=== PATIENT | female | born 1970 | race Caucasian/White ===

== ENCOUNTER 2019-09-11 12:03 | Emergency (ER) | payer MEDICARE, MEDICAID, SELFPAY ==
--- NOTE | ~2019-09-11 | CT_ITS ---
EXAMINATION: CT abdomen pelvis w con DATE: 09/11/2019 12:52 INDICATION: Abdominal pain. Nausea and vomiting. TECHNIQUE: Computed tomography (CT) of the abdomen and pelvis was performed with 100 mL Omnipaque 350 intravenous contrast. Automated exposure control and iterative reconstruction technique were employe d. The dose-length product was 387.19 mGy-cm. COMPARISON: CT abdomen and pelvis 12/28/2018, 10/03/2013 FINDINGS: The visualized portions of the lung bases demonstrate mild atelectasis. No pleural effusion . The heart size is normal. No pericardial effusion. Again seen is a chronic 15 mm mass in right hepa tic lobe, likely benign. There are changes of cholecystectomy. The spleen, pancreas, adrenal glands, and kidneys are normal. There are no dilated loops of bowel. The appendix is not visualized. There is a right inguinal hernia containing fat. There are no pathologically enlarged lymph nodes. There is n o free intraperitoneal fluid. There is mild thoracolumbar spondylosis. IMPRESSION: 1. Right inguinal hernia containing fat. Reviewed, dictated and finalized at location A.
[2019-09-11 12:02] VITALS: BP 146/105; PULSE 77; RESP 20; TEMP 37.7; O2SAT 100
[2019-09-11] MEDS: LACTATED RINGERS 1,000 ML 999 ML IV CONT (12:16)
[2019-09-11] MEDS: ONDANSETRON INJ 4 MG/2 ML VIAL IV PUSH (12:18)
[2019-09-11] MEDS: FAMOTIDINE 20 MG/2 ML VIAL IV PUSH (12:18)
--- NOTE | 2019-09-11 12:21 | ED.ABDPAIN ---
HPI - Abdominal Pain General Chief Complaint: Abdominal Pain <Raghu Esquivel PA-C - Last Filed: 09/11/19 13:40> Stated Complaint: ABD PAIN, N/V/D <Raghu Esquivel PA-C - Last Filed: 09/11/19 13:40> Source: patient and EMS <KATE Betancur Last Filed: 09/11/19 13:40> Mode of arrival: ambulatory <Raghu Esquivel PA-C - Last Filed: 09/11/19 13:40> Limitations: no limitations <Raghu Esquivel PA-C - Last Filed: 09/11/19 13:40> History of Present Illness HPI narrative: Patient is a 49-year-old female who presents to emergency department per EMS for evaluation of abdominal pain for the last 3 days noting sharp stabbing pain throughout the abdomen with associated emesis that occurred today patient not take anything for her symptoms patient notes irritable bowel disease. Patient notes having had colonoscopy in December. Patient is followed by Dr. Ayala. <Raghu Esquivel PA-C - Last Filed: 09/11/19 13:40> Related Data Allergies/Adverse Reactions: Allergies Allergy/AdvReac Type Severity Reaction Status Date / Time NSAIDS (Non-Steroidal Allergy Severe Verified 10/03/16 10:44 Anti-Inflamma ketorolac Allergy Intermediate Verified 12/28/18 15:23 ciprofloxacin Allergy Unknown Verified 10/03/16 10:44 Sulfa (Sulfonamide Allergy Unknown Verified 10/03/16 10:44 Antibiotics) <Raghu Esquivel PA-C - Last Filed: 09/11/19 13:40> Review of Systems Review of Systems: All systems reviewed & are unremarkable except as noted in HPI and below <Raghu Esquivel PA-C - Last Filed: 09/11/19 13:40> PMFSH Past Medical History Medical History: Medical History Anemia Anxiety Arthritis Asthma Bronchitis C. difficile diarrhea Colitis COPD (chronic obstructive pulmonary disease) Crohn's disease Depression DJD (degenerative joint disease) Fibroids GERD (gastroesophageal reflux disease) History of angina History of bipolar disorder History of osteoporosis HLD (hyperlipidemia) HPV (human papilloma virus) anogenital infection IBS (irritable bowel syndrome) Migraine Ovarian cancer Pancreatitis Pneumonia Previous known suicide attempt x2 Schizoaffective disorder UTI (urinary tract infection) <Raghu Esquivel PA-C - Last Filed: 09/11/19 13:40> Surgical History Surgical History: Surgical History H/O right knee surgery H/O Spinal surgery T12 cartilage removed H/O: hysterectomy History of cholecystectomy History of tonsillectomy <Raghu Esquivel PA-C - Last Filed: 09/11/19 13:40> Social History Social History: Social History Smoking status: Current every day smoker Gender identity (if verbalized by the patient): Female <Raghu Esuqivel PA-C - Last Filed: 09/11/19 13:40> Exam Narrative: Exam Narrative: GENERAL: Ill-appearing, well-nourished, and in acute pain HEAD: Normocephalic, atraumatic. EYES: PERRLA and EOMI. ENT: Nares clear, no rhinorrhea or epistaxis. Mucous membranes moist. Oropharynx without tonsillar hypertrophy exudate or other lesions. NECK: Supple. No adenopathy or masses. CHEST: Clear to auscultation. No respiratory distress. No wheezes rales or rhonchi HEART: Regular rate and rhythm. No murmur heard. Normal peripheral pulses. ABDOMEN: Abdomen is firm with generalized tenderness, nondistended, normal active bowel sounds. EXTREMITIES: Normal range of motion. No edema. SKIN: Warm, dry, no rash. NEURO: No focal deficits. Alert and oriented x3. Cranial nerves II through XII grossly intact PSYCH: Normal mood and affect. <Raghu Esquivel PA-C - Last Filed: 09/11/19 13:40> Course Course Emergency Course: Patient in the room aware of case findings treatment plan and diagnosis agreeing to follow-up with her specialist as directed <Raghu Ortez
[2019-09-11 12:25] LABS: Basophils Percent Auto 0.4 % (0.2-1.2); Eosinophils Absolute Auto 0.2 K/mm3 (0-0.3); Eosinophils Percent Auto 2.5 % (0-4.4); Hemoglobin 14.2 g/dL (12.0-15.0); Immature Granulocyte Absolute 0.02 K/mm3 (0.00-0.031); Immature Granulocyte Percent A 0.3 % (0-0.5); Lymphocytes Absolute Auto 4.09 K/mm3 (0.9-3.2); Lymphocytes Percent Auto 53.7 % (18.3-44.2); Mean Corpuscular HGB Conc 34.6 g/dl (32-36); Mean Corpuscular Hemoglobin 32.2 pg (26-34); Mean Platelet Volume 8.9 fl (7.4-10.4); Monocytes Absolute Auto 0.6 K/mm3 (0.1-0.6); Monocytes Percent Auto 7.9 % (2.6-8.5); Neutrophils Absolute Auto 2.7 K/mm3 (1.3-6.7); Neutrophils Percent Auto 35.2 % (45.5-73.1); Platelet Count Result 323 k/mm3 (150-375); Red Blood Count 4.41 M/mm3 (4.2-5.4); Red Cell Distribution Width 12.1 % (11.5-14.5); White Blood Count 7.6 K/mm3 (4.5-10.0)
[2019-09-11 12:33] VITALS: PULSE 67; RESP 20; O2SAT 97
[2019-09-11] MEDS: LORAZEPAM INJ 2 MG/ML VIAL 1 MG IV PUSH (12:33)
[2019-09-11 12:38] LABS: Alanine Aminotransferase 19 U/L (4-35); Albumin Level 4.7 g/dL (3.5-5.1); Alkaline Phosphatase 82 U/L (38-126); Aspartate Amino Transferase 23 U/L (14-36); Bilirubin,Total 0.3 mg/dL (0.2-1.3); Blood Urea Nitrogen 7 mg/dL (7-17); Calcium 9.5 mg/dL (8.4-10.2); Carbon Dioxide 27 mmol/L (22-30); Chloride 104 mmol/L (98-107); Estimated CRCL calculation 82 ml/min; Estimated Glomerular Filt Rate > 60; Glucose 91 mg/dL (65-105); Lipase 65 U/L (23-300); Potassium 4.5 mmol/L (3.4-5.0); Sodium 139 mmol/L (137-145)
[2019-09-11 12:50] LABS: Add Urine Microscopic? NO; Appearance Urine Clear (Clear); Bilirubin Urine Negative (Negative); Blood Urine Negative (Negative); Color Urine Straw (Yellow); Glucose Urine UA Negative (Negative); Ketones Urine Negative (Negative); Leukocyte Esterase Ur Negative LEU/UL (Negative); Nitrate Urine Negative (Negative); Protein Urine Negative (Negative); Specific Grav Ur 1.008 (1.001-1.035); Urobilinogen Urine Negative mg/dL (<2.0)
[2019-09-11 13:53] VITALS: BP 133/78; PULSE 60; RESP 14; O2SAT 100
== END 2019-09-11 13:55 | disposition home or self-care (01) ==
PROVIDERS: Emergency Medicine Emergency Medical Services; Emergency Provider Emergency Medicine; PCP Family Medicine
DX: R10.9 Unspecified abdominal pain (principal); M19.90 Unspecified osteoarthritis, unspecified site; J44.9 Chronic obstructive pulmonary disease, unspecified; K50.90 Crohn's disease, unspecified, without complications; K21.9 Gastro-esophageal reflux disease without esophagitis; M81.0 Age-related osteoporosis without current pathological fracture; E78.5 Hyperlipidemia, unspecified; K40.90 Unilateral inguinal hernia, without obstruction or gangrene, not specified as recurrent; Z86.2 Personal history of diseases of the blood and blood-forming organs and certain disorders involving the immune mechanism; Z85.43 Personal history of malignant neoplasm of ovary; Z87.440 Personal history of urinary (tract) infections
CPT/HCPCS: 36415; 74177; 80053; 81003; 83690; 85025; 96361; 96365; 96375; 99284; J0131; J2060; J2405; J7120; Q9967

== ENCOUNTER 2019-09-23 12:05 | Emergency (ER) | payer MEDICARE, MEDICAID, SELFPAY ==
--- NOTE | ~2019-09-23 | XR_ITS ---
EXAMINATION: XR foot LT min 3V DATE: 09/23/2019 12:51 INDICATION: Left foot and third toe pain post multiple injuries TECHNIQUE: Dorsoplantar, two oblique and lateral views of the left foot were obtained. COMPARISON: 05/27/2008 FINDINGS: Oblique extra-articular fracture across the left third middle phalangeal diaphysis. There is some inc reased sclerosis along the fracture margins and some periosteal reaction along the margins of the fra cture suggesting subacute chronicity. Alignment remains essentially anatomic. No other fractures iden tified. Joint spaces are relatively preserved. Soft tissue swelling about the third toe. IMPRESSION: 1. Nondisplaced ununited subacute appearing extra articular fracture across the left third middle pha lanx. Reviewed, dictated and finalized at location A. IMPRESSION: 1. Nondisplaced ununited subacute appearing extra articular fracture across the left third middle phalanx.
[2019-09-23 12:33] VITALS: BP 135/86; PULSE 84; RESP 16; TEMP 36.5; O2SAT 99
--- NOTE | 2019-09-23 13:11 | ED.LOWEXIN ---
HPI - Extremity Injury (Lower) General Chief Complaint: Extremity Injury, Lower Stated Complaint: left third toe pain Time Seen by Provider: 09/23/19 13:04 Source: patient and RN notes reviewed Mode of arrival: ambulatory Limitations: no limitations History of Present Illness HPI Narrative: Patient presents today complaining of pain to the left third toe. States she broke the toe on July 21, but did not have an x-ray following this injury. 2 days ago, she was carrying a case of water at home and states at least 8 bottles fell on the affected toe, injuring it further. She does report some tingling on the bottom of the toe and at the base. She has been taking ibuprofen and her Stanton 10/325. Currently rates her pain 10/24. MD complaint: foot injury Related Data Home Medications Medication Instructions Recorded Confirmed bupropion HCl 75 mg PO DAILY 09/23/19 09/23/19 hydrocodone-acetaminophen 1 tablet PO DIRECTED 09/23/19 09/23/19 hydroxyzine HCl 25 mg PO DAILY 09/23/19 09/23/19 sumatriptan succinate 100 mg PO DAILY 09/23/19 09/23/19 trazodone 100 mg PO DAILY 09/23/19 09/23/19 Allergies Allergy/AdvReac Type Severity Reaction Status Date / Time NSAIDS (Non-Steroidal Allergy Severe Verified 10/03/16 10:44 Anti-Inflamma ketorolac Allergy Intermediate Verified 12/28/18 15:23 ciprofloxacin Allergy Unknown Verified 10/03/16 10:44 Sulfa (Sulfonamide Allergy Unknown Verified 10/03/16 10:44 Antibiotics) Review of Systems Review of Systems: Narrative: CONSTITUTIONAL: Denies body aches, fever, chills, or sweats. EYES: Denies visual changes, redness, or discharge. ENT: Denies rhinorrhea, congestion, sore throat, or otalgia. CARDIOVASCULAR: Denies chest pain, palpitations, or edema. RESPIRATORY: Denies cough or dyspnea. GASTROINTESTINAL: Denies abdominal pain, nausea, vomiting, or diarrhea. GENITOURINARY: Denies dysuria or hematuria. SKIN: Denies rash, itching, or wounds. MUSCULOSKELETAL: Denies back pain, or myalgia. + Left third toe pain NEUROLOGIC: Denies headache, numbness, tingling, or weakness. PSYCH: Denies depression or anxiety. PMFSH Social History Social History Smoking status: Current every day smoker Gender identity (if verbalized by the patient): Female Comments At time of signature, I have reviewed and agree with nursing past medical, surgical, social and family history unless otherwise noted. Please see nursing chart for further information. There is no relevant family history pertinent to the presenting complaint Exam Narrative: Exam Narrative: GENERAL: Well-appearing, well-nourished, and in no acute distress. HEAD: Normocephalic, atraumatic. EYES: EOMI. No redness or drainage. ENT: Mucous membranes pink and moist. NECK: Normal AROM. CHEST: No respiratory distress. EXTREMITIES: Left foot: Tenderness to the third toe with mild edema. No ecchymosis or erythema noted. Tenderness to the base of toes 2 through 4. Distal sensation intact. Capillary refill normal. Pedal pulse normal. AROM of the toe is normal with increased pain. Remainder of the foot is normal. All other extremities grossly normal. SKIN: Warm, dry, no rash. Capillary refill normal. Normal skin turgor. NEURO: No focal deficits. Alert and oriented x3. Gait steady. PSYCH: Normal affect. No signs of depression or anxiety. Course Vital Signs Vital signs: Vital Signs Temperature 97.7 F 09/23/19 12:33 Pulse Rate 84 09/23/19 12:33 Respiratory Rate 16 09/23/19 12:33 Blood Pressure 135/86 09/23/19 12:33 Pulse Oximetry 99 09/23/19 12:33 Temperature 97.7 F 09/23/19 12:33 Pulse Rate 84 09/23/19 12:33 Respiratory Rate 16 09/23/19 12:33 Blood Pressure 135/86 09/23/19 12:33 Pulse Oximetry 99 09/23/19 12:33 Reviewed. Pt has been instructed to follow up with her PCP regarding her elevated blood pressure today. MDM - Extremity Inj
== END 2019-09-23 13:22 | disposition home or self-care (01) ==
PROVIDERS: Emergency Provider Nurse Practitioner; PCP Family Medicine
DX: S92.525A Nondisplaced fracture of middle phalanx of left lesser toe(s), initial encounter for closed fracture (principal); W22.8XXA Striking against or struck by other objects, initial encounter; F17.210 Nicotine dependence, cigarettes, uncomplicated
CPT/HCPCS: 73630; 99213; G0463

== ENCOUNTER → 2020-06-05 13:29 | Outpatient (CLI) | payer MEDICARE, MEDICAID, SELFPAY ==
--- NOTE | ~2020-06-05 | MR_ITS ---
EXAMINATION: MR foot LT wo con DATE: 06/05/2020 14:20 INDICATION: Left foot pain TECHNIQUE: Magnetic resonance imaging (MRI) of the left fore/mid foot was performed without intraveno us contrast. Sequences included sagittal T1-weighted FSE, sagittal fluid sensitive FSE STIR, coronal PD-weighted FS FSE, coronal T1-weighted FSE, axial PD-weighted FS FSE, and axial PD-weighted FSE. COMPARISON: Radiograph dated 09/23/2019 FINDINGS: Bone alignment is normal. The marker indicating the site of maximal pain is located dorsal to the dis fritz diaphysis of the second metatarsal. The prior fracture of the third middle phalanx has healed in essentially anatomic alignment. Low signal intensity sclerotic bone island at the head of the first m etatarsal. Bone marrow signal is otherwise normal with no reactive edema, fracture or pathologic deisy ow replacing process. Joint spaces are normal. No joint effusions. The visualized portions of the fle xor and extensor tendons are normal. No tenosynovitis, bursitis or other abnormal fluid collections. The Lisfranc ligament complex as well as the collateral ligament complex at the metatarsophalangeal a nd interphalangeal joints are normal. Intrinsic musculature of the foot appears normal. IMPRESSION: Normal MRI of the left fore and midfoot. No etiology identified for reported forefoot pain. Reviewed, dictated and finalized at location A. SELLER IMPRESSION: Normal MRI of the left fore and midfoot. No etiology identified for reported fo refoot pain.
== END ==
PROVIDERS: Visit Provider Podiatrist Foot & Ankle Surgery
DX: M79.672 Pain in left foot (principal)
CPT/HCPCS: 73718

== ENCOUNTER 2020-12-14 11:45 | Emergency (ER) | payer MEDICARE, MEDICAID, SELFPAY ==
--- NOTE | ~2020-12-14 | CT_ITS ---
EXAMINATION: CT abdomen pelvis w con EXAM DATE: 12/14/2020 14:36 INDICATION: Lower abdominal pain . Nausea and vomiting. Diarrhea. TECHNIQUE: Spiral CT of the abdomen and pelvis was performed following intravenous injection of 100 m L Omnipaque 350. Axial, coronal and sagittal images of the abdomen and pelvis were reviewed. The do se-length product (DLP) for this examination was 470.55 mGy-cm. The exposure was tailored according to patient size (auto mA exposure control), and iterative reconstruction (ASIR) was used as additiona l dose reduction technique. Comparison is made to prior examination from 09/11/19. FINDINGS: The liver, spleen, adrenal glands and pancreas are unremarkable. There are cholecystectomy clips. Portal and splenic veins are patent. Kidneys enhance symmetrically. There is no hydronephr osis. The uterus is not identified and has likely been surgically resected. The bladder is unremar kable. There is no retroperitoneal or pelvic lymphadenopathy. The appendix is not positively visualized. There is no pericecal inflammatory change to suggest appe ndicitis. The stomach and small bowel are unremarkable. There is expected amount of colonic stool. No free intraperitoneal gas. The heart is normal in size. There are no pericardial or pleural e ffusions. The lung bases are unremarkable. There are no osteoblastic or osteolytic lesions identifi ed. IMPRESSION: 1. No acute intra-abdominal findings. Reviewed, dictated and finalized at location B.
[2020-12-14 11:46] VITALS: BP 120/80; PULSE 94; RESP 20; TEMP 36.3; O2SAT 98
[2020-12-14 12:35] LABS: Basophils Percent Auto 0.6 % (0.2-1.2); Eosinophils Absolute Auto 0.1 K/mm3 (0-0.3); Eosinophils Percent Auto 1.4 % (0-4.4); Hemoglobin 14.6 g/dL (12.0-15.0); Immature Granulocyte Absolute 0.03 K/mm3 (0.00-0.031); Immature Granulocyte Percent A 0.4 % (0-0.5); Lymphocytes Absolute Auto 3.62 K/mm3 (0.9-3.2); Lymphocytes Percent Auto 50.2 % (18.3-44.2); Mean Corpuscular HGB Conc 34.8 g/dl (32-36); Mean Corpuscular Hemoglobin 31.7 pg (26-34); Mean Corpuscular Volume 91.1 fl (80-100); Mean Platelet Volume 8.8 fl (7.4-10.4); Monocytes Absolute Auto 0.6 K/mm3 (0.1-0.6); Monocytes Percent Auto 8.5 % (2.6-8.5); Neutrophils Absolute Auto 2.8 K/mm3 (1.3-6.7); Neutrophils Percent Auto 38.9 % (45.5-73.1); Platelet Count Result 343 k/mm3 (150-375); Red Blood Count 4.61 M/mm3 (4.2-5.4); Red Cell Distribution Width 12.6 % (11.5-14.5); White Blood Count 7.2 K/mm3 (4.5-10.0)
[2020-12-14 12:37] LABS: Add Urine Microscopic? YES; Appearance Urine Clear (Clear); Bilirubin Urine Negative (Negative); Blood Urine 1+ (Negative); Color Urine Colorless (Yellow); Glucose Urine UA Negative (Negative); Ketones Urine Negative (Negative); Leukocyte Esterase Ur Negative LEU/UL (Negative); Nitrate Urine Negative (Negative); Protein Urine Negative (Negative); RBC Urine 0-2 /hpf (0-2); Squamous Epithelial Cell Urine Rare /hpf (Few); Urobilinogen Urine Negative mg/dL (<2.0); WBC Urine 0-3 /hpf
[2020-12-14 12:38] LABS: Specific Grav Ur 1.003 (1.001-1.035)
[2020-12-14 12:49] VITALS: PULSE 75; RESP 15; O2SAT 99
[2020-12-14 12:51] LABS: Alanine Aminotransferase 23 U/L (4-35); Albumin Level 5.1 g/dL (3.5-5.1); Alkaline Phosphatase 80 U/L (38-126); Anion Gap 13 mmol/L (8-16); Aspartate Amino Transferase 28 U/L (14-36); Bilirubin,Total 0.3 mg/dL (0.2-1.3); Blood Urea Nitrogen 6 mg/dL (7-17); Calcium 10.2 mg/dL (8.4-10.2); Carbon Dioxide 25 mmol/L (22-30); Chloride 100 mmol/L (98-107); Estimated CRCL calculation 78 ml/min; Estimated Glomerular Filt Rate > 60; Glucose 88 mg/dL (65-110); Lipase 116 U/L (23-300); Potassium 3.7 mmol/L (3.4-5.0); Sodium 138 mmol/L (137-145)
--- NOTE | 2020-12-14 13:57 | ED.ABDPAIN ---
HPI - Abdominal Pain General Chief Complaint: Abdominal Pain Stated Complaint: ABD PAIN Time Seen by Provider: 12/14/20 13:56 History of Present Illness HPI narrative: 50 yo female w/ h/o Crohn's disease, diverticulitis presents to the Ed c/o abdominal pain. LLQ abdominal pain for the past 2 days. Moderate intensity. Associated with frequent diarrhea, nausea, and 2 episodes of vomiting. Symptoms are similar to previous flares of crohn's disease. Related Data Home Medications Medication Instructions Recorded Confirmed bupropion HCl 75 mg PO DAILY 09/23/19 09/23/19 hydrocodone-acetaminophen 1 tablet PO DIRECTED 09/23/19 09/23/19 hydroxyzine HCl 25 mg PO DAILY 09/23/19 09/23/19 sumatriptan succinate 100 mg PO DAILY 09/23/19 09/23/19 trazodone 100 mg PO DAILY 09/23/19 09/23/19 Allergies Allergy/AdvReac Type Severity Reaction Status Date / Time NSAIDS (Non-Steroidal Allergy Severe Unknown Verified 12/14/20 12:44 Anti-Inflamma ketorolac Allergy Intermediate Unknown Verified 12/14/20 12:44 ciprofloxacin Allergy Unknown Rash Verified 12/14/20 12:44 Sulfa (Sulfonamide Allergy Unknown Anaphylaxis Verified 12/14/20 12:44 Antibiotics) Review of Systems Review of Systems: All systems reviewed & are unremarkable except as noted in HPI and below Constitutional: Constitutional: Denies fever(s) Cardiovascular: Cardiovascular: Denies chest pain Respiratory: Respiratory: Denies dyspnea Genitourinary: Genitourinary: Denies hematuria and Denies dysuria Musculoskeletal: Musculoskeletal: Reports no additional musculoskeletal complaints Neurologic: Reports system reviewed and no additional complaints, except as documented PMFSH Past Medical History Medical History Anemia Anxiety Arthritis Asthma Bronchitis C. difficile diarrhea Colitis COPD (chronic obstructive pulmonary disease) Crohn's disease Depression DJD (degenerative joint disease) Fibroids GERD (gastroesophageal reflux disease) History of angina History of bipolar disorder History of osteoporosis HLD (hyperlipidemia) HPV (human papilloma virus) anogenital infection IBS (irritable bowel syndrome) Migraine Ovarian cancer Pancreatitis Pneumonia Previous known suicide attempt x2 Schizoaffective disorder UTI (urinary tract infection) Surgical History Surgical History H/O right knee surgery H/O Spinal surgery T12 cartilage removed H/O: hysterectomy History of cholecystectomy History of tonsillectomy Family History Family History Sibling Depression Hypertension Family history of elevated blood lipids Father Family history of arthritis Other Family history of anemia Family history of mental disorder Family history of thyroid disease Social History Social History Smoking status: Current every day smoker Gender identity (if verbalized by the patient): Female Exam Const: General: healthy appearing, no acute distress and alert Orientation/consciousness: patient oriented x3 HENMT: Head: normal to inspection Neck: Neck: normal visual inspection Chest: Chest palpation & inspection: no tenderness Resp: Effort & Inspection: normal respiratory effort Auscultation: clear to auscultation bilaterally, no rales, no rhonchi and no wheezes Cardio: Jugular venous distension: no JVD Rate: regular rate Rhythm: regular rhythm Heart sounds: no murmurs GI: Inspection: non-distended GI Palp: Yes Soft to palpation, Yes Tenderness to palpation present (GI) (lower), No Guarding due to palpation present (GI) and No Rebound tenderness present Auscultation: normal bowel sounds Skin: General skin exam: normal color Neuro: General: patient oriented x3 and moves all extremities Speech: normal speech Extrem: General: no edema
[2020-12-14] MEDS: SODIUM CHLORIDE 0.9% IV 1,000 ML 999 ML IV CONT (14:14)
[2020-12-14] MEDS: fentaNYL CITRATE INJ (*CRX) 100 MCG/2 ML VIAL 50 MCG IV PUSH (14:14)
[2020-12-14] MEDS: metroNIDAZOLE 250 MG TABLET 500 MG PO (15:19)
[2020-12-14] MEDS: METOCLOPRAMIDE HCL INJ 10 MG/2 ML VIAL IV PUSH (15:20)
[2020-12-14 16:41] VITALS: BP 112/88; PULSE 70; RESP 18; O2SAT 100
== END 2020-12-14 17:36 | disposition home or self-care (01) ==
PROVIDERS: Emergency Medicine; Emergency Provider Emergency Medicine; PCP Family Medicine
DX: R10.32 Left lower quadrant pain (principal); K50.90 Crohn's disease, unspecified, without complications; J44.9 Chronic obstructive pulmonary disease, unspecified; E78.5 Hyperlipidemia, unspecified; K21.9 Gastro-esophageal reflux disease without esophagitis; M19.90 Unspecified osteoarthritis, unspecified site; M81.0 Age-related osteoporosis without current pathological fracture; F31.9 Bipolar disorder, unspecified; F25.9 Schizoaffective disorder, unspecified; F41.9 Anxiety disorder, unspecified; F17.200 Nicotine dependence, unspecified, uncomplicated; Z86.2 Personal history of diseases of the blood and blood-forming organs and certain disorders involving the immune mechanism; Z85.41 Personal history of malignant neoplasm of cervix uteri; Z87.01 Personal history of pneumonia (recurrent); Z87.440 Personal history of urinary (tract) infections
CPT/HCPCS: 36415; 74177; 80053; 81001; 83690; 85025; 96361; 96374; 96375; 99284; A9270; J2765; J3010; J7030; Q9967

== ENCOUNTER 2020-12-29 10:44 | Emergency (ER) | payer MEDICARE, MEDICAID, SELFPAY ==
--- NOTE | ~2020-12-29 | CT_ITS ---
EXAMINATION: CT abdomen pelvis w con EXAM DATE: 12/29/2020 12:59 INDICATION: Abdominal pain, hematochezia, hx Crohn's disease. Loose bloody stools. Nausea. TECHNIQUE: Spiral CT of the abdomen and pelvis was performed following intravenous injection of 100 m L Omnipaque 350. Axial, coronal and sagittal images of the abdomen and pelvis were reviewed. The do se-length product (DLP) for this examination was 422.58 mGy-cm. The exposure was tailored according to patient size (auto mA exposure control), and iterative reconstruction (ASIR) was used as additiona l dose reduction technique. Comparison is made to prior examination from 09/11/2019. FINDINGS: Small liver lesion with peripheral nodular enhancement consistent with hemangioma, right li john lobe measuring 1.5 cm, stable. The liver, spleen, adrenal glands and pancreas are otherwise unre markable. Gallbladder is unremarkable. No biliary obstruction. Portal and splenic veins are patent . Kidneys enhance symmetrically. There is no hydronephrosis. The uterus is not identified and has likely been surgically resected. The bladder is unremarkable. There is no retroperitoneal or pelvi c lymphadenopathy. There is mild scattered arteriosclerotic disease. The appendix is not positively visualized. There is no pericecal inflammatory change to suggest appe ndicitis. The stomach and small bowel are unremarkable. There is expected amount of colonic stool. No free intraperitoneal gas. The heart is normal in size. There are no pericardial or pleural e ffusions. Mild basilar atelectasis and emphysema. There are mild bony degenerative changes. No susp icious bone lesions. IMPRESSION: 1. No acute intra-abdominal findings. 2. Small liver hemangioma. Reviewed, dictated and finalized at location B.
[2020-12-29 10:47] VITALS: BP 115/77; PULSE 79; RESP 16; TEMP 36.2; O2SAT 100
[2020-12-29 11:05] LABS: Basophils Percent Auto 0.6 % (0.2-1.2); Eosinophils Absolute Auto 0.1 K/mm3 (0-0.3); Eosinophils Percent Auto 1.2 % (0-4.4); Hematocrit 40.5 % (37.0-47.0); Hemoglobin 13.9 g/dL (12.0-15.0); Immature Granulocyte Absolute 0.03 K/mm3 (0.00-0.031); Immature Granulocyte Percent A 0.5 % (0-0.5); Lymphocytes Absolute Auto 2.18 K/mm3 (0.9-3.2); Lymphocytes Percent Auto 33.6 % (18.3-44.2); Mean Corpuscular HGB Conc 34.3 g/dl (32-36); Mean Corpuscular Hemoglobin 32.4 pg (26-34); Mean Corpuscular Volume 94.4 fl (80-100); Mean Platelet Volume 8.8 fl (7.4-10.4); Monocytes Absolute Auto 0.4 K/mm3 (0.1-0.6); Monocytes Percent Auto 6.6 % (2.6-8.5); Neutrophils Absolute Auto 3.7 K/mm3 (1.3-6.7); Neutrophils Percent Auto 57.5 % (45.5-73.1); Platelet Count Result 281 k/mm3 (150-375); Red Blood Count 4.29 M/mm3 (4.2-5.4); Red Cell Distribution Width 12.6 % (11.5-14.5); White Blood Count 6.5 K/mm3 (4.5-10.0)
[2020-12-29 11:17] LABS: Alanine Aminotransferase 25 U/L (4-35); Albumin Level 4.9 g/dL (3.5-5.1); Alkaline Phosphatase 84 U/L (38-126); Anion Gap 14 mmol/L (8-16); Aspartate Amino Transferase 35 U/L (14-36); Bilirubin,Total 0.7 mg/dL (0.2-1.3); Blood Urea Nitrogen 13 mg/dL (7-17); Calcium 9.3 mg/dL (8.4-10.2); Carbon Dioxide 22 mmol/L (22-30); Chloride 100 mmol/L (98-107); Estimated CRCL calculation 78 ml/min; Estimated Glomerular Filt Rate > 60; Glucose 97 mg/dL (65-110); Potassium 4.4 mmol/L (3.4-5.0); Sodium 136 mmol/L (137-145)
[2020-12-29 11:29] LABS: Prothrombin Time 13.1 Seconds (11.1-14.7)
[2020-12-29 11:30] LABS: Partial Thromboplastin Time 25.2 SECONDS (22.3-36.8)
[2020-12-29 11:45] VITALS: BP 119/82; PULSE 71; RESP 16; O2SAT 99
--- NOTE | 2020-12-29 12:12 | ED.GIBLEED ---
HPI - GI Bleed General Chief complaint: GI Bleed Stated complaint: Blood in Stool Time Seen by Provider: 12/29/20 11:53 Source: patient Mode of arrival: ambulatory Limitations: no limitations History of Present Illness HPI Narrative: This is a 50 year old female that presents to the ER for hematochezia. Reports several loose stools since yesterday. Reports history of Crohn's disease. Reports crampy abdominal pain. Her GI doctor is Dr. Joaquim Puente. Denies fever, vomiting, or dysuria. Related Data Home Medications Medication Instructions Recorded Confirmed hydrocodone-acetaminophen 1 tablet PO DIRECTED 09/23/19 09/23/19 sumatriptan succinate 100 mg PO DAILY 09/23/19 09/23/19 trazodone 100 mg PO DAILY 09/23/19 09/23/19 lamotrigine 12/29/20 omeprazole 12/29/20 Allergies Allergy/AdvReac Type Severity Reaction Status Date / Time ciprofloxacin Allergy Unknown Rash Verified 12/14/20 12:44 Sulfa (Sulfonamide Allergy Unknown Anaphylaxis Verified 12/14/20 12:44 Antibiotics) ketorolac AdvReac Intermediate Nausea Verified 12/29/20 11:51 NSAIDS (Non-Steroidal AdvReac Intermediate Nausea Verified 12/29/20 11:51 Anti-Inflamma Review of Systems Review of Systems: CONSTITUTIONAL: Denies fever GASTROINTESTINAL: Reports abdominal pain, and diarrhea. Denies nausea or vomiting GENITOURINARY: Denies dysuria All systems reviewed & are unremarkable except as noted in HPI and below PMFSH Past Medical History Medical History (Updated 12/29/20 @ 15:43 by Aga Elmore PA-C) Anemia Anxiety Arthritis Asthma Bronchitis C. difficile diarrhea Colitis COPD (chronic obstructive pulmonary disease) Crohn's disease Depression DJD (degenerative joint disease) Fibroids GERD (gastroesophageal reflux disease) History of angina History of bipolar disorder History of osteoporosis HLD (hyperlipidemia) HPV (human papilloma virus) anogenital infection IBS (irritable bowel syndrome) Migraine Ovarian cancer Pancreatitis Pneumonia Previous known suicide attempt x2 Schizoaffective disorder UTI (urinary tract infection) Surgical History Surgical History H/O right knee surgery H/O Spinal surgery T12 cartilage removed H/O: hysterectomy History of cholecystectomy History of tonsillectomy Family History Family History Sibling Depression Hypertension Family history of elevated blood lipids Father Family history of arthritis Other Family history of anemia Family history of mental disorder Family history of thyroid disease Social History Social History Smoking status: Current every day smoker Gender identity (if verbalized by the patient): Female Exam Narrative: GENERAL: Well-appearing, well-nourished, and in no acute distress. HEAD: Normocephalic, atraumatic. EYES: EOMI. CHEST: Clear to auscultation. No respiratory distress. No wheezes rales or rhonchi HEART: Regular rate and rhythm. No murmur heard. Normal peripheral pulses. ABDOMEN: Soft, nondistended, normal active bowel sounds. Tender to palpation throughout the lower abdomen, without guarding EXTREMITIES: Normal range of motion. No edema. SKIN: Warm, dry, no rash. NEURO: No focal deficits. Alert and oriented x3. PSYCH: Normal mood and affect RECTAL: Several external hemorrhoids without active bleeding. 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 Would like metronidazole 500mg 3 times daily for 10 days. Patient is to follow-up in clinic Date: 12/29/20 Time: 15:00 Vital Signs Vital signs: Vital Signs Temperature 97.1 F L 12/29/20 10:47 Pulse Rate 79 12/29/20 10:47 Respiratory Rate 16 12/29/20 10:47 Blood Pressure 115/77 12/29/20 10:47 Pulse Oximetry 100 12/29/20 10:47 Temperature 97.1 F L
[2020-12-29] MEDS: MORPHINE SULFATE (*CRX) 4 MG/ML INJ IV PUSH ×2 (12:34→15:30)
[2020-12-29] MEDS: ONDANSETRON INJ 4 MG/2 ML VIAL IV PUSH (12:35)
[2020-12-29] MEDS: SODIUM CHLORIDE 0.9% IV 1,000 ML 999 ML IV CONT (12:35)
[2020-12-29 16:22] VITALS: BP 104/69; PULSE 65; RESP 17; O2SAT 95
== END 2020-12-29 16:22 | disposition home or self-care (01) ==
PROVIDERS: Emergency Provider Emergency Medicine; PCP Family Medicine
DX: R19.7 Diarrhea, unspecified (principal); F41.9 Anxiety disorder, unspecified; M19.90 Unspecified osteoarthritis, unspecified site; J44.9 Chronic obstructive pulmonary disease, unspecified; F32.9 Major depressive disorder, single episode, unspecified; E78.5 Hyperlipidemia, unspecified; F17.210 Nicotine dependence, cigarettes, uncomplicated; Z87.19 Personal history of other diseases of the digestive system; Z86.2 Personal history of diseases of the blood and blood-forming organs and certain disorders involving the immune mechanism; Z87.09 Personal history of other diseases of the respiratory system; Z90.49 Acquired absence of other specified parts of digestive tract; Z90.710 Acquired absence of both cervix and uterus; Z90.89 Acquired absence of other organs
CPT/HCPCS: 36415; 74177; 80053; 85025; 85610; 85730; 86850; 86900; 86901; 96374; 96375; 96376; 99284; J0131; J2270; J2405; J7030; Q9967

== ENCOUNTER 2021-05-01 16:48 | Emergency (ER) | payer MEDICARE, MEDICAID, SELFPAY ==
--- NOTE | 2021-05-01 16:55 | ED.URI ---
HPI - URI/Sore Throat General Chief Complaint: Upper Respiratory Infection Stated Complaint: sore throat/cough/congestion Time Seen by Provider: 05/01/21 17:20 Source: patient and RN notes reviewed Mode of arrival: ambulatory Limitations: no limitations History of Present Illness HPI Narrative: 50-year-old female with history of COPD presents with concern for 1 week history of cough, nasal congestion, sore throat. Reports cough has become productive with dugan-colored sputum. Reports history of pneumonia. She reports she has been using [id number] cough and cold medicines without relief. She denies shortness of breath MD elicited complaint: cough Related Data Home Medications Medication Instructions Recorded Confirmed hydrocodone-acetaminophen 1 tablet PO DIRECTED 09/23/19 05/01/21 sumatriptan succinate 100 mg PO DAILY 09/23/19 05/01/21 trazodone 100 mg PO DAILY 09/23/19 05/01/21 lamotrigine 25 mg PO DAILY 12/29/20 05/01/21 omeprazole 40 mg PO DAILY 12/29/20 05/01/21 cariprazine [Vraylar] 4.5 mg PO DAILY 05/01/21 05/01/21 mesalamine [Pentasa] 500 mg PO DAILY 05/01/21 05/01/21 methylprednisolone 4 mg PO DAILY 05/01/21 05/01/21 Allergies Allergy/AdvReac Type Severity Reaction Status Date / Time ciprofloxacin Allergy Unknown Rash Verified 05/01/21 17:17 Sulfa (Sulfonamide Allergy Unknown Anaphylaxis Verified 05/01/21 17:17 Antibiotics) ketorolac AdvReac Intermediate Nausea Verified 05/01/21 17:17 NSAIDS (Non-Steroidal AdvReac Intermediate Nausea Verified 05/01/21 17:17 Anti-Inflamma Review of Systems Review of Systems: CONSTITUTIONAL: Reports malaise. Chills, sweats, or fever. EYES: Denies visual changes, redness, or discharge. ENT: Reports rhinorrhea, congestion, sore throat. Sinus pain, otalgia CARDIOVASCULAR: Denies chest pain, palpitations, or edema. RESPIRATORY: Reports productive cough. Denies dyspnea. GASTROINTESTINAL: Denies abdominal pain, nausea, vomiting, diarrhea SKIN: Denies rash or itching. MUSCULOSKELETAL: Denies myalgia. NEUROLOGIC: Denies headache. All systems reviewed & are unremarkable except as noted in HPI and below PMFSH Past Medical History Medical History (Updated 05/01/21 @ 17:29 by Rafia Auguste NP) Anemia Anxiety Arthritis Asthma Bronchitis C. difficile diarrhea Colitis COPD (chronic obstructive pulmonary disease) Crohn's disease Depression DJD (degenerative joint disease) Fibroids GERD (gastroesophageal reflux disease) History of angina History of bipolar disorder History of osteoporosis HLD (hyperlipidemia) HPV (human papilloma virus) anogenital infection IBS (irritable bowel syndrome) Migraine Ovarian cancer Pancreatitis Pneumonia Previous known suicide attempt x2 Schizoaffective disorder UTI (urinary tract infection) Surgical History Surgical History H/O right knee surgery H/O Spinal surgery T12 cartilage removed H/O: hysterectomy History of cholecystectomy History of tonsillectomy Family History Family History Sibling Depression Hypertension Family history of elevated blood lipids Father Family history of arthritis Other Family history of anemia Family history of mental disorder Family history of thyroid disease Social History Social History Smoking status: Current every day smoker Gender identity (if verbalized by the patient): Female Comments At time of signature, agree with nursing past medical, surgical, social and family history. There is no relevant family history pertinent to the presenting complaint Exam Narrative: GENERAL: Well-appearing, well-nourished, and in no acute distress. HEAD: Normocephalic EYES: PERRLA, conjunctivae clear ENT: Nares clear. Mucous membranes moist. TM pearly dugan with dull light reflex bilaterally; no tragal tenderness. Orophary
[2021-05-01 16:58] VITALS: BP 105/77; PULSE 92; RESP 16; TEMP 36.6; O2SAT 99
== END 2021-05-01 17:35 | disposition home or self-care (01) ==
PROVIDERS: Emergency Provider Nurse Practitioner; PCP Family Medicine
DX: J06.9 Acute upper respiratory infection, unspecified (principal); Z20.822 Contact with and (suspected) exposure to COVID-19; J44.9 Chronic obstructive pulmonary disease, unspecified; F17.200 Nicotine dependence, unspecified, uncomplicated; M19.90 Unspecified osteoarthritis, unspecified site; Z86.19 Personal history of other infectious and parasitic diseases; K50.90 Crohn's disease, unspecified, without complications; K21.9 Gastro-esophageal reflux disease without esophagitis; I20.9 Angina pectoris, unspecified; M81.0 Age-related osteoporosis without current pathological fracture; Z85.43 Personal history of malignant neoplasm of ovary; F32.A Depression, unspecified
CPT/HCPCS: 87426; 99213; C9803; G0463

== ENCOUNTER → 2021-08-26 12:18 | Outpatient (CLI) | payer MEDICARE, MEDICAID, SELFPAY ==
--- NOTE | ~2021-08-26 | XR_ITS ---
EXAMINATION: XR thoracic spine 3V DATE: 08/26/2021 13:04 INDICATION: Thoracic degenerative disc disease. TECHNIQUE: 3 views of thoracic spine were obtained. COMPARISON: Thoracic spine radiographs 02/12/2018 FINDINGS: There is 5 degrees dextrocurvature of thoracic spine. Vertebral body heights are normal. Th ere is mildly decreased disc height at multiple levels in lower thoracic spine. There are small endpl ate osteophytes at most levels. IMPRESSION: 1. Mild thoracic spondylosis. Reviewed, dictated and finalized at location A.
== END ==
PROVIDERS: PCP Family Medicine
DX: M51.34 Other intervertebral disc degeneration, thoracic region (principal); M47.894 Other spondylosis, thoracic region
CPT/HCPCS: 72072

== ENCOUNTER 2021-12-16 09:30 | Emergency (ER) | payer MEDICARE, MEDICAID, SELFPAY ==
[2021-12-16] VITALS (7 sets, daily range): BP systolic 109–122; BP diastolic 73–92; PULSE 70–89; RESP 18–28; TEMP 36.9; O2SAT 93–98
--- NOTE | ~2021-12-16 | XR_ITS ---
EXAMINATION: XR chest 1V portable DATE: 12/16/2021 10:30 INDICATION: Cough and dyspnea. TECHNIQUE: A single frontal view of the chest was obtained. COMPARISON: Chest 2 views 11/22/2018 FINDINGS: There is no pneumonia, pleural effusion, or pneumothorax. The heart size is normal. IMPRESSION: 1. No acute cardiopulmonary disease. Reviewed, dictated and finalized at location A.
--- NOTE | 2021-12-16 09:37 | ED.URI ---
HPI - URI/Sore Throat General Chief Complaint: Upper Respiratory Infection Stated Complaint: URI Time Seen by Provider: 12/16/21 09:37 Source: patient Mode of arrival: ambulatory Limitations: no limitations History of Present Illness HPI Narrative: The patient is a 51 yo female with a history of COPD presenting to the emergency department for evaluation of cough and shortness of breath. Patient states that she has felt unwell over the past 72 hours. Patient reports runny nose, congestion, sinus drainage, frontal chest pain when she coughs as well as shortness of breath. Patient reports she has had audible wheezing. Patient is still smoking. Patient denies leg swelling or calf pain. No recent air or car travel. No history of DVT or coagulopathy. Patient denies radiation of the pain to the neck, jaw, back, shoulder. She is not diaphoretic. No fever. No significant myalgias. Patient denies any recent sick contacts. She has no known history of COVID. She reported that symptoms worsened after she used a flea bomb in her house and states that she may not have ventilated the room as well enough before using it. Related Data Home Medications Medication Instructions Recorded Confirmed hydrocodone 10 mg-acetaminophen 1 tablet PO DIRECTED 09/23/19 05/01/21 325 mg tablet sumatriptan succinate 100 mg tablet 100 mg PO DAILY 09/23/19 05/01/21 trazodone 100 mg tablet 100 mg PO DAILY 09/23/19 05/01/21 lamotrigine 25 mg tablet 25 mg PO DAILY 12/29/20 05/01/21 omeprazole 40 mg capsule,delayed 40 mg PO DAILY 12/29/20 05/01/21 release cariprazine 4.5 mg capsule 4.5 mg PO DAILY 05/01/21 05/01/21 (Vraylar) mesalamine 500 mg capsule,extended 500 mg PO DAILY 05/01/21 05/01/21 release (Pentasa) methylprednisolone 4 mg tablet 4 mg PO DAILY 05/01/21 05/01/21 Allergies Allergy/AdvReac Type Severity Reaction Status Date / Time ciprofloxacin Allergy Unknown Rash Verified 12/16/21 09:43 Sulfa (Sulfonamide Allergy Unknown Anaphylaxis Verified 12/16/21 09:43 Antibiotics) ketorolac AdvReac Intermediate Nausea Verified 12/16/21 09:43 NSAIDS (Non-Steroidal AdvReac Intermediate Nausea Verified 12/16/21 09:43 Anti-Inflamma Review of Systems Review of Systems: CONSTITUTIONAL: Denies fever, chills, or sweats. EYES: Denies visual changes, redness, or discharge. ENT: Reports rhinorrhea, congestion, denies sore throat CARDIOVASCULAR: Denies chest pain, palpitations, or edema. RESPIRATORY: Reports cough, wheezing, shortness of breath GASTROINTESTINAL: Denies abdominal pain, nausea, vomiting, or diarrhea. GENITOURINARY: Denies dysuria or hematuria. SKIN: Denies rash or itching. MUSCULOSKELETAL: Denies back pain, joint pain, or myalgia. NEUROLOGIC: Denies headache, numbness, or weakness. [facility] Past Medical History Medical History (Updated 12/16/21 @ 12:42 by Madeline Alfred MD) Anemia Anxiety Arthritis Asthma Bronchitis C. difficile diarrhea Colitis COPD (chronic obstructive pulmonary disease) Crohn's disease Depression DJD (degenerative joint disease) Fibroids GERD (gastroesophageal reflux disease) History of angina History of bipolar disorder History of osteoporosis HLD (hyperlipidemia) HPV (human papilloma virus) anogenital infection IBS (irritable bowel syndrome) Migraine Ovarian cancer Pancreatitis Pneumonia Previous known suicide attempt x2 Schizoaffective disorder UTI (urinary tract infection) Surgical History Surgical History H/O right knee surgery H/O Spinal surgery T12 cartilage removed H/O: hysterectomy History of cholecystectomy History of tonsillectomy Family History Family History Sibling Depression Hypertension Family history of elevated blood lipids Father Family history of arthritis Other Family history of anemia Family history of mental disorder Family history of t
--- NOTE | 2021-12-16 09:57 | ECG_ITS ---
Measurements Intervals [employer] Rate: 68 P: 70 IA: 151 QRS: 42 QRSD: 94 T: 67 QT: 356 QTc: 380 Interpretive Statements SINUS RHYTHM DELAYED PRECORDIAL R/S TRANSITION BORDERLINE T WAVE ABNORMALITY- INFERIOR LEADS BASELINE ARTIFACT- I, III, AVL, V6 BORDERLINE ECG NO PREVIOUS ECG AVAILABLE FOR COMPARISON Electronically Signed On 12-16-2021 11:58:44 CDT by Casey Rosa D.O.
[2021-12-16] MEDS: ALBUTEROL SULFATE NEB 2.5 MG/3 ML INH 5 MG INHALATION (10:05)
[2021-12-16] MEDS: IPRATROPIUM BR 0.02% INH SOLN 0.5 MG/2.5 ML VIAL INHALATION (10:06)
[2021-12-16] MEDS: SODIUM CHLORIDE 0.9% IV 500 ML 999 ML IV CONT (10:22)
[2021-12-16] MEDS: ACETAMINOPHEN 500 MG TABLET 1000 MG PO (10:23)
[2021-12-16] MEDS: methylPREDNISolone SOD SUCC 125 MG VIAL IV PUSH (10:23)
[2021-12-16 10:34] LABS: Basophils Percent Auto 0.6 % (0.2-1.2); Eosinophils Absolute Auto 0.1 K/mm3 (0-0.3); Eosinophils Percent Auto 1.7 % (0-4.4); Hematocrit 41.5 % (37.0-47.0); Hemoglobin 13.9 g/dL (12.0-15.0); Immature Granulocyte Absolute 0.03 K/mm3 (0.00-0.031); Immature Granulocyte Percent A 0.5 % (0-0.5); Lymphocytes Absolute Auto 2.02 K/mm3 (0.9-3.2); Lymphocytes Percent Auto 31.7 % (18.3-44.2); Mean Corpuscular HGB Conc 33.5 g/dl (32-36); Mean Corpuscular Hemoglobin 30.5 pg (26-34); Monocytes Absolute Auto 0.6 K/mm3 (0.1-0.6); Monocytes Percent Auto 8.9 % (2.6-8.5); Neutrophils Absolute Auto 3.6 K/mm3 (1.3-6.7); Neutrophils Percent Auto 56.6 % (45.5-73.1); Platelet Count Result 260 k/mm3 (150-375); Red Blood Count 4.56 M/mm3 (4.2-5.4); Red Cell Distribution Width 12.9 % (11.5-14.5); White Blood Count 6.4 K/mm3 (4.5-10.0)
[2021-12-16 10:43] LABS: Alanine Aminotransferase 22 U/L (6-35); Albumin Level 4.7 g/dL (3.5-5.1); Alkaline Phosphatase 74 U/L (38-126); Anion Gap 11 mmol/L (8-16); Aspartate Amino Transferase 27 U/L (14-36); Bilirubin,Total 0.4 mg/dL (0.2-1.3); Blood Urea Nitrogen 6 mg/dL (7-17); Calcium 9.6 mg/dL (8.4-10.2); Carbon Dioxide 28 mmol/L (22-30); Chloride 102 mmol/L (98-107); Estimated CRCL calculation 69 ml/min; Estimated Glomerular Filt Rate > 60; Glucose 92 mg/dL (65-110); Potassium 3.9 mmol/L (3.4-5.0); Sodium 141 mmol/L (137-145)
[2021-12-16] MEDS: IPRATROPIUM BR 0.02% INH SOLN 0.5 MG/2.5 ML VIAL (10:43)
[2021-12-16] MEDS: ALBUTEROL SULFATE NEB 2.5 MG/0.5 ML INH 5 MG (10:44)
[2021-12-16 10:55] LABS: Troponin I < 0.012 ng/mL (0.000-0.034)
[2021-12-16 11:11] LABS: SARS-CoV-2 RNA PCR Negative
== END 2021-12-16 13:18 | disposition home or self-care (01) ==
PROVIDERS: Emergency Provider Emergency Medicine; PCP Family Medicine
DX: J44.1 Chronic obstructive pulmonary disease with (acute) exacerbation (principal); J06.9 Acute upper respiratory infection, unspecified; Z20.822 Contact with and (suspected) exposure to COVID-19; E78.5 Hyperlipidemia, unspecified; K50.90 Crohn's disease, unspecified, without complications; K21.9 Gastro-esophageal reflux disease without esophagitis; M19.90 Unspecified osteoarthritis, unspecified site; M81.0 Age-related osteoporosis without current pathological fracture; F41.9 Anxiety disorder, unspecified; F32.A Depression, unspecified; F20.9 Schizophrenia, unspecified; Z85.43 Personal history of malignant neoplasm of ovary; Z87.01 Personal history of pneumonia (recurrent); Z86.2 Personal history of diseases of the blood and blood-forming organs and certain disorders involving the immune mechanism; Z87.440 Personal history of urinary (tract) infections; Z90.710 Acquired absence of both cervix and uterus; F17.200 Nicotine dependence, unspecified, uncomplicated; R94.31 Abnormal electrocardiogram [ECG] [EKG]
CPT/HCPCS: 36415; 71045; 80053; 84484; 85025; 93005; 94640; 96361; 96374; 99285; A9270; C9803; J2930; J7040; U0003; U0005

== ENCOUNTER → 2022-02-21 12:47 | Outpatient (CLI) | payer MEDICARE, MEDICAID, SELFPAY ==
--- NOTE | ~2022-02-21 | MR_ITS ---
EXAMINATION: MR cervical spine wo con DATE: 02/21/2022 13:33 INDICATION: Radiculopathy TECHNIQUE: Magnetic resonance imaging (MRI) of the cervical spine was performed without intravenous c ontrast. Sequences included sagittal T2-weighted FSE, sagittal T2-weighted FS FSE, sagittal T1-weight ed FSE, axial MERGE and axial T2-weighted FSE. COMPARISON: 12/27/2017 FINDINGS: Bone alignment is normal. Vertebral body heights are normal. Bone marrow signal intensity is normal . Intervertebral disc heights are normal. Cord signal intensity is normal. Cervical soft tissues are unremarkable. The following disc levels are specifically discussed: C2-C3: The disc does not extend beyond the endplate margin. There is no uncovertebral joint osteoarth ritis. There is mild bilateral facet joint osteoarthritis. There is no neural foraminal stenosis. The re is no central canal stenosis. C3-C4: Annular fissure and very small central disc protrusion. There is no uncovertebral joint osteoa rthritis. There is mild bilateral facet joint osteoarthritis. There is no neural foraminal stenosis. There is no central canal stenosis. C4-C5: Annular fissure and small central disc extrusion with disc material extending a few millimeter s cephalad and caudal to the level of the endplates. There is mild bilateral uncovertebral joint oste oarthritis. There is mild right and moderate left facet joint osteoarthritis. There is no neural fora kaylin stenosis. There is mild central canal stenosis with the disc extrusion slightly indenting the c entral ventral surface of the cord. C5-C6: The disc does not extend beyond the endplate margin. There is mild bilateral uncovertebral darcie nt osteoarthritis. There is mild bilateral facet joint osteoarthritis. There is no neural foraminal s tenosis. There is no central canal stenosis. C6-C7: Small central disc protrusion. There is mild bilateral uncovertebral joint osteoarthritis. The re is mild right and minimal left facet joint osteoarthritis. There is no neural foraminal stenosis. There is minimal central canal stenosis. C7-T1: The disc does not extend beyond the endplate margin. There is no uncovertebral joint osteoarth ritis. There is mild bilateral facet joint osteoarthritis. There is no neural foraminal stenosis. The re is no central canal stenosis. IMPRESSION: 1. Interval progression of still very mild cervical spondylosis. Reviewed, dictated and finalized at location A. TY COUNSELOR
--- NOTE | ~2022-02-21 | MR_ITS ---
EXAMINATION: MR lumbar spine wo con DATE: 02/21/2022 13:40 INDICATION: Low back pain. TECHNIQUE: Magnetic resonance imaging (MRI) of the lumbar spine was performed without intravenous con trast. Sequences included sagittal T2-weighted FSE, sagittal T2-weighted FS FSE, sagittal T1-weighted FSE, and axial T2-weighted FSE. COMPARISON: CT abdomen and pelvis 12/29/2020, 12/28/2018 FINDINGS: Bone alignment is normal. There is mild chronic anterior wedging of T12 vertebral body. The re is chronic discogenic sclerosis of inferior endplate of T11. There is a Schmorl's node of the supe rior endplate of L3. There is mildly decreased disc height at L2-L3. The distal spinal cord signal in tensity is normal. The conus medullaris is at T12-L1. The following disc levels are specifically disc ussed: L1-L2: The disc does not extend beyond the endplate margin. There is mild bilateral facet joint osteo arthritis. There is no neural foraminal stenosis. There is no central canal stenosis. L2-L3: The disc is mildly bulging. There is mild bilateral facet joint osteoarthritis. There is mild bilateral neural foraminal stenosis. There is no central canal stenosis. L3-L4: The disc is mildly bulging. There is mild bilateral facet joint osteoarthritis. There is mild bilateral neural foraminal stenosis. There is no central canal stenosis. L4-L5: The disc is bulging. There is mild bilateral facet joint osteoarthritis. There is mild bilater al neural foraminal stenosis. There is mild central canal stenosis. L5-S1: The disc is bulging. There is mild bilateral facet joint osteoarthritis. There is mild bilater al neural foraminal stenosis. There is mild central canal stenosis. IMPRESSION: 1. Mild lumbar spondylosis. Reviewed, dictated and finalized at location A. 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 Mild lumbar spondylosis.
== END ==
PROVIDERS: PCP Family Medicine; Visit Provider Physical Medicine & Rehabilitation Pain Medicine
DX: M47.26 Other spondylosis with radiculopathy, lumbar region (principal); M47.22 Other spondylosis with radiculopathy, cervical region
CPT/HCPCS: 72141; 72148

== ENCOUNTER 2022-03-17 12:06 | Emergency (ER) | payer MEDICARE, MEDICAID, SELFPAY ==
--- NOTE | ~2022-03-17 | CT_ITS ---
EXAMINATION: CT abdomen pelvis w con DATE: 03/17/2022 15:35 INDICATION: Nausea, cramping and vomiting. Emesis. History of Crohn's disease and pancreatitis. TECHNIQUE: Computed tomography (CT) of the abdomen and pelvis was performed with 100 cc Omnipaque 350 intravenous contrast. The dose-length product was 457.33 mGy-cm. Automated exposure control and iter ative reconstruction technique were employed. COMPARISON: Comparison to multiple prior studies sequentially, with oldest reviewed study dated 12/28. FINDINGS: There is bilateral lower lobe atelectasis. Heart size normal. No significant pleural or per icardial effusion. There is a stable 1.3 cm hypodense lesion of the right hepatic lobe with nodular p eripheral enhancement, consistent with hemangioma. Status post cholecystectomy. The spleen, pancreas, adrenal glands and kidneys are unremarkable. Nonobstructive bowel gas pattern. The appendix is not p ositively visualized. There is no pericecal inflammatory change to suggest appendicitis. No evidence for bowel obstruction. No significant vascular abnormality. There is a retroaortic left renal vein. No lymphadenopathy. There is a stable sclerotic lesion of T11, likely benign. IMPRESSION: 1. No acute abdominal abnormality. Reviewed, dictated and finalized at location A. 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
[2022-03-17 12:25] VITALS: BP 120/82; PULSE 72; RESP 18; TEMP 36.7; O2SAT 100
[2022-03-17 12:44] LABS: Basophils Percent Auto 0.3 % (0.2-1.2); Eosinophils Absolute Auto 0.1 K/mm3 (0-0.3); Eosinophils Percent Auto 0.5 % (0-4.4); Hematocrit 39.5 % (37.0-47.0); Hemoglobin 13.8 g/dL (12.0-15.0); Immature Granulocyte Absolute 0.06 K/mm3 (0.00-0.031); Immature Granulocyte Percent A 0.6 % (0-0.5); Lymphocytes Absolute Auto 4.55 K/mm3 (0.9-3.2); Lymphocytes Percent Auto 42.1 % (18.3-44.2); Mean Corpuscular HGB Conc 34.9 g/dl (32-36); Mean Corpuscular Hemoglobin 31.1 pg (26-34); Mean Platelet Volume 8.5 fl (7.4-10.4); Monocytes Absolute Auto 0.8 K/mm3 (0.1-0.6); Monocytes Percent Auto 7.4 % (2.6-8.5); Neutrophils Absolute Auto 5.3 K/mm3 (1.3-6.7); Neutrophils Percent Auto 49.1 % (45.5-73.1); Platelet Count Result 316 k/mm3 (150-375); Red Blood Count 4.44 M/mm3 (4.2-5.4); Red Cell Distribution Width 12.1 % (11.5-14.5); White Blood Count 10.8 K/mm3 (4.5-10.0)
[2022-03-17 12:53] LABS: Alanine Aminotransferase 29 U/L (6-35); Alkaline Phosphatase 67 U/L (38-126); Anion Gap 11 mmol/L (8-16); Aspartate Amino Transferase 30 U/L (14-36); Bilirubin,Total 0.6 mg/dL (0.2-1.3); Blood Urea Nitrogen 9 mg/dL (7-17); Calcium 9.4 mg/dL (8.4-10.2); Carbon Dioxide 27 mmol/L (22-30); Chloride 96 mmol/L (98-107); Estimated CRCL calculation 78 ml/min; Estimated Glomerular Filt Rate > 60; Glucose 84 mg/dL (65-110); Lipase 64 U/L (23-300); Potassium 3.8 mmol/L (3.4-5.0); Sodium 134 mmol/L (137-145)
[2022-03-17 13:06] LABS: Add Urine Microscopic? YES; Appearance Urine Clear (Clear); Bilirubin Urine Negative (Negative); Blood Urine Negative (Negative); Color Urine Yellow (Yellow); Glucose Urine UA Negative (Negative); Ketones Urine Trace mg/dL (Negative); Leukocyte Esterase Ur Trace LEU/UL (Negative); Nitrate Urine Negative (Negative); Protein Urine Negative (Negative); Specific Grav Ur 1.015 (1.001-1.035); Urobilinogen Urine 0.2 mg/dL (<2.0)
[2022-03-17 13:14] LABS: Bacteria Urine Trace /hpf; Mucus Urine Rare /lpf; RBC Urine 0-2 /hpf (0-2); Squamous Epithelial Cell Urine Occasional /hpf (Few)
[2022-03-17 14:58] VITALS: BP 136/88; PULSE 80; RESP 14; O2SAT 98
--- NOTE | 2022-03-17 15:05 | ED.ABDPAIN ---
HPI - Abdominal Pain General Chief Complaint: Abdominal Pain Stated Complaint: abd pain Time Seen by Provider: 03/17/22 14:54 Source: patient Mode of arrival: ambulatory Limitations: no limitations History of Present Illness HPI narrative: Patient is a 51-year-old female who presents ED with report of abdominal pain. Patient reports having pain in her epigastric region since yesterday. She states she had 2 episodes of pain yesterday, lasting approx 1 minute at a time. The pain has been more persistent today. She also reports having nausea and vomiting today. She has [place] at home and tried taking this without relief. She notes a history of pancreatitis in the past. She does not drink alcohol. Denies any diarrhea or constipation, urinary symptoms, fevers. Denies chest pain or difficulty breathing. Related Data Home Medications Medication Instructions Recorded Confirmed hydrocodone 10 mg-acetaminophen 1 tablet PO DIRECTED 09/23/19 05/01/21 325 mg tablet sumatriptan succinate 100 mg tablet 100 mg PO DAILY 09/23/19 05/01/21 trazodone 100 mg tablet 100 mg PO DAILY 09/23/19 05/01/21 lamotrigine 25 mg tablet 25 mg PO DAILY 12/29/20 05/01/21 omeprazole 40 mg capsule,delayed 40 mg PO DAILY 12/29/20 05/01/21 release cariprazine 4.5 mg capsule 4.5 mg PO DAILY 05/01/21 05/01/21 (Vraylar) mesalamine 500 mg capsule,extended 500 mg PO DAILY 05/01/21 05/01/21 release (Pentasa) methylprednisolone 4 mg tablet 4 mg PO DAILY 05/01/21 05/01/21 Allergies Allergy/AdvReac Type Severity Reaction Status Date / Time ciprofloxacin Allergy Unknown Rash Verified 03/17/22 14:55 Sulfa (Sulfonamide Allergy Unknown Anaphylaxis Verified 03/17/22 14:55 Antibiotics) ketorolac AdvReac Intermediate Nausea Verified 03/17/22 14:55 NSAIDS (Non-Steroidal AdvReac Intermediate Nausea Verified 03/17/22 14:55 Anti-Inflamma Review of Systems Review of Systems: CONSTITUTIONAL: Denies fever, chills, or sweats. ENT: Denies rhinorrhea, congestion, sore throat. CARDIOVASCULAR: Denies chest pain. RESPIRATORY: Denies cough or dyspnea. GASTROINTESTINAL: Reports epigastric abdominal pain, nausea, vomiting. Denies constipation, diarrhea. GENITOURINARY: Denies dysuria or hematuria. All systems reviewed & are unremarkable except as noted in HPI and below PMFSH Past Medical History Medical History (Updated 03/17/22 @ 17:41 by Lissette Suggs PA-C) Anemia Anxiety Arthritis Asthma Bronchitis C. difficile diarrhea Colitis COPD (chronic obstructive pulmonary disease) Crohn's disease Depression DJD (degenerative joint disease) Fibroids GERD (gastroesophageal reflux disease) History of angina History of bipolar disorder History of osteoporosis HLD (hyperlipidemia) HPV (human papilloma virus) anogenital infection IBS (irritable bowel syndrome) Migraine Ovarian cancer Pancreatitis Pneumonia Previous known suicide attempt x2 Schizoaffective disorder UTI (urinary tract infection) Surgical History Surgical History H/O right knee surgery H/O Spinal surgery T12 cartilage removed H/O: hysterectomy History of cholecystectomy History of tonsillectomy Family History Family History Sibling Depression Hypertension Family history of elevated blood lipids Father Family history of arthritis Other Family history of anemia Family history of mental disorder Family history of thyroid disease Social History Social History Smoking status: Current every day smoker Gender identity (if verbalized by the patient): Female Exam Narrative: GENERAL: Well appearing, well-nourished, non-toxic, in no acute distress. HEAD: Normocephalic, atraumatic. NECK: Supple. No adenopathy, no masses. RESPIRATORY: Airway patent, respirations nonlabored. Clear to auscult
--- NOTE | 2022-03-17 15:16 | ECG_ITS ---
Measurements Intervals [employer] Rate: 62 P: 63 TN: 164 QRS: 50 QRSD: 91 T: 80 QT: 414 QTc: 421 Interpretive Statements SINUS RHYTHM NONSPECIFIC T-WAVE ABNORMALITY COMPARED TO ECG 12/16/2021 10:20:22 NO SIGNIFICANT CHANGES Electronically Signed On 03-18-2022 10:17:27 PHONE MANAGER by Lucio Jacobs M.D.
[2022-03-17] MEDS: SODIUM CHLORIDE 0.9% IV 1,000 ML 999 ML IV CONT (15:21)
[2022-03-17] MEDS: ONDANSETRON INJ 4 MG/2 ML VIAL IV PUSH ×2 (15:21→17:51)
[2022-03-17] MEDS: MORPHINE SULFATE (*CRX) 4 MG/ML INJ IV PUSH (15:22)
[2022-03-17 15:51] LABS: Influenza A QL RT-PCR Negative (Negative); Influenza B QL RT-PCR Negative (Negative); SARS-CoV-2 RNA PCR Negative
[2022-03-17 16:40] LABS: Troponin I < 0.012 ng/mL (0.000-0.034)
[2022-03-17] MEDS: BELLADONNA ALK/PHENOB ELIX 10 ML, MAG HYDROX/ALUMINUM HYD/SIMETH 30 ML, LIDOCAINE HCL 2... PO (17:50)
[2022-03-17 17:56] VITALS: BP 148/90; PULSE 86; RESP 20; O2SAT 97
== END 2022-03-17 17:57 | disposition home or self-care (01) ==
PROVIDERS: Emergency Medicine; Emergency Provider Physician Assistant; PCP Family Medicine
DX: R10.13 Epigastric pain (principal); Z20.822 Contact with and (suspected) exposure to COVID-19; J44.9 Chronic obstructive pulmonary disease, unspecified; E78.5 Hyperlipidemia, unspecified; K50.90 Crohn's disease, unspecified, without complications; K21.9 Gastro-esophageal reflux disease without esophagitis; M19.90 Unspecified osteoarthritis, unspecified site; M81.0 Age-related osteoporosis without current pathological fracture; F41.9 Anxiety disorder, unspecified; F25.9 Schizoaffective disorder, unspecified; F32.A Depression, unspecified; Z85.43 Personal history of malignant neoplasm of ovary; Z87.01 Personal history of pneumonia (recurrent); Z87.440 Personal history of urinary (tract) infections; Z86.2 Personal history of diseases of the blood and blood-forming organs and certain disorders involving the immune mechanism; Z90.710 Acquired absence of both cervix and uterus; F17.200 Nicotine dependence, unspecified, uncomplicated; R94.31 Abnormal electrocardiogram [ECG] [EKG]
CPT/HCPCS: 36415; 74177; 80053; 81001; 83690; 84484; 85025; 87086; 87636; 93005; 96361; 96374; 96375; 99284; A9270; J2270; J2405; J7030; Q9967

== ENCOUNTER 2024-06-17 12:28 | Emergency (ER) | payer MEDICARE, SELFPAY ==
[2024-06-17 12:47] VITALS: BP 106/73; PULSE 76; RESP 18; TEMP 36.7; O2SAT 100
[2024-06-17 14:30] VITALS: BP 143/86; PULSE 95; RESP 18; TEMP 36.5; O2SAT 100
--- NOTE | 2024-06-17 14:35 | ED.HA ---
HPI - Headache General Chief Complaint: Headache <Carli eVga APRN - Last Filed: 06/17/24 14:58> Stated Complaint: migraine <Carli Vega APRN - Last Filed: 06/17/24 14:58> Time Seen by Provider: 06/17/24 14:20 <Carli Vega APRN - Last Filed: 06/17/24 14:58> Focused HPI: Patient is a 54 year a female presents to the ER with a 14 day history of headache. She reports she has a history migraines. Patient last saw her primary care provider around 10 ago and he treated her for a sinus infection. She reports her pain has not subsided and now her upper jaw hurts. Patient reports she takes sumatriptan at home but is not helped relieve her symptoms. She also endorses a history of COPD. GENERAL: Well-appearing, well-nourished, and in mild distress d/t pain. HEAD: Normocephalic, atraumatic. CHEST: Clear to auscultation. ?No respiratory distress. HEART: Regular rate and rhythm.? NEURO: ?Alert and oriented x3. Patient screened in triage and initial orders placed.? ?Additional care and disposition to be based upon?diagnostic testing and treatment. <Carli Vega APRN - Last Filed: 06/17/24 14:58> History of Present Illness HPI Narrative: Agree with HPI. History of migraine. Reports chronic headaches with photophobia. No improvement with pain meds. <Joe Davis MD - Last Filed: 06/17/24 18:23> Related Data Home Medications: Home Medications ?Medication ?Instructions ?Recorded ?Confirmed ?Last Taken ?Type hydrocodone 10 mg-acetaminophen 1 tablet PO DIRECTED 09/23/19 05/01/21 Unknown History 325 mg tablet sumatriptan succinate 100 mg tablet 100 mg PO DAILY 09/23/19 05/01/21 Unknown History trazodone 100 mg tablet 100 mg PO DAILY 09/23/19 05/01/21 Unknown History lamotrigine 25 mg tablet 25 mg PO DAILY 12/29/20 05/01/21 Unknown History omeprazole 40 mg capsule,delayed 40 mg PO DAILY 12/29/20 05/01/21 Unknown History release cariprazine 4.5 mg capsule 4.5 mg PO DAILY 05/01/21 05/01/21 Unknown History (Vraylar) mesalamine 500 mg capsule,extended 500 mg PO DAILY 05/01/21 05/01/21 Unknown History release (Pentasa) methylprednisolone 4 mg tablet 4 mg PO DAILY 05/01/21 05/01/21 Unknown History <Carli Vega APRN - Last Filed: 06/17/24 14:58> Allergies/Adverse Reactions: Allergies Allergy/AdvReac Type Severity Reaction Status Date / Time ciprofloxacin Allergy Unknown Rash Verified 03/17/22 14:55 Sulfa (Sulfonamide Allergy Unknown Anaphylaxis Verified 03/17/22 14:55 Antibiotics) ketorolac AdvReac Intermediate Nausea Verified 03/17/22 14:55 NSAIDS (Non-Steroidal AdvReac Intermediate Nausea Verified 03/17/22 14:55 Anti-Inflamma <Carli Vega APRN - Last Filed: 06/17/24 14:58> Review of Systems Review of Systems: All systems reviewed & are unremarkable except as noted in HPI and below <Joe Davis MD - Last Filed: 06/17/24 18:23> Constitutional: Constitutional: Reports no additional constitutional complaints <Joe Davis MD - Last Filed: 06/17/24 18:23> Eyes: Eyes: Reports no additional eye complaints <Joe Davis MD - Last Filed: 06/17/24 18:23> Cardiovascular: Cardiovascular: Reports no additional cardiovascular complaints <Joe Davis MD - Last Filed: 06/17/24 18:23> Respiratory: Respiratory: Reports no additional respiratory complaints <Joe Davis MD - Last Filed: 06/17/24 18:23> Gastrointestinal: Gastrointestinal: Reports no additional gastrointestinal complaints <Joe Davis MD - Last Filed: 06/17/24 18:23> Neurologic: Reports system reviewed and no additional complaints, except as documented <Joe Davis MD - Last Filed: 06/17/24 18:23> PMFSH Past Medical History Medical History: Medical History (Updated 06/17/24 @ 18:20 by Joe Davis MD) C. difficile diarrhea Anemia Schizoaffective disorder Previous known suicide attempt x2 Anxiety Depression History of bipolar disorder History of osteoporosis Arthritis UTI (urinary tract infection) Fibroids HPV (human papilloma virus) anogenital infection Ovarian cancer GERD (gastroesophageal reflux disease) IBS (irritable bowel syndrome) Pancreatitis Colitis Crohn's disease Pneumonia Bronchitis Asthma COPD (chronic obstructive pulmonary disease) HLD (hyperlipidemia) History of angina DJD (degenerative joint disease) Migraine <Carli Vega APRN - Last Filed: 06/17/24 14:58> Surgical History Surgical History: Surgical History H/O Spinal surgery T12 cartilage removed H/O right knee surgery H/O: hysterectomy History of cholecystectomy History of tonsillectomy <Carli Vega APRN - Last Filed: 06/17/24 14:58> Family History Family History: Family History Sibling Depression Hypertension Family history of elevated blood lipids Father Family history of arthritis Other Family history of anemia Family history of mental disorder Family history of thyroid disease <Carli Vega APRN - Last Filed: 06/17/24 14:58> Social History Social History: Social History Smoking status: Current every day smoker Gender identity (if verbalized by the patient): Female <Carli Vega APRN - Last Filed: 06/17/24 14:58> Exam Narrative: GENERAL: Fatigue-appearing, well-nourished, and in no acute distress. HEAD: Normocephalic, atraumatic. ENT: Mucous membranes moist. CHEST: Extra wheezing throughout.. No respiratory distress. HEART: Regular rate and rhythm. Normal peripheral pulses. ABDOMEN: Soft, nontender, nondistended. EXTREMITIES: Normal range of motion. No edema. SKIN: Warm, dry, no rash. NEURO: Alert and oriented x3. PSYCH: Normal mood and affect. <Joe Davis MD - Last Filed: 06/17/24 18:23> Course Course Emergency Course: Minimal improvement with migraine cocktail. Lungs improved with nebulizer treatment. Discharge with steroids and albuterol. Recommend follow-up with her neurologist for migraine. <Joe Davis MD - Last Filed: 06/17/24 18:23> Vital Signs Vital signs: Vital Signs Temperature 98.0 F 06/17/24 12:47 Pulse Rate 76 06/17/24 12:47 Respiratory Rate 18 06/17/24 12:47 Blood Pressure 106/73 06/17/24 12:47 Pulse Oximetry 100 06/17/24 12:47 Temperature 97.7 F 06/17/24 14:30 Pulse Rate 67 06/17/24 18:01 Respiratory Rate 20 06/17/24 18:01 Blood Pressure 143/86 H 06/17/24 14:30 Pulse Oximetry 100 06/17/24 14:30 <Carli Vega APRN - Last Filed: 06/17/24 14:58> Vital Signs Temperature 98.0 F 06/17/24 12:47 Pulse Rate 76 06/17/24 12:47 Respiratory Rate 18 06/17/24 12:47 Blood Pressure 106/73 06/17/24 12:47 Pulse Oximetry 100 06/17/24 12:47 Temperature 97.7 F 06/17/24 14:30 Pulse Rate 67 06/17/24 18:01 Respiratory Rate 20 06/17/24 18:01 Blood Pressure 143/86 H 06/17/24 14:30 Pulse Oximetry 100 06/17/24 14:30 <Joe Davis MD - Last Filed: 06/17/24 18:23> MDM - Headache Imaging Data Radiologist's impression: ITS Impressions Head CT 06/17/24 14:43 IMPRESSION: No acute intracranial findings. <Joe Davis MD - Last Filed: 06/17/24 18:23> Discharge Plan Discharge Clinical Impression: Headache, COPD (chronic obstructive pulmonary disease) <Carli Vega APRN - Last Filed: 06/17/24 14:58> Patient Disposition: Home, Self-Care <Carli Vega APRN - Last Filed: 06/17/24 14:58> Condition: Stable <Carli Vega APRN - Last Filed: 06/17/24 14:58> Instructions: COPD (Chronic Obstructive Pulmonary Disease) (ED), General Headache (ED) <Carli Vega APRN - Last Filed: 06/17/24 14:58> Additional Instructions: Try to stay well hydrated at home. Please return to the emergency department if you develop worsening of your headache or a new headache which is severe, associated with vision changes, associated with neck stiffness or fever, or if it is different from any other headache that you have had before. Return to the emergency department if you develop numbness, weakness or tingling or problems with coordination, or if you develop severe nausea and vomiting and are unable to keep down fluids at home. <Carli Vega APRN - Last Filed: 06/17/24 14:58> Patient Language: Swazi <Carli Vega APRN - Last Filed: 06/17/24 14:58> Prescriptions: New prednisone 50 mg tablet 50 mg PO DAILY Qty: 7 0RF albuterol sulfate 90 mcg/actuation HFA aerosol inhaler 4 puff inhalation QID PRN (Reason: shortness of breath or wheezing) Qty: 8.5 0RF No Action sumatriptan succinate 100 mg tablet 100 mg PO DAILY hydrocodone-acetaminophen 10-325 mg tablet 1 tablet PO DIRECTED trazodone 100 mg tablet 100 mg PO DAILY methylprednisolone 4 mg tablet 4 mg PO DAILY Pentasa 500 mg capsule, extended release 500 mg PO DAILY Vraylar 4.5 mg capsule 4.5 mg PO DAILY prednisone 20 mg tablet 40 mg PO DAILY 5 Days Qty: 10 0RF doxycycline monohydrate 100 mg tablet 100 mg PO BID 7 Days Qty: 14 0RF famotidine [Pepcid] 20 mg tablet 20 mg PO BID Qty: 10 0RF ondansetron 4 mg tablet,disintegrating 4 mg PO Q8H PRN (Reason: nausea and vomiting) Qty: 20 0RF ondansetron 4 mg tablet,disintegrating 4 mg PO Q6-8H PRN (Reason: nausea and vomiting) Qty: 14 0RF omeprazole 40 mg capsule,delayed release(DR/EC) 40 mg PO DAILY lamotrigine 25 mg tablet 25 mg PO DAILY azithromycin 250 mg tablet See Rx Instructions .ROUTE .COMPLEX Qty: 6 0RF Rx Instructions: take 500 mg today (day 1), then 250 mg for 4 days (days 2-5) prednisone 20 mg tablet 60 mg PO DAILY 5 Days Qty: 15 0RF acetaminophen 500 mg capsule 500 mg PO Q6H PRN (Reason: fever or pain) Qty: 30 0RF albuterol sulfate 90 mcg/actuation aero powdr breath act w/sensor 1 inhalation INHALATION Q4-6H PRN (Reason: shortness of breath or wheezing) Qty: 1 0RF <Carli Vega APRN - Last Filed: 06/17/24 14:58> Follow-up/Referrals: Dougie,Santo Dickerson MD [Primary Care Provider] - 1 Week <Carli Vega APRN - Last Filed: 06/17/24 14:58>
[2024-06-17] MEDS: diphenhydrAMINE HCl INJ 50 MG/ML VIAL 25 MG IV PUSH (16:58)
[2024-06-17] MEDS: SODIUM CHLORIDE 0.9% IV 1,000 ML 999 ML IV CONT (16:58)
[2024-06-17] MEDS: KETOROLAC 30 MG/ML VIAL (*BKC) IV PUSH (16:58)
[2024-06-17] MEDS: METOCLOPRAMIDE HCL INJ 10 MG/2 ML VIAL IV PUSH (16:58)
[2024-06-17 17:50] VITALS: PULSE 66; RESP 20
[2024-06-17] MEDS: IPRATROPIUM 0.5 MG/ALBUTEROL SULFATE 2.5 MG AMPUL.NEB 3 ML INHALATION (17:50)
[2024-06-17 18:01] VITALS: PULSE 67; RESP 20
[2024-06-17 18:32] VITALS: BP 110/83; PULSE 66; RESP 18
== END 2024-06-17 18:34 | disposition home or self-care (01) ==
PROVIDERS: Emergency Provider Emergency Medicine; PCP Family Medicine
DX: R51.9 Headache, unspecified (principal); J44.9 Chronic obstructive pulmonary disease, unspecified; F25.9 Schizoaffective disorder, unspecified; F41.8 Other specified anxiety disorders; Z85.43 Personal history of malignant neoplasm of ovary; K21.9 Gastro-esophageal reflux disease without esophagitis; J45.909 Unspecified asthma, uncomplicated; K50.90 Crohn's disease, unspecified, without complications; E78.5 Hyperlipidemia, unspecified; F17.200 Nicotine dependence, unspecified, uncomplicated
CPT/HCPCS: 70450; 94640; 96361; 96374; 96375; 99284; J1200; J1885; J2765; J7030

== ENCOUNTER 2024-10-10 16:04 | Emergency (ER) | payer MEDICARE, MEDICAID, SELFPAY ==
--- NOTE | ~2024-10-10 | XR_ITS ---
EXAMINATION: XR foot RT min 3V DATE: 10/10/2024 16:53 INDICATION: Stabbing injury to the right third-fifth toes TECHNIQUE: Dorsoplantar, two oblique and lateral views of the right foot were obtained. COMPARISON: None. FINDINGS: Nondisplaced oblique fracture across the proximal metadiaphyseal region of the fifth proximal phalanx which remains in near anatomic alignment. No other fractures identified. Minimal to mild polyarticul ar osteoarthritis in the right foot. Couple tiny enthesopathic ossicles at the calcaneal insertion of the distal Achilles tendon. Mild soft tissue swelling about the base of the fifth toe. IMPRESSION: 1. Nondisplaced extra articular fracture at the right fifth proximal phalanx. Reviewed, dictated and finalized at location A.
[2024-10-10 16:16] VITALS: BP 91/56; PULSE 54; RESP 20; TEMP 37; O2SAT 100
--- NOTE | 2024-10-10 17:31 | ED_ITS ---
HPI - Extremity Injury (Lower) General Chief Complaint: Extremity Injury, Lower Stated Complaint: Right Foot Toe Pain Source: patient Mode of arrival: ambulatory Limitations: no limitations History of Present Illness HPI Narrative: 54-year-old female presented for complaint of pain, bruising and swelling to the right foot Following an injury last night. States she struck the little toe on a couch and it 'went to the side.' Since then she has applied ice and took several hydrocodone without much improvement. Rates pain 01/24. Related Data Home Medications ?Medication ?Instructions ?Recorded ?Confirmed ?Last Taken ?Type hydrocodone 10 mg-acetaminophen 1 tablet PO DIRECTED 09/23/19 05/01/21 Unknown History 325 mg tablet lamotrigine 25 mg tablet 25 mg PO DAILY 12/29/20 05/01/21 Unknown History omeprazole 40 mg capsule,delayed 40 mg PO DAILY 12/29/20 05/01/21 Unknown History release cariprazine 4.5 mg capsule 4.5 mg PO DAILY 05/01/21 05/01/21 Unknown History (Vraylar) albuterol 90 mcg-budesonide 80 2 inh inhalation DAILY PRN 10/10/24 Unknown History mcg/actuation HFA aerosol inhaler shortness of breath hydroxyzine HCl 50 mg tablet mg 10/10/24 Unknown History mirtazapine 7.5 mg tablet mg 10/10/24 Unknown History Allergies Allergy/AdvReac Type Severity Reaction Status Date / Time ciprofloxacin Allergy Unknown Rash Verified 10/10/24 16:28 Sulfa (Sulfonamide Allergy Unknown Anaphylaxis Verified 10/10/24 16:28 Antibiotics) ketorolac AdvReac Intermediate Nausea Verified 10/10/24 16:28 NSAIDS (Non-Steroidal AdvReac Intermediate Nausea Verified 10/10/24 16:28 Anti-Inflamma Review of Systems Review of Systems: CONSTITUTIONAL: Denies body aches, fever, chills EYES: Denies visual changes ENT: Denies rhinorrhea, congestion CARDIOVASCULAR: Denies chest pain, palpitations, or edema. RESPIRATORY: Denies cough or dyspnea. SKIN: Denies rash or wounds. MUSCULOSKELETAL: reports right foot pain. NEUROLOGIC: Denies headache, numbness, tingling, or weakness. All systems reviewed & are unremarkable except as noted in HPI and below PMFSH Past Medical History Medical History (Updated 10/10/24 @ 17:38 by Maryellen Townsend APRN) C. difficile diarrhea Anemia Schizoaffective disorder Previous known suicide attempt x2 Anxiety Depression History of bipolar disorder History of osteoporosis Arthritis UTI (urinary tract infection) Fibroids HPV (human papilloma virus) anogenital infection Ovarian cancer GERD (gastroesophageal reflux disease) IBS (irritable bowel syndrome) Pancreatitis Colitis Crohn's disease Pneumonia Bronchitis Asthma COPD (chronic obstructive pulmonary disease) HLD (hyperlipidemia) History of angina DJD (degenerative joint disease) Migraine Surgical History Surgical History H/O Spinal surgery T12 cartilage removed H/O right knee surgery H/O: hysterectomy History of cholecystectomy History of tonsillectomy Family History Family History Sibling Depression Hypertension Family history of elevated blood lipids Father Family history of arthritis Other Family history of anemia Family history of mental disorder Family history of thyroid disease Social History Social History Smoking status: Current every day smoker Gender identity (if verbalized by the patient): Female Comments At time of signature, I have reviewed and agree with nursing past medical, surgical, social and family history unless otherwise noted. Please see nursing chart for further information. There is no relevant family history pertinent to the presenting complaint Exam Narrative: GENERAL: Well-appearing CHEST: Speaks in full sentences. No respiratory distress. HEART: Regular rate and rhythm. Normal and equal peripheral pulses. EXTREMITIES: right foot with ecchymosis noted around the 5th digit extending to the 4th and 3rd MTPs. Mild swelling. Tender with light palpation, decreased ROM due to pain. Foot has normal strength and sensation, No open wounds. alignment normal, pulse palpable and equal bilaterally, skin warm, dry, pink. Capillary refill less than 3 seconds. SKIN: Warm, dry. Scattered abrasions over body surface. NEURO: Alert and oriented x3. PSYCH: Normal mood and affect Course Course Emergency Course: Patient is aware of diagnosis, understands and agrees to treatment plan. Anticipatory guidance given. Patient agrees to follow-up as directed and is aware of reasons to seek care at the emergency department. Portions of this record may have been created with voice recognition software Level of Care: Express Care Visit Vital Signs Vital signs: Vital Signs Temperature 98.6 F 10/10/24 16:16 Pulse Rate 54 L 10/10/24 16:16 Respiratory Rate 20 10/10/24 16:16 Blood Pressure 91/56 L 10/10/24 16:16 Pulse Oximetry 100 10/10/24 16:16 Oxygen Delivery Room Air 10/10/24 16:16 Temperature 98.6 F 10/10/24 16:16 Pulse Rate 54 L 10/10/24 16:16 Respiratory Rate 20 10/10/24 16:16 Blood Pressure 91/56 L 10/10/24 16:16 Pulse Oximetry 100 10/10/24 16:16 Oxygen Delivery Room Air 10/10/24 16:16 Reviewed Procedures Orthopedic Splinting/Casting right foot: Lower Extremity Immobilizer: post-op shoe MDM - Extremity Injury (Lower) MDM Narrative Medical decision making narrative: results of x-ray reviewed with patient. Postop shoe applied. Chilo wrap applied. Discussed physical exam findings. Advised supportive measures and signs/symptoms to go to the ER. Pt is appropriate for outpt treatment and f/u. Differential Diagnosis Differential diagnosis: Likely fracture of toe and other ( Foot fracture, contusion, sprain) Discharge Plan Discharge Clinical Impression: Fracture of toe of right foot Patient Disposition: Home Condition: Stable Instructions: Toe Fracture (ED) Additional Instructions: Rest, avoid excessive walking, standing, running or jumping ice and elevate the right foot as often as possible Motrin 600mg every 8 hours, as needed, for pain (take with food). Tylenol 1000mg every 8 hours. Keep postop shoe in place while walking Go to the ER immediately for increased pain, tingling/numbness, swelling, redness, etc Follow up with Orthopedic Surgery in 1-2 days for further evaluation - please call today for an appointment. Patient Language: Azerbaijani Prescriptions: No Action hydrocodone-acetaminophen 10-325 mg tablet 1 tablet PO DIRECTED Vraylar 4.5 mg capsule 4.5 mg PO DAILY hydroxyzine HCl 50 mg tablet mirtazapine 7.5 mg tablet albuterol-budesonide 90-80 mcg/actuation HFA aerosol inhaler 2 inh inhalation DAILY PRN (Reason: shortness of breath) famotidine [Pepcid] 20 mg tablet 20 mg PO BID Qty: 10 0RF omeprazole 40 mg capsule,delayed release(DR/EC) 40 mg PO DAILY lamotrigine 25 mg tablet 25 mg PO DAILY Follow-up/Referrals: Dougie,Santo Dickerson MD [Primary Care Provider] - Rodney Maria MD [Physician] - Stand Alone Forms: Work/School Release IP Time of Disposition: 17:38
== END 2024-10-10 17:48 | disposition home or self-care (01) ==
PROVIDERS: Emergency Provider Nurse Practitioner Family; PCP Family Medicine
DX: S92.514A Nondisplaced fracture of proximal phalanx of right lesser toe(s), initial encounter for closed fracture (principal); W22.03XA Walked into furniture, initial encounter; K50.90 Crohn's disease, unspecified, without complications; J44.9 Chronic obstructive pulmonary disease, unspecified; E78.5 Hyperlipidemia, unspecified; I20.9 Angina pectoris, unspecified; M81.0 Age-related osteoporosis without current pathological fracture; M19.90 Unspecified osteoarthritis, unspecified site; K21.9 Gastro-esophageal reflux disease without esophagitis; F31.9 Bipolar disorder, unspecified; F25.9 Schizoaffective disorder, unspecified; Z85.43 Personal history of malignant neoplasm of ovary
CPT/HCPCS: 73630; 99214; G0463

== ENCOUNTER 2024-10-22 11:44 | Emergency (ER) | payer MEDICARE, MEDICAID, SELFPAY ==
[2024-10-22] VITALS (20 sets, daily range): BP systolic 95–127; BP diastolic 64–91; PULSE 64–81; RESP 14–16; TEMP 36.7–36.8; O2SAT 94–100
--- NOTE | ~2024-10-22 | CT_ITS ---
CT of the Abdomen and Pelvis: Indication: Crohn's disease, nausea and vomiting Technique: 2.5 mm axial scans were obtained through the abdomen and pelvis following intravenous adm inistration of 100 cc of Omnipaque 350. Dose reduction technique was used on this scan by utilizing a utomated exposure control and iterative reconstruction technique. The dose-length product (DLP) was 1 83.43 mGy-cm. COMPARISON: 03/17/2022 Findings: Scans through the lung bases are unremarkable. Stable hypodense hepatic mass, likely hemangioma. Cholecystectomy clips are present. The spleen, panc reas, adrenals and kidneys are within normal limits. There are atherosclerotic calcifications of the aorta. No lymphadenopathy. No bowel obstruction or bowel wall thickening. There is no evidence to suggest acute appendicitis. Images through the pelvis were performed. Urinary bladder unremarkable. No pelvic mass seen. No ascit es. Impression: No definite acute abnormality seen. Stable probable hepatic hemangioma. Reviewed, dictated and finalized at [facility]. Impression: No definite acute abnormality seen. Stable probable hepatic hemangioma.
--- OUTSIDE RECORDS SUMMARY | 2024-10-22 11:47 | XMS_ITS | Encounter Summary ---
Author Organization [facility] Healthcare Address [address] [place] [id number] Care Team Providers Care Bag Patcher Name Role Phone Colton Dugan MD Primary Care Provider [phone] Reason for Visit * Reason Onset Date Comments Updated pharmacy 06/28/2019 Encounter Details Date Type Department Care Team (Late st Contact Info) Description 06/28/2019 Telephone [facility] [address] [place] [address] Marilyn Schwartz MD [address] [place] [address] Updated pharmacy Social History Tobacco Use Types Packs/Day Years Used Date Smoking Tobacco: Former Cigarettes 0.5 30.2 1 989 - 06/2018 Smokeless Tobacco: Never Alcohol Use Standard Drinks/Week Comments Yes 0 (1 standard drink = 0.6 oz pur e alcohol) rarely--1-2x year AUDIT-C Answer Date Recorded Frequency of Alcohol Consumption Never 11/27/2018 Average Number of Drinks Not on file 019 Frequency of Binge Drinking Not on file 11/15 Comments No Sex and Gender Information Value Date Recorded Sex Assigned at Not on file Legal Sex Female 5:21 PM [employer] Gender Identity Female 05/03/2021 9:56 AM M[employer] SE[employer] Sexual Orientation Not on file Occupation Industry Job Start Date Job End Date disabled Not on file Not on file Not on file documented as of this encounter Plan of Treatment Not on file documented as of this encounter Goals Goal Patient Goal Type Associated Problems Recent Progress Patient-Stated? Author CCM Chronic Pain Care Plan Chronic Care Management No Gricel Ivory RN Note: Problem: Chronic Pain Goals: 1. Minimize further functional decline 2. Maximize quality of life 3. Control pain Strategies: - Activity/exercise program recommendation - Conservative stepwise pain medicine strategy with multi-disciplinary approach - Recommend healthy lifestyle strategies and compensatory methods as needed Reduce the likelihood of falling Lifestyle No Gricel Ivory, RN Note: Below are four things you can do to prevent falls: 1. Begin an exercise program to improve your leg strength & balance 2. Ask your doctor or pharmacist to review your medicines 3. Get annual eye check-ups & update your eyeglasses 4. Make your home safer by: Removing clutter & tripping hazards Putting railings on all stairs & adding grab bars in the bathroom Having good lighting, especially on stairs Contact your local community or [facility] for information on exercise, fall prevention programs, or options for improving home safety. documented as of this encounter Visit Diagnoses Not on filedocumented in this encounter Additional Health Concerns Infection Onset Date Last Indicated Resolved Time C. difficile 08/14/2018 08/13/2018 documented as of this encounter Care Teams Bag Patcher Relationship Specialty Start Date End Date Colton Dugan MD PCP - General Family Medicine 04/02/18 documented as of this encounter
--- OUTSIDE RECORDS SUMMARY | 2024-10-22 11:47 | XMS_ITS | Clinical Summary ---
Author Organization [facility] Address [address] [place] [address] Care Team Providers Care Dental Therapist Name Role Phone Kodak Dillard MD Unavailable [phone] Maxwell Barrera DO Primary Care Provider Source Comments [facility],non-owned Affiliates and Associated Physician Practices is amultiple site organization consisting of ambulatory clinics and hospital sitesin [place], [place], [place] and [place]. This disclosure is being madepursuant to the Care Everywhere program and may not contain all information available regarding this patient. Last updated 18.[facility] Allergies Active Allergy Reactions Criticality Noted Date Comments Ciprofloxacin Rash Medium 08/26/2015 States has had orally and tolerated fine Nsaids Low 01/20/2013 esophagitis Sulfa Drugs Swelling High 09/21/2012 Ketorolac Urticaria 04/05/2015 Medications * This document contains information received from the source organization and may not represent a complete record from that organization. * Be aware that medications may not be up to date on this document. Alwaysverify current medications with the patient. gabapentin (NEURONTIN) 600 MG tablet Take 1 Tab by mouth 3 times daily 90 Tab 0 6 Active omeprazole (PRILOSEC) 40 MG capsule TAKE ONE CAPSULE BY MOUTH ONCE DAILY BEFORE BREAKFAST 30 Cap 2 6 Active acetaminophen (TYLENOL) 325 MG tablet Take 2 Tabs by mouth every 4 hours as needed Maximum allowable Acetaminophen amount = 4 Grams (4000 mg) / 24 hours. 6 Active colestipol (COLESTID) 1 GM tabletIndicati ons:Diarrhea Take 1 Tab by mouth 2 times daily Reasons: Diarrhea 30 Tab 6 Active dicyclomine (BENTYL) 20 MG tablet Take by mouth 2 times daily 60 Tab 6 Active rosuvastatin (CRESTOR) 40 MG tablet Take 1 Tab by mouth at bedtime 30 Tab 3 7 Active albuterol HFA (PROVENTIL;SARTHAK TOLIN;PROAIR) 108 (90 BASE) MCG/ACT inhaler Inhale 2 Puffs by mouth every 6 hours as needed Reported on 05/05/2016 1 Inhaler 7 Active lamoTRIgine (LAMICTAL) 100 MG tablet TAKE ONE TABLET BY MOUTH AT BEDTIME 30 Tab 7 Active traZODone (DESYREL) 100 MG tablet TAKE ONE TABLET BY MOUTH ONCE DAILY AT BEDTIME 30 Tab 7 Active venlafaxine XR 24hr (EFFEXOR XR) 75 MG capsule TAKE ONE CAPSULE BY MOUTH ONCE DAILY WITH BREAKFAST 30 Cap 7 Active mesalamine SR 24hr (APRISO) 0.375 GM capsule Take 6 g by mouth every morning Active oxyCODONE-acet aminophen (PERCOCET) 10-325 MG tablet Take 1 Tab by mouth every 4 hours as needed for Pain Active nicotine (NICODERM CQ) 14 MG/24HR patch APPLY ONE PATCH TOPICALLY ONCE DAILY 28 Patch 7 Active SUMAtriptan (IMITREX) 50 MG tablet TAKE ONE TABLET BY MOUTH ONCE DAILY NEEDED FOR MIGRAINE 9 Tab 7 Active acetaminophen- codeine (TYLENOL #4) 300-60 MG tablet Take 1 tablet by mouth every 4 hours as needed for Pain Active ondansetron, disintegrating , (ZOFRAN ODT) 4 MG tablet Take 1 tablet by mouth every 6 hours as needed for Nausea/Vomiting Allow tablet to dissolve on the tongue 20 tablet 7 Active docusate sodium (COLACE) 100 MG capsule Take 1 capsule by mouth once daily 20 capsule 7 Active Active Problems Problem Noted Date Diagnosed Date Bipolar 1 disorder, manic, moderate 05/27/2015 DDD (degenerative disc disease), lumbar 05/08/19 16 Crohn's disease of large intestine with complica tion 05/08/2015 Anemia 04/07/2015 Smoker Overview (04/26/2015): Current Resolved Problems Problem Noted Date Diagnosed Date Resolved Date Schizoaffective disorder, bipolar type 05/27/2015 05/27/2015 Bipolar depression 05/08/2015 6 Abdominal pain 04/07/2015 05/05/2016 Infectious colitis 04/05/2015 7 Bipolar II disorder 06/19/2013 10/28/19 14 Appendicitis 04/02/2013 05/05/2016 Crohn's colitis with exacerberation 01/21/2013 05/05/2016 Smoker 05/05/2016 Overview (04/26/2015): Current Immunizations Immunization Administration Dates Next Due INFLUENZA VACCINE 01/15/2015,01/15/2013 INFLUENZA VACCINE, QUADR. (F LUZONE; FLULAVAL; FLUARIX; AFLURIA QUADRIVALENT; 6MO+), 0.5 ML (IIV4) 02/12/2016 PNEUMOCOCCAL PPSV23 12/16/2010 Family History Medical History Relation Name Comments Arthritis - Rheumatoid Father Drug Abuse Father Cancer Maternal Grandfather Arthritis - Osteo Maternal Grandmother Depression Maternal Grandmother Heart Failure Maternal Grandmother Hypertension Maternal Grandmother Depression Mother Migraine Mother Thyroid Disease Mother Cancer Paternal Grandfather Cancer Paternal Grandmother Relation Name Status Comments Father Alive Maternal Grandfather Maternal Grandmother Mother Alive Paternal Grandfather Paternal Grandmother Social History Tobacco Use Types Packs/Day Years Used Date Smoking Tobacco: Former Cigarettes 0.3 21.7 0 10/27/1993 - 06/29/2015 Smokeless Tobacco: Never Tobacco Cessation:Ready to Q uit: Yes; Counseling Given: Yes Comments:down to smoking 5-6 cigs per day Alcohol Use Standard Drinks/Week Comments No 0 (1 standard drink = 0.6 oz pur e alcohol) Comments No Sex and Gender Information Value Date Recorded Sex Assigned at Not on file Legal Sex Female 9:19 AM NEUROBIOLOGIST Gender Identity Not on file Sexual Orientation Not on file Last Filed Vital Signs Vital Sign Reading Time Taken Comments Blood Pressure 115/75 03/10/2017 3:51 PM NEUROBIOLOGIST Pulse 66 03/10/2017 3:51 PM NEUROBIOLOGIST Temperature 36.9 C (98.5 F) 03/10/2017 1:51 PM NEUROBIOLOGIST Respiratory Rate 16 03/10/2017 3:51 PM NEUROBIOLOGIST Oxygen Saturation 100% 03/10/2017 3:51 PM NEUROBIOLOGIST Inhaled Oxygen Concentration 21% 02/12/2016 5 :07 AM CDT Weight 59 kg (130 lb) 03/10/2017 1:51 PM NEUROBIOLOGIST Height 171.5 cm (5' 7.5) 03/10/2017 1:51 PM NEUROBIOLOGIST Body Mass Index 20.06 03/10/2017 1:51 PM NEUROBIOLOGIST Plan of Treatment Health Maintenance Due Date Last Done Comments COLOGUARD (AGES 45-75) - COL ON CA SCREENING 1971 COLON MONITORING 1971 COLONOSCOPY - COLON CA SCREENING 1971 CT COLONOGRAPHY - COLON CA SCREENING 1971 FLEX SIG - COLON CA SCREENING 1971 MAMMOGRAM 1971 HIV SCREENING 06/15/1986 HEPATITIS C SCREENING 06/11/1989 DTAP/TDAP/TD VACCINES (1 - Tdap) 06/15/1990 HEPATITIS B VACCINE (1 of 3 - 19+ 3-dose series) 06/15/1990 Colorectal Cancer Screening 02/09/2017 FIT - COLON CA SCREENING 02/09/2017 02/10/2016 PNEUMOCOCCAL VACCINE 50+ (2 of 2 - PCV) 06/15/2021 12/16/2010 ZOSTER VACCINE (1 of 2) 06/15/2021 COVID-19 VACCINE (1 - 2023-2 5 season) 2023 INFLUENZA VACCINE (Season Ended) 2024 02/12/2016, 01/15/2015, 01/15/2013 HIB VACCINE Aged Out No longer eligi ble based on patient's age to complete this topic HPV VACCINE Aged Out No longer eligi ble based on patient's age to complete this topic MENINGOCOCCAL (Group B) VACCINE SHARED DECISION-MAKING Aged Out No longer eligible based on patient's age to complete this topic MENINGOCOCCAL GROUPS A/C/Y/W VACCINE Aged Out No longer eligible b ased on patient's age to complete this topic Procedures Procedure Name Priority Date/Time Associated Diagnosis Comments OCCULT BLOOD FECES IMMUNOASSAY STAT 02/10/2016 6:53 PM CDT from Last 3 Months or Most Recently Relevant to Health Maintenance Results * OCCULT BLOOD FECES IMMUNOASSAY (02/10/2016 6:53 PM CDT) Occult Blood Immunoassay Negative Negative 02/10/2016 7:22 PM CDT [facility] Stool STOOL SPECIMEN / Unknown 02/10/2016 6:53 PM CDT 02/10/2016 7:06 PM CDT Sarah Isbell WIRE FRAME LAMP SHADE MAKER-PARTS DEPARTMENT MANAGER LAB - MICROBIOLOGY ORD ERABLES Final Result Performing Organization Address City/State/[facility] Co de Phone Number [facility] [address] from Last 3 Months or Most Recently Relevant to Health Maintenance Insurance MEDICARE MEDICAID - OUT OF STATE MEDICARE MEDICAID - [place] MED[place] LIMITED BENEFIT - [place] MED[place] Advance Directives * Full Code (Latest Code Status on File) Date Activated Date Inactivated Comments 03/17/2016 3:50 PM 03/18/2016 1:30 PM * Full Code Date Activated Date Inactivated Comments 02/11/2016 3:35 PM 02/13/2016 10:58 AM * Full Code Date Activated Date Inactivated Comments 10/04/2015 7:38 AM 10/04/2015 1:00 PM * Full Code Date Activated Date Inactivated Comments 07/08/2015 4:21 PM 07/10/2015 3:14 PM * Full Code Date Activated Date Inactivated Comments 04/26/2015 11:24 PM 04/28/2015 5:23 PM Care Teams Dental Therapist Relationship Specialty Start Date End Date Maxwell Barrera DO [address] [place] [address] [id number] PCP - General 10/16/18 Kodak Dillard MD [address] [place] [id number] Pain Management Physical Medicine and Rehabilitation 07/03/15
--- OUTSIDE RECORDS SUMMARY | 2024-10-22 11:47 | XMS_ITS | Encounter Summary ---
Author Organization [facility] Address [address] [place] [address] Phone Care Team Providers Care Car Unloader Helper Name Role Phone Unknown, Notinfile Primary Care Provider Unavail able Colton Dugan MD Primary Care Provider [phone] Encounter Details Date Type Department Care Team (Late st Contact Info) Description 02/20/2018 Orders Only [facility] Orthopaedic Surgery [address] 2[address] [place] [id number] Ian Seals, DAVE [address] [place], [place] [id number] Social History Tobacco Use Types Packs/Day Years Used Date Smoking Tobacco: Every Day Comments No Sex and Gender Information Value Date Recorded Sex Assigned at Not on file Legal Sex Female 5:21 PM CENTRAL PROCESSING TECH Gender Identity Female 05/03/2021 9:56 AM CENTRAL PROCESSING TECH Sexual Orientation Not on file documented as of this encounter Plan of Treatment Not on file documented as of this encounter Visit Diagnoses Not on filedocumented in this encounter Additional Health Concerns Infection Onset Date Last Indicated Resolved Time C. difficile 08/14/2018 08/13/2018 documented as of this encounter Care Teams Car Unloader Helper Relationship Specialty Start Date End Date Unknown, Yojana PCP - General 12/19/17 04/01/18 Colton Dugan MD PCP - General Family Medicine 04/02/18 documented as of this encounter
--- OUTSIDE RECORDS SUMMARY | 2024-10-22 11:47 | XMS_ITS | Clinical Summary ---
Author Organization [facility] Address [address], [facility] [address] [place] [address] Phone Care Team Providers Care Reserves Clerk Name Role Phone Colton Dugan MD Primary Care Provider [phone] Allergies Active Allergy Reactions Criticality Noted Date Comments Ciprofloxacin Swelling 10/02/2018 IV only, swelling, redness and itching at IV site Nsaids Other (see Comments) 10/22/2018 crohns Sulfa Antibiotics Anaphylaxis,Swelling High 10/03/19 19 Medications SUMAtriptan (IMITREX) 50 MG Tablet Take 50 mg by mouth as needed. Use as directed. May repeat dose in 2 hours if headache recurs. 50mg - 100mg Active BUPROPION HCL PO Take 150 mg by mouth 2 times daily. Active diphenhydrAMINE- APAP, sleep, (TYLENOL PM EXTRA STRENGTH PO) Take by mouth as needed. Active traZODone (DESYREL) 50 MG Tablet Take 50 mg by mouth nightly. Active cyclobenzaprine (FLEXERIL) 5 MG Tablet Take 5 mg by mouth 3 times daily. Active budesonide-formo terol fumarate (SYMBICORT) 160-4.5 MCG/ACT Aerosol take 2 Puffs by inhalation 2 times daily. Active IBUPROFEN PO Take 600 mg by mouth nightly as needed. Active ondansetron (ZOFRAN) 4 MG Tablet Take 1 Tab by mouth every 8 hours as needed for Nausea - 1st line. 10 Tab 0 Active dicyclomine (BENTYL) 20 MG Tablet Take 1 Tab by mouth every 6 hours. 30 Tab 0 Active Additional Information Patient taking differently:20 mg OralEVERY 6 HOURS PRN, Reported on 05/10/2019 omeprazole (PriLOSEC) 40 MG CAPSULE DELAYED RELEASEIndicatio ns:Gastroesophag eal reflux disease without esophagitis Take 1 Cap by mouth daily. 30 Cap 6 0 Active famotidine (PEPCID) 20 MG Tablet TAKE 2 TABLETS BY MOUTH EVERY EVENING 180 Tablet 3 1 Active Active Problems Problem Noted Date Diagnosed Date Crohn's disease of small intestine without compl ication 05/09/2019 Family History Medical History Relation Name Comments Rheumatoid Arthritis Father Stroke Father Heart Disease Maternal Grandfather Depression Mother Cancer Paternal Aunt 1 ovarian Lupus Paternal Aunt 1 Cancer Paternal Aunt 2 breast Relation Name Status Comments Father Alive Maternal Grandfather Mother Alive Paternal Aunt 1 Paternal Aunt 2 Social History Tobacco Use Types Packs/Day Years Used Date Smoking Tobacco: Former Cigarettes 0.5 25 0 11/22/1993 - 11/22/2018 Smokeless Tobacco: Never Alcohol Use Standard Drinks/Week Comments Yes 0 (1 standard drink = 0.6 oz pur e alcohol) once a year AUDIT-C Answer Date Recorded Frequency of Alcohol Consumption Never 10/02/2018 Average Number of Drinks Not on file 019 Frequency of Binge Drinking Not on file 09/15 Comments No Sex and Gender Information Value Date Recorded Sex Assigned at Not on file Legal Sex Female 8:20 AM CDT Gender Identity Not on file Sexual Orientation Not on file Occupation Industry Job Start Date Job End Date disabled Not on file Not on file Not on file Last Filed Vital Signs Vital Sign Reading Time Taken Comments Blood Pressure 110/82 07/03/2019 10:04 AM CDT Pulse 80 07/03/2019 10:04 AM CDT Temperature 36 C (96.8 F) 07/03/2019 10:04 AM CDT Respiratory Rate 16 07/03/2019 10:04 AM CDT Oxygen Saturation 99% 07/03/2019 10:04 AM CDT Inhaled Oxygen Concentration - - Weight 72.6 kg (160 lb) 06/10/2019 7:00 AM ADVISORY SOFTWARE ENGINEER Height 167.6 cm (5' 6) 06/10/2019 7:00 AM ADVISORY SOFTWARE ENGINEER Body Mass Index 25.82 06/10/2019 7:00 AM ADVISORY SOFTWARE ENGINEER Plan of Treatment Health Maintenance Due Date Last Done Comments Hepatitis C Virus (HCV) Screening 1971 TdaP Immunization 1971 Hepatitis B Immunization (1 of 3 - 19+ 3-dose series) 06/15/1990 Cologuard 06/15/2016 Immunochemical Fecal Occult Blood 06/15/2016 Pneumococcal Immunization (5 0+ years) (2 of 2 - PCV) 06/15/2021 02/23/2015, 12/16/2010 Zoster Immunization (1 of 2) 06/15/2021 SARS-COV-2 Immunization ( - season) 2023 03/09/2021, 07/07/2020, 2020 Colonoscopy 05/31/2024 05/31/2019, 10/25/2018, 05/25/2012 Colorectal Cancer Screening 05/31/2024 Influenza Immunization (Seas on Ended) 2024 02/12/2016, 01/15/2015, 01/14/2013 Respiratory Syncytial Virus (RSV) Immunization (Adult) (1 - 1-dose 75+ series) 06/15/2046 Pneumococcal Immunization Combined Discontinued 02/23/2015, 12/16/2010 Human Papillomavirus (HPV) Immunization Aged Out No longer eligible based on patient's age to complete this topic Meningococcal Immunization (ACWY) Aged Out No longer eligible based on patient's age to complete this topic Rotavirus Immunization Aged Out No lo nger eligible based on patient's age to complete this topic Procedures Procedure Name Priority Date/Time Associated Diagnosis Comments COLONOSCOPY Routine 05/25/2012 from Last 3 Months or Most Recently Relevant to Health Maintenance Results * COLONOSCOPY (05/25/2012) Xenia Cuevas MD PROCEDURE/MINOR SURGICAL ORDER KARELY Final Result from Last 3 Months or Most Recently Relevant to Health Maintenance Insurance MEDICARE [place]ICAID [place] Care Teams Reserves Clerk Relationship Specialty Start Date End Date Colton Dugan MD [address] [address] PCP - General Family Medicine 01/02/18
--- OUTSIDE RECORDS SUMMARY | 2024-10-22 11:47 | XMS_ITS ---
Author Organization [facility] Address [address] [place] [address] Care Team Providers Care Film Cutter Name Role Phone Colton Dugan MD Primary Care Provider [phone] Active Problems Problem Noted Date Diagnosed Date Current tear of medial cartilage or meniscus of knee 06/19/2019 Enthesopathy of hip region 06/19/2019 Injury of lower extremity 06/19/2019 Knee pain 06/19/2019 Osteoarthritis of knee 06/19/2019 Pain in limb 06/19/2019 Labral tear of hip, degenerative 09/06/2018 Overview (09/06/2018): Added automatically from request for surgery [id number] Anxiety 04/19/2018 Chest pain at rest 04/19/2018 Crohn's disease 04/19/2018 Diarrhea 04/19/2018 Smoker 02/26/2018 Overview (02/26/2018): Overview: Current Bipolar 1 disorder, manic, moderate 05/27/2015 Crohn's disease of small intestine without compl ication 05/08/2015 DDD (degenerative disc disease), lumbar 05/08/19 16 Anemia 04/07/2015 Functional abdominal pain syndrome 03/10/2015 Functional diarrhea 03/09/2015 Chronic pain 02/09/2015 GERD (gastroesophageal reflux disease) 5 Difficulty in swallowing 01/20/2015 Nausea with vomiting 01/20/2015 Malignant neoplasm of ovary 01/01/2015 Chronic obstructive pulmonary disease 01/01/2015 Bipolar 1 disorder 01/01/2015 Chest pain 11/13/2014 Notalgia 03/06/2013 Schizoaffective disorder, bipolar type 3 Hypercholesterolemia 03/06/2013 Bronchial asthma 03/06/2013 Migraine 03/06/2013 Current Treatment and Therapy Plans No current plan information found. Past Treatment and Therapy Plans No past plan information found. Lifetime Dose Tracking * Chemical Lifetime Dose Automatic Entry Manual Entr y Fluoro Time 1.318 minutes 1.318 minutes 0 minutes Air kerma at the reference point (Ka,r) 31.61 mGy 3 1.61 mGy 0 mGy DLP 96 mGycm 96 mGycm 0 mGycm
--- OUTSIDE RECORDS SUMMARY | 2024-10-22 11:48 | XMS_ITS | Clinical Summary ---
Author Organization [facility] Address [address] [place] [address] Care Team Providers Care Manager Pool Name Role Phone Colton Dugan MD Primary Care Provider [phone] Allergies Active Allergy Reactions Criticality Noted Date Comments Ciprofloxacin Rash,Swelling Medium 08/26/2015 States has had orally and tolerated fine. Tolerates IV dose IV only, swelling, redness and itching at IV site States has had orally and tolerated fine Ketorolac Urticaria Medium 04/05/2015 Can tolerate Injection, but not oral Nsaids (Non-Steroidal Anti-Inflammatory Drug) Swelling Medium Sulfa (Sulfonamide Antibiotics) Anaphylaxis High Sulfasalazine Swelling,Anaphylaxis High 09/21/2012 Tolmetin Other (See comments) High 01/20/2013 esophagitis Medications omeprazole (PriLOSEC) 40 mg capsule TAKE ONE CAPSULE BY MOUTH ONCE DAILY BEFORE BREAKFAST 6 Active budesonide-formo terol (SYMBICORT) 160-4.5 mcg/actuation inhaler Inhale 2 puffs 2 (two) times a day Rinse mouth with water after use to reduce aftertaste and incidence of candidiasis. Do not swallow. Active albuterol HFA (PROVENTIL HFA,VENTOLIN HFA,PROAIR HFA) 90 mcg/actuation inhaler Inhale 2 puffs as needed 7 Active dicyclomine (BENTYL) 20 mg tablet Take by mouth as needed 6 Active ondansetron (ZOFRAN) 4 mg tablet Take 1 tablet (4 mg total) by mouth every 6 (six) hours as needed for nausea or vomiting 40 tablet 9 Active albuterol (PROVENTIL,FLOWER HENNY) 2.5 mg/0.5 mL solution for nebulization Take 2.5 mg by nebulization as needed Active ibuprofen (ADVIL,MOTRIN) 400 mg tablet Take 400 mg by mouth as needed for pain Active acetaminophen (TYLENOL) 325 mg tablet Take 650 mg by mouth every 4 (four) hours as needed 6 Active famotidine (PEPCID) 20 mg tablet famotidine 20 mg tablet Active SUMAtriptan (IMITREX) 100 mg tablet TAKE 1/2 TAB BY MOUTH AT ONSET OF MIGRAINE 0 Active traZODone (DESYREL) 50 mg tablet 9 Active diphenhydrAMINE- acetaminophen (TYLENOL PM) 25-500 mg tablet Take by mouth as needed Active hydrOXYzine (ATARAX) 25 mg tablet TAKE 1 2 TABLET BY MOUTH THREE TIMES A DAY, NEEDED FOR ANXIETY AND INSOMNIA 0 Active Vraylar 3 mg capsule capsule 0 Active lamoTRIgine (LaMICtal) 100 mg tablet Take 100 mg by mouth daily 1 Active mesalamine (PENTASA) 500 mg CR capsule Take 500 mg by mouth 4 (four) times a day 1 Active gabapentin (NEURONTIN) 100 mg capsule Take 1 capsule (100 mg total) by mouth 3 (three) times a day 90 capsule 11 1 Active HYDROcodone-acet aminophen (NORCO) 10-325 mg per tabletIndication s:Pain Take 1 tablet by mouth every 6 (six) hours as needed for pain 120 tablet 2 Active Active Problems Problem Noted Date Diagnosed Date Current tear of medial cartilage or meniscus of knee 06/19/2019 Enthesopathy of hip region 06/19/2019 Injury of lower extremity 06/19/2019 Knee pain 06/19/2019 Osteoarthritis of knee 06/19/2019 Pain in limb 06/19/2019 Labral tear of hip, degenerative 09/06/2018 Overview (09/06/2018): Added automatically from request for surgery [id number] Anxiety 04/19/2018 Chest pain at rest 04/19/2018 [...] Hypercholesterolemia 03/06/2013 Bronchial asthma 03/06/2013 Migraine 03/06/2013 Immunizations Immunization Administration Dates Next Due Influenza, Quadrivalent, Spl it, Preservative Free, Intramuscular 02/12/2016 Influenza, Trivalent, IM (MDV) 01/14/2013 Influenza, Unspecified 01/15/2015,01/15/2015,04/2012 Pneumococcal Polysaccharide PPV23 02/23/2015,04/2010 Surgical History Surgery Date Site/Laterality Comments SINUS SURGERY 04/17/1981 - 04/16/1982 KNEE ARTHROSCOPY Right x7, 4 arthroscopy and 3 reconstruction. No hardware. Hardware that was placed was removed APPENDECTOMY 04/17/2012 - 04/16/2013 CHOLECYSTECTOMY 04/17/2009 - 04/16/2010 HYSTERECTOMY 04/17/2002 - 04/16/2003 TONSILLECTOMY AND ADENOIDECTOMY 04/17/1979 - 04/16/1980 HIP SURGERY 04/17/2018 - 04/16/2019 Medical History Medical History Date Comments Angina pectoris, unspecified 2013 ER MD initially told angina but later told pleurasy. Never followed up with Ointment Mill Tender. Pain MD feels it may be due to muscle spasms. No chest pain x 4-5 years. Took TNG once without any change in pain. cardiac w/u in ER negative. Higgins's esophagus Insomnia Migraines 2-3/week. Possib ly caused by barometric pressure Anxiety Hyperlipidemia well controlled with meds Asthma uses nebulizer 2 x week. More when high humidity COPD (chronic obstructive pu lmonary disease) ([facility]) last hospitalization 5 years ago Pneumonia last hospitalize d 2013 Chronic pain all over Crohn's disease ([facility]) 2003 last July 2018 last flare up. Pinched nerve slightly limited turning head to left. but no limitation up, down and to right GERD (gastroesophageal reflux disease) well controlled with meds Urinary tract infection last inf ection 07/2018 Bipolar disorder ([facility]) 2003 well cont rolled with meds Depression 2003 well controlled with meds Arthritis Cancer ([facility]) 2002 ovarian cancer, radiation for six months and DARVIN Anesthesia Pt. reports she wakes up crying. Joint pain right hip Mid back pain Family History Medical History Relation Name Comments Cancer Cousin Family history of malignant neoplasm - (Added by TW Conv) Arthritis Father Cancer Father Family history of malignant neoplasm - (Added by TW Conv) Clotting disorder Father Hypertension Father Stroke Father Arthritis Mother Clotting disorder Mother Lung disease Mother Mental illness Mother Heart disease Other 1 Heart Disease - (Added by TW Conv) Hypertension Other 2 Hypertension - (Added by TW Conv) Cancer Other 3 Cancer - (Added by TW Conv) Cancer Other 4 Family history of malignant neoplasm - Relation: Grandparent (Added by TW Conv) Relation Name Status Comments Cousin Father Alive Mother Alive Other 1 Other 2 Other 3 Other 4 Social History Tobacco Use Types Packs/Day Years Used Date Smoking Tobacco: Some Days Cigarettes 0.5 30.2 Started: 1988; Last attempted to quit: 06/2018 Smokeless Tobacco: Never Alcohol Use Standard Drinks/Week Comments Yes 0 (1 standard drink = 0.6 oz pur e alcohol) rarely--1-2x year AUDIT-C Answer Date Recorded Q1: How often do you have a drink containing alc ohol? Monthly or less 08/26/2021 Q2: How many drinks containi ng alcohol do you have on a typical day when you are drinking? 1 or 2 08/26/2021 Q3: How often do you have si x or more drinks on one occasion? Never 08/26/2021 Comments No Sex and Gender Information Value Date Recorded Sex Assigned at Not on file Legal Sex Female 5:21 PM SOFTWARE DEVELOPMENT PROJECT MANAGER Gender Identity Female 05/03/2021 9:56 AM SOFTWARE DEVELOPMENT PROJECT MANAGER Sexual Orientation Not on file Occupation Industry Job Start Date Job End Date disabled Not on file Not on file Not on file Obstetrics History Para Term AB IAB SAB Ectopic Multiple Livin g Live Births 3 3 3 Date Outcome GA Total Labor Labor/2nd/3rd Weight Sex Type Anes PTL Sara A1 A5 Name Clin Term Term Term Last Filed Vital Signs Vital Sign Reading Time Taken Comments Blood Pressure 129/86 11/03/2021 10:46 AM CDT Pulse 80 11/03/2021 10:46 AM CDT Temperature 36.4 C (97.6 F) 11/03/2021 9:21 AM CDT Respiratory Rate 18 11/03/2021 10:46 AM CDT Oxygen Saturation 98% 11/03/2021 10:46 AM CDT Inhaled Oxygen Concentration - - Weight 72.6 kg (160 lb) 11/03/2021 9:21 AM CDT Height 170.2 cm (5' 7) 11/11/2020 9:50 AM CDT Body Mass Index 25.06 11/11/2020 9:50 AM CDT Plan of Treatment Health Maintenance Due Date Last Done Comments Breast Cancer Screening-Mammogram 1971 Depression Screening 1971 DTaP/Tdap/Td Vaccine (1 - Tdap) 06/15/1982 Hepatitis B Screening 06/15/1989 Regular Well Visit/Exam 18-64 06/15/1989 Pneumococcal vaccine <65 (2 of 2 - PCV) 02/24/2016 02/23/2015, 12/16/2010 Zoster Vaccine (1 of 2) 06/15/2021 Influenza Vaccine (#1) 2024 , 12/14/2019, 02/12/2016, Additional history exists Colon Cancer Screening-Colonoscopy 01/22/20252014 Hepatitis C Screening Completed 03/16/2015 Goals Goal Patient Goal Type Associated Problems Recent Progress Patient-Stated? Author CCM Chronic Pain Care Plan Chronic Care Management No Gricel Ivory, RN Note: Problem: Chronic Pain Goals: 1. [...] on stairs Contact your local community or [facility] for information on exercise, fall prevention programs, or options for improving home safety. Medical Devices Implanted Type Area Bridge Manager Device Identifier Shelf Expiration Date Model / Serial / Lot Pivot Medical [id number] Cinchlock Ss Knotless Personal Trainer Lock [place] Suture Labrum - [id number] Implanted:Qty: 1 on 11/28/2018 by Manuela Graham MD at [facility] Right: Hip [employer] [id number] 01/11/2020 [id number] / / [id number] Pivot Medical [id number] Cinchlock Ss Knotless Personal Trainer Lock [place] Suture Labrum - [id number] Implanted:Qty: 1 on 11/28/2018 by Manuela Graham MD at [facility] Right: Hip [employer] [id number] 01/11/2020 [id number] / / [id number] Pivot Medical [id number] Cinchlock Ss Knotless Personal Trainer Lock [place] Suture Labrum - [id number] Implanted:Qty: 1 on 11/28/2018 by Manuela Graham MD at [facility] Right: Hip [employer] [id number] 09/20/2019 [id number] / / [id number] Procedures Procedure Name Priority Date/Time Associated Diagnosis Comments HEPATITIS C ANTIBODY Routine 03/16/2015 4:25 PM SOFTWARE DEVELOPMENT PROJECT MANAGER COLONOSCOPY REPORT 01/22/2015 from Last 3 Months or Most Recently Relevant to Health Maintenance Results * Hepatitis C antibody (03/16/2015 4:25 PM SOFTWARE DEVELOPMENT PROJECT MANAGER) Hep C Ab NONREACT NONREACTIVE 03/16/2015 5:46 PM SOFTWARE DEVELOPMENT PROJECT MANAGER [facility] HISTORICAL RESULTS Comment: Siemens CentaurXP using HARJINDER (chemiluminescent immunoassay) technology. NONREACTIVE: Antibodies to Hepatitis C not detected. This does not exclude early acute Hepatitis C infection, possibility of exposure to Hepatitis C, antibodies below detection limit, or to lack of antibody reactivity to the antigen used in this assay. EQUIVOCAL: Antibodies to Hepatitis C may or may not be present. Sample to be confirmed by real-time PCR method. REACTIVE: Antibodies to Hepatitis C detected. 03/16/2015 4:25 PM SOFTWARE DEVELOPMENT PROJECT MANAGER 03/16/2015 4:31 PM SOFTWARE DEVELOPMENT PROJECT MANAGER Ayan Stevenson DO LAB MICROBIOLOGY - GENERAL ORD ERABLES Final Result [facility] HISTORICAL RESULTS * COLONOSCOPY REPORT (01/22/2015) Anatomical Region Laterality Modality Other Narrative 01/22/2015 Ordered by an unspecified provider. Historical Provider GI PROCEDURE ORDERABLES F inal Result from Last 3 Months or Most Recently Relevant to Health Maintenance Additional Health Concerns Infection Onset Date Last Indicated C. difficile 08/14/2018 08/13/2018 Insurance [address] [place] [address] [place] [address] [facility] [place] MEDICARE MEDICARE MEDICARE [facility] Address: [address] [address] [place] [address] IDPA Care Teams Manager Pool Relationship Specialty Start Date End Date Colton Dugan MD PCP - General Family Medicine 04/02/18
--- OUTSIDE RECORDS SUMMARY | 2024-10-22 11:48 | XMS_ITS | Patient Health Record ---
Author Organization [facility] Address [address] [place], [place] [id number] Care Team Providers Care Health Information Specialist Name Role Phone JESUS STRINGER Unavailable [phone] Santo Constantino Unavailable Unavailable Reason For Referral No Information Plan Of Treatment No Information Insurance Providers Payer Name Payer Address Payer Phone Subscriber Number Group Number Insured Name Patient Relationship to Insured Coverage Start Date Coverage End Date Medicare Part B [place] [address] [place] [address] [id number] GERMAN LOUIS Self - patient is the insured [facility] [address] [place], [place] [phone] [id number] GERMAN LOUIS Self - patient is the insured
--- OUTSIDE RECORDS SUMMARY | 2024-10-22 11:48 | XMS_ITS | Encounter Summary ---
Author Organization [facility] Address [address] [place] [address] Care Team Providers Care Genetic Counsellor Name Role Phone Colton Dugan MD Primary Care Provider [phone] Reason for Visit * Reason Onset Date Comments Appointment 08/09/2018 Encounter Details Date Type Department Care Team (Late st Contact Info) Description 08/09/2018 Telephone [facility] [place] [facility] [address] [facility] [address] [place] [address] Marilyn Schwartz MD [address] [facility] [address] [place] [address] Appointment Social History Tobacco Use Types Packs/Day Years Used Date Smoking Tobacco: Former Smokeless Tobacco: Never Alcohol Use Standard Drinks/Week Comments Yes 0 (1 standard drink = 0.6 oz pur e alcohol) Comments No Sex and Gender Information Value Date Recorded Sex Assigned at Not on file Legal Sex Female 5:21 PM CONVENTION MANAGER Gender Identity Female 05/03/2021 9:56 AM CONVENTION MANAGER Sexual Orientation Not on file Occupation Industry Job Start Date Job End Date disabled Not on file Not on file Not on file documented as of this encounter Plan of Treatment Not on file documented as of this encounter Goals Goal Patient Goal Type Associated Problems Recent Progress Patient-Stated? Author CCM Chronic Pain Care Plan Chronic Care Management Gricel Stiles, RN Note: Problem: Chronic Pain Goals: 1. Minimize further functional decline 2. Maximize quality of life 3. Control pain Strategies: - Activity/exercise program recommendation - Conservative stepwise pain medicine strategy with multi-disciplinary approach - Recommend healthy lifestyle strategies and compensatory methods as needed Reduce the likelihood of falling Lifestyle Gricel Stiles RN Note: Below are four things you [...] on stairs Contact your local community or [facility] for information on exercise, fall prevention programs, or options for improving home safety. documented as of this encounter Visit Diagnoses Not on filedocumented in this encounter Additional Health Concerns Infection Onset Date Last Indicated Resolved Time C. difficile 08/14/2018 08/13/2018 documented as of this encounter Care Teams Genetic Counsellor Relationship Specialty Start Date End Date Colton Dugan MD PCP - General Family Medicine 04/02/18 documented as of this encounter
--- OUTSIDE RECORDS SUMMARY | 2024-10-22 11:48 | XMS_ITS | Referral Summary ---
Author Organization [facility] Address [address] [place] [address] Care Team Providers Care Fashion Styling Intern Name Role Phone Colton Dugan MD Primary Care Provider [phone] Allergies Active Allergy Reactions Criticality Noted Date [...] (09/06/2018): Added automatically from request for surgery [id number] Anxiety 04/19/2018 Chest pain at rest 04/19/2018 [...] Influenza, Unspecified 01/15/2015,01/15/2015,04/2012 Pneumococcal Polysaccharide PPV23 02/23/2015,04/2010 Social History Tobacco Use Types Packs/Day Years [...] on file Legal Sex Female 5:21 PM CINDER PITMAN Gender Identity Female 05/03/2021 9:56 AM CINDER PITMAN Sexual Orientation Not on file Occupation Industry [...] 11/11/2020 9:50 AM CDT Plan of Treatment Not on file Goals Goal Patient Goal Type Associated Problems [...] Reduce the likelihood of falling Lifestyle Gricel Stiles, RN Note: Below are four things you [...] on stairs Contact your local community or senior center for information on exercise, fall prevention programs, or options for improving home safety. Medical Devices Implanted Type Area Steel Fitter Device Identifier Shelf Expiration Date Model / Serial / Lot Pivot Medical [id number] Jean Ss Knotless Numerical Tool Programmer Lock [place] Suture Labrum - [id number] Implanted:Qty: 1 on 11/28/2018 by Manuela Graham MD at [facility] Right: Hip [employer] [id number] 01/11/2020 [id number] / / [id number] Pivot Medical [id number] Cinchlock Ss Knotless Numerical Tool Programmer Lock [place] Suture Labrum - [id number] Implanted:Qty: 1 on 11/28/2018 by Manuela Graham MD at [facility] [place] Right: Hip [employer] [id number] 01/11/2020 [id number] / / [id number] Pivot Medical [id number] Cinchlock Ss Knotless Numerical Tool Programmer Lock [place] Suture Labrum - [id number] Implanted:Qty: 1 on 11/28/2018 by Manuela Graham MD at [facility] [place] Right: Hip [employer] [id number] 09/20/2019 [id number] / / [id number] Procedures Procedure Name Priority Date/Time Associated Diagnosis Comments HEPATITIS C ANTIBODY Routine 03/16/2015 4:25 PM CINDER PITMAN COLONOSCOPY REPORT 01/22/2015 from Last 3 Months or Most Recently Relevant to Health Maintenance Results * Hepatitis C antibody (03/16/2015 4:25 PM CINDER PITMAN) Hep C Ab NONREACT NONREACTIVE 03/16/2015 5:46 PM CINDER PITMAN [facility] HISTORICAL RESULTS Comment: Siemens Rapid RMSaurXP using HARJINDER (chemiluminescent immunoassay) technology. NONREACTIVE: Antibodies [...] to Hepatitis C detected. 03/16/2015 4:25 PM CINDER PITMAN 03/16/2015 4:31 PM CINDER PITMAN Ayan Stevenson DO LAB MICROBIOLOGY - GENERAL ORD ERABLES Final Result [facility] HISTORICAL RESULTS * COLONOSCOPY REPORT (01/22/2015) Anatomical Region Laterality Modality Other Narrative 01/22/2015 Ordered by an unspecified provider. us Historical Provider GI PROCEDURE ORDERABLES F inal Result from Last 3 Months or Most Recently Relevant to Health Maintenance Additional Health Concerns Infection Onset Date Last Indicated C. difficile 08/14/2018 08/13/[address] [place] [address] [place] [address] MEDICARE MEDICARE MEDICARE [facility] Care Teams Fashion Styling Intern Relationship Specialty Start Date End Date Colton Dugan MD PCP - General Family Medicine 04/02/18
--- NOTE | 2024-10-22 11:58 | PC.NURSE ---
pt had hysterectomy in 2004
[2024-10-22 12:10] LABS: Hematocrit 42.2 % (37.0-47.0); Hemoglobin 14.2 g/dL (12.0-15.0); Immature Granulocyte Percent A 0.2 % (0-0.5); Lymphocytes Absolute Auto 3.13 K/mm3 (0.9-3.2); Mean Corpuscular HGB Conc 33.6 g/dl (32-36); Mean Corpuscular Hemoglobin 31.1 pg (26-34); Mean Corpuscular Volume 92.5 fl (80-100); Nucleated Red Blood Cells Absolute Auto 0.000 K/mm3 (0.0-0.012); Nucleated Red Blood Cells Perc 0.0 % (0.0-0.2); Platelet Count Result 277 k/mm3 (150-375); Red Blood Count 4.56 M/mm3 (4.2-5.4); White Blood Count 6.0 K/mm3 (4.5-10.0)
[2024-10-22 12:19] LABS: Alanine Aminotransferase 13 U/L (6-35); Albumin Level 4.5 g/dL (3.5-5.1); Alkaline Phosphatase 62 U/L (38-126); Anion Gap 8 mmol/L (4-12); Aspartate Amino Transferase 21 U/L (14-36); Bilirubin,Total 0.3 mg/dL (0.2-1.3); Blood Urea Nitrogen 11 mg/dL (7-17); Calcium 9.4 mg/dL (8.4-10.2); Carbon Dioxide 26 mmol/L (22-30); Chloride 105 mmol/L (98-107); Estimated Glomerular Filt Rate > 60; Glucose 98 mg/dL (65-110); Lipase 102 U/L (23-300); Potassium 4.1 mmol/L (3.4-5.0); Sodium 139 mmol/L (137-145); Total Protein 7.5 g/dL (6.3-8.2)
[2024-10-22 12:22] LABS: Add Urine Microscopic? YES; Appearance Urine Clear (Clear); Glucose Urine UA Negative (Negative); Leukocyte Esterase Ur 1+ LEU/UL (Negative); Need Manual Microscopic Reviewed; Nitrate Urine Negative (Negative); Non Pathogenic Casts 0-2; Specific Grav Ur 1.008 (1.001-1.035)
--- OUTSIDE RECORDS SUMMARY | 2024-10-22 12:50 | XMS_ITS ---
Author Organization [facility] Address [address] [place] [address] Care Team Providers Care Manager Purchasing Name Role Phone Colton Dugan MD Primary Care Provider [phone] Active Problems Problem Noted Date Diagnosed Date Current tear of medial cartilage or meniscus of knee 06/19/2019 Enthesopathy of hip region 06/19/2019 Injury of lower extremity 06/19/2019 Knee pain 06/19/2019 Osteoarthritis of knee 06/19/2019 Pain in limb 06/19/2019 Labral tear of hip, degenerative 09/06/2018 Overview (09/06/2018): Added automatically from request for surgery [id number] Anxiety 04/19/2018 Chest pain at rest 04/19/2018 [...]
--- OUTSIDE RECORDS SUMMARY | 2024-10-22 12:50 | XMS_ITS | Encounter Summary ---
Author Organization [facility] Healthcare Address [address] [place] [address] Care Team Providers Care Mri Special Procedures Technologist Name Role Phone Colton Dugan MD Primary Care Provider [phone] Reason for Visit * Reason Onset Date Comments Appointment 08/09/2018 Encounter Details Date Type Department Care Team (Late st Contact Info) Description 08/09/2018 Telephone [facility] [place] [facility] [address] [facility] Advanced Medicine [address] [place] [address] Marilyn Schwartz MD [address] [facility] [address] [place] [address] Appointment Social History Tobacco Use Types Packs/Day Years Used Date Smoking Tobacco: Former Smokeless Tobacco: Never Alcohol Use Standard Drinks/Week Comments Yes 0 (1 standard drink = 0.6 oz pur e alcohol) Comments No Sex and Gender Information Value Date Recorded Sex Assigned at Not on file Legal Sex Female 5:21 PM VICE CHAIR Gender Identity Female 05/03/2021 9:56 AM VICE CHAIR Sexual Orientation Not on file Occupation Industry [...] on stairs Contact your local community or [facility] for information on exercise, fall prevention programs, or options for improving home safety. documented as of this encounter Visit Diagnoses Not on filedocumented in this encounter Additional Health Concerns Infection Onset Date Last Indicated Resolved Time C. difficile 08/14/2018 08/13/2018 documented as of this encounter Care Teams Mri Special Procedures Technologist Relationship Specialty Start Date End Date Colton Dugan MD PCP - General Family Medicine 04/02/18 documented as of this encounter
--- OUTSIDE RECORDS SUMMARY | 2024-10-22 12:50 | XMS_ITS | Clinical Summary ---
Author Organization [facility] Address [address] [place] [address] Care Team Providers Care Record Cutter Name Role Phone Kodak Dillard MD Unavailable [phone] Maxwell Barrera DO Primary Care Provider Source Comments [facility],non-owned Affiliates and Associated Physician Practices is amultiple site organization consisting of ambulatory clinics and hospital sitesin [place], [place], [place]. This disclosure is being madepursuant to the Care Everywhere program and may not contain all information available regarding this patient. Last updated 18.[facility] Allergies Active Allergy Reactions Criticality Noted Date [...] on file Legal Sex Female 9:19 AM RATE REVIEWER Gender Identity Not on file Sexual Orientation Not on file Last Filed Vital Signs Vital Sign Reading Time Taken Comments Blood Pressure 115/75 03/10/2017 3:51 PM RATE REVIEWER Pulse 66 03/10/2017 3:51 PM RATE REVIEWER Temperature 36.9 C (98.5 F) 03/10/2017 1:51 PM RATE REVIEWER Respiratory Rate 16 03/10/2017 3:51 PM RATE REVIEWER Oxygen Saturation 100% 03/10/2017 3:51 PM RATE REVIEWER Inhaled Oxygen Concentration 21% 02/12/2016 5 :07 AM CDT Weight 59 kg (130 lb) 03/10/2017 1:51 PM RATE REVIEWER Height 171.5 cm (5' 7.5) 03/10/2017 1:51 PM RATE REVIEWER Body Mass Index 20.06 03/10/2017 1:51 PM RATE REVIEWER Plan of Treatment Health Maintenance Due Date [...] Immunoassay Negative Negative 02/10/2016 7:22 PM CDT [facility] Stool STOOL SPECIMEN / Unknown 02/10/2016 6:53 PM CDT 02/10/2016 7:06 PM CDT Sarah Isbell ENVIRONMENTAL COMPLIANCE ENGINEER-SPICE GRINDER LAB - MICROBIOLOGY ORD ERABLES Final Result Performing Organization Address City/State/[facility] Co de Phone Number [facility] [address] from Last 3 Months or Most [...] 11:24 PM 04/28/2015 5:23 PM Care Teams Record Cutter Relationship Specialty Start Date End Date Maxwell Barrera DO [address] [place] [address] [id number] PCP - General 10/16/18 Kodak Dillard MD [address] [place] [id number] Pain Management Physical Medicine and Rehabilitation 07/03/15
--- OUTSIDE RECORDS SUMMARY | 2024-10-22 12:50 | XMS_ITS | Clinical Summary ---
Author Organization [facility] Address [address] [place] [address] Care Team Providers Care Appliance Assembler Name Role Phone Colton Dugan MD Primary Care Provider [phone]- [phone] Allergies Active Allergy Reactions Criticality Noted Date [...] (09/06/2018): Added automatically from request for surgery [id number] Anxiety 04/19/2018 Chest pain at rest 04/19/2018 [...] later told pleurasy. Never followed up with Employment Training Specialist. Pain MD feels it may be due to muscle spasms. No chest pain x 4-5 years. Took TNG once without any change in pain. cardiac w/u in ER negative. Higgins's esophagus Insomnia Migraines 2-3/week. Possib ly caused by barometric pressure Anxiety Hyperlipidemia well controlled with meds Asthma uses nebulizer 2 x week. More when high humidity COPD (chronic obstructive pu lmonary disease) ([facility]) last hospitalization 5 years ago Pneumonia last hospitalize d 2013 Chronic pain all over Crohn's disease ([facility]) 2003 last July 2018 last flare up. Pinched nerve slightly limited turning head to left. but no limitation up, down and to right GERD (gastroesophageal reflux disease) well controlled with meds Urinary tract infection last inf ection 07/2018 Bipolar disorder ([facility]) 2003 well cont rolled with meds Depression 2003 well controlled with meds Arthritis Cancer ([facility]) 2002 ovarian cancer, radiation for six months [...] on file Legal Sex Female 5:21 PM FIBER PICKER Gender Identity Female 05/03/2021 9:56 AM FIBER PICKER Sexual Orientation Not on file Occupation Industry [...] on stairs Contact your local community or [facility] for information on exercise, fall prevention programs, or options for improving home safety. Medical Devices Implanted Type Area Catia Designer Device Identifier Shelf Expiration Date Model / Serial / Lot Pivot Medical [id number] Cinchlock Ss Knotless Appraisal Specialist Lock [place] Suture Labrum - [id number] Implanted:Qty: 1 on 11/28/2018 by Manuela Graham MD at [facility] Right: Hip [employer]ivot [employer] [id number] 01/11/2020 [id number] / / [id number] Pivot Medical [id number] Cinchlock Ss Knotless Appraisal Specialist Lock [place] Suture Labrum - [id number] Implanted:Qty: 1 on 11/28/2018 by Manuela Graham MD at [facility] Right: Hip [employer] Medical [id number] 01/11/2020 [id number] / / [id number] Pivot Medical [id number] Cinchlock Ss Knotless Appraisal Specialist Lock [place] Suture Labrum - [id number] Implanted:Qty: 1 on 11/28/2018 by Manuela Graham MD at [facility] Right: Hip Pivot Medical [id number] 09/20/2019 [id number] / / [id number] Procedures Procedure Name Priority Date/Time Associated Diagnosis Comments HEPATITIS C ANTIBODY Routine 03/16/2015 4:25 PM FIBER PICKER COLONOSCOPY REPORT 01/22/2015 from Last 3 Months or Most Recently Relevant to Health Maintenance Results * Hepatitis C antibody (03/16/2015 4:25 PM FIBER PICKER) Hep C Ab NONREACT NONREACTIVE 03/16/2015 5:46 PM FIBER PICKER [facility] HISTORICAL RESULTS Comment: Siemens CentaurXP using HARJINDER [...] to Hepatitis C detected. 03/16/2015 4:25 PM FIBER PICKER 03/16/2015 4:31 PM FIBER PICKER Ayan Stevenson DO LAB MICROBIOLOGY - GENERAL ORD ERABLES Final Result [facility] HISTORICAL RESULTS * COLONOSCOPY REPORT (01/22/2015) Anatomical Region Laterality Modality Other Narrative 01/22/2015 Ordered by an unspecified provider. Historical Provider GI PROCEDURE ORDERABLES F inal Result from Last 3 Months or Most Recently Relevant to Health Maintenance Additional Health Concerns Infection Onset Date Last Indicated C. difficile 08/14/2018 08/13/2018 Insurance [address] [place] [address] MEDICARE [facility]FL MEDICARE MEDICARE MEDICARE [facility] Address: [address] [address] [place] [address] IDPA Care Teams Appliance Assembler Relationship Specialty Start Date End Date Colton Dugan MD PCP - General Family Medicine 04/02/18
--- OUTSIDE RECORDS SUMMARY | 2024-10-22 12:50 | XMS_ITS | Encounter Summary ---
Author Organization [facility] Address [address] [place] [address] Phone Care Team Providers Care Learning Engineer Name Role Phone Unknown, Notinfile Primary Care Provider Unavail able Colton Dugan MD Primary Care Provider [phone]- [phone] Encounter Details Date Type Department Care Team (Late st Contact Info) Description 02/20/2018 Orders Only [facility] Orthopaedic Surgery [address] [facility] 2nd [address] [place] [id number] Ian Seals, DAVE [address] [place], [place] [id number] Social History Tobacco Use Types Packs/Day Years Used Date Smoking Tobacco: Every Day Comments No Sex and Gender Information Value Date Recorded Sex Assigned at Not on file Legal Sex Female 5:21 PM MEDICAL SCIENTIFIC LIAISON Gender Identity Female 05/03/2021 9:56 AM MEDICAL SCIENTIFIC LIAISON Sexual Orientation Not on file documented as of this encounter Plan of Treatment Not on file documented as of this encounter Visit Diagnoses Not on filedocumented in this encounter Additional Health Concerns Infection Onset Date Last Indicated Resolved Time C. difficile 08/14/2018 08/13/2018 documented as of this encounter Care Teams Learning Engineer Relationship Specialty Start Date End Date Unknown, Yojana PCP - General 12/19/17 04/01/18 Colton Dugan MD PCP - General Family Medicine 04/02/18 documented as of this encounter
--- OUTSIDE RECORDS SUMMARY | 2024-10-22 12:50 | XMS_ITS | Referral Summary ---
Author Organization [facility] Address [address] [place] [address] Care Team Providers Care Assistant Project Engineer Name Role Phone Colton Dugan MD Primary Care Provider [phone] Allergies Active Allergy Reactions Criticality Noted Date [...] (09/06/2018): Added automatically from request for surgery [id number] Anxiety 04/19/2018 Chest pain at rest 04/19/2018 [...] on file Legal Sex Female 5:21 PM SOLAR ENERGY ADVISOR Gender Identity Female 05/03/2021 9:56 AM SOLAR ENERGY ADVISOR Sexual Orientation Not on file Occupation Industry [...] home safety. Medical Devices Implanted Type Area Superintendent Building Device Identifier Shelf Expiration Date Model / Serial / Lot Pivot Medical [id number] Jean Ss Knotless Oil Well Logger Lock [place] Suture Labrum - [id number] Implanted:Qty: 1 on 11/28/2018 by Manuela Graham MD at [facility] Right: Hip [employer]ivot Medical [id number] 01/11/2020 [id number] / / [id number] Pivot Medical [id number] Cinchlock Ss Knotless Oil Well Logger Lock [place] Suture Labrum - [id number] Implanted:Qty: 1 on 11/28/2018 by Manuela Graham MD at [facility] Right: Hip [employer] Medical [id number] 01/11/2020 [id number] / / [id number] Pivot Medical [id number] Cinchlock Ss Knotless Oil Well Logger Lock [place] Suture Labrum - [id number] Implanted:Qty: 1 on 11/28/2018 by Manuela Graham MD at [facility] Right: Hip Pivot Medical [id number] 09/20/2019 [id number] / / [id number] Procedures Procedure Name Priority Date/Time Associated Diagnosis Comments HEPATITIS C ANTIBODY Routine 03/16/2015 4:25 PM SOLAR ENERGY ADVISOR COLONOSCOPY REPORT 01/22/2015 from Last 3 Months or Most Recently Relevant to Health Maintenance Results * Hepatitis C antibody (03/16/2015 4:25 PM SOLAR ENERGY ADVISOR) Hep C Ab NONREACT NONREACTIVE 03/16/2015 5:46 PM SOLAR ENERGY ADVISOR [facility] HISTORICAL RESULTS Comment: Siemens Yoursphere MediaaurXP using HARJINDER (chemiluminescent immunoassay) technology. NONREACTIVE: Antibodies [...] to Hepatitis C detected. 03/16/2015 4:25 PM SOLAR ENERGY ADVISOR 03/16/2015 4:31 PM SOLAR ENERGY ADVISOR Ayan Stevenson DO LAB MICROBIOLOGY - GENERAL ORD ERABLES Final Result [facility] HISTORICAL RESULTS * COLONOSCOPY REPORT (01/22/2015) Anatomical Region Laterality Modality Other Narrative 01/22/2015 Ordered by an unspecified provider. us Historical Provider GI PROCEDURE ORDERABLES F inal Result from Last 3 Months or Most Recently Relevant to Health Maintenance Additional Health Concerns Infection Onset Date Last Indicated C. difficile 08/14/2018 08/13/[address] [place] [address] [place] [address] MEDICARE MEDICARE MEDICARE [facility] Care Teams Assistant Project Engineer Relationship Specialty Start Date End Date Colton Dugan MD PCP - General Family Medicine 04/02/18
--- OUTSIDE RECORDS SUMMARY | 2024-10-22 12:50 | XMS_ITS | Encounter Summary ---
Author Organization [facility] Address [address] [place] [address] Care Team Providers Care Outbound Sales Advisor Name Role Phone Colton Dugan MD Primary Care Provider [phone] Reason for Visit * Reason Onset Date Comments Updated pharmacy 06/28/2019 Encounter Details Date Type Department Care Team (Late st Contact Info) Description 06/28/2019 Telephone [facility] [address] [facility] [facility] [address] [place] [address] Marilyn Schwartz MD [address] [facility] [address] [place] [address] Updated pharmacy Social History Tobacco [...] on file Legal Sex Female 5:21 PM BONDING MACHINE TENDER Gender Identity Female 05/03/2021 9:56 AM BONDING MACHINE TENDER Sexual Orientation Not on file Occupation Industry [...] on stairs Contact your local community or [facility] for information on exercise, fall prevention programs, or options for improving home safety. documented as of this encounter Visit Diagnoses Not on filedocumented in this encounter Additional Health Concerns Infection Onset Date Last Indicated Resolved Time C. difficile 08/14/2018 08/13/2018 documented as of this encounter Care Teams Outbound Sales Advisor Relationship Specialty Start Date End Date Colton Dugan MD PCP - General Family Medicine 04/02/18 documented as of this encounter
--- OUTSIDE RECORDS SUMMARY | 2024-10-22 12:50 | XMS_ITS | Clinical Summary ---
Author Organization [facility] Address [address], [facility] [address] [place] [address] Phone Care Team Providers Care Pharmacy Technician Per Diem Name Role Phone Colton Dugan MD Primary Care Provider [phone] Allergies Active Allergy Reactions Criticality Noted Date [...] 72.6 kg (160 lb) 06/10/2019 7:00 AM OVEN STRIPPER Height 167.6 cm (5' 6) 06/10/2019 7:00 AM OVEN STRIPPER Body Mass Index 25.82 06/10/2019 7:00 AM OVEN STRIPPER Plan of Treatment Health Maintenance Due Date [...] Maintenance Insurance MEDICARE [place]ICAID [place] Care Teams Pharmacy Technician Per Diem Relationship Specialty Start Date End Date Colton Dugan MD [address] [address] PCP - General Family Medicine 01/02/18
--- OUTSIDE RECORDS SUMMARY | 2024-10-22 12:50 | XMS_ITS | Encounter Summary ---
Author Organization [facility] Address [facility] [place] [address] Care Team Providers Care Front End Driver Name Role Phone Md Generic Conversion Primary Care Provider Unavailable Md Generic Conversion Primary Care Provider Unavailable Md Generic Conversion Primary Care Provider Unavailable Md Generic Conversion Primary Care Provider Unavailable Md Generic Conversion Primary Care Provider Unavailable Md Generic Conversion Primary Care Provider Unavailable Md Generic Conversion Primary Care Provider Unavailable Md Generic Conversion Primary Care Provider Unavailable Md Generic Conversion Primary Care Provider Unavailable Md Generic Conversion Primary Care Provider Unavailable Md Generic Conversion Primary Care Provider Unavailable Md Generic Conversion Primary Care Provider Unavailable Md Generic Conversion Primary Care Provider Unavailable Md Generic Conversion Primary Care Provider Unavailable Md Generic Conversion Primary Care Provider Unavailable Md Generic Conversion Primary Care Provider Unavailable Ashley Barreraony L DO Primary Care Provider + [phone] BarreraAshley alony L DO Primary Care Provider + [phone] Barrera Maxwell L DO Primary Care Provider + [phone] Barrera Maxwell L DO Primary Care Provider + [phone] Barrera Maxwell L DO Primary Care Provider + [phone] Barrera, Maxwell L DO Primary Care Provider + [phone] Md Generic Conversion Primary Care Provider Unavailable Md Generic Conversion Primary Care Provider Unavailable Md Generic Conversion Primary Care Provider Unavailable Md Generic Conversion Primary Care Provider Unavailable Veronique Murillo MD Primary Care Provider + [phone] Veronique Murillo MD Primary Care Provider +[phone] Md Generic Conversion Primary Care Provider Unavailable Md Generic Conversion Primary Care Provider Unavailable Huy Cyr MD Primary Care Provider [phone] Gordo Atkinson DO Primary Care Provider Colton Dugan MD Primary Care Provider + [phone] Santo Constantino MD Primary Care Provider Encounter Details Date Type Department Care Team (Late st Contact Info) Description 03/12/2012 Abstract [facility] Conversion , Generic ConversionMD Social History Tobacco Use Types Packs/Day Years Used Date Smoking Tobacco: Never Assessed Comments Unknown Sex and Gender Information Value Date Recorded Sex Assigned at Female 05/22/2024 11:06 AM STORE DELI MANAGER Legal Sex Female 7:23 PM CDT Gender Identity Not on file Sexual Orientation Not on file documented as of this encounter Plan of Treatment Upcoming Encounters Date Type Department Care Team (Late st Contact Info) Description 11/12/2024 8:20 AM CDT Office Visit [facility] - [place] [address] [place] [address] [place] [id number] [place] [id number] 11/19/2024 1:00 PM CDT Office Visit [facility] - [address], [address] [place] [address] Mayur Connolly MD [address] [place] [address] documented as of this encounter Visit Diagnoses Not on filedocumented in this encounter Additional Health Concerns Infection Onset Date Last Indicated Resolved Time C. difficile 11/23/2016 11/23/2016 12/09/2019 12:4 1 PM CDT COVID-19 Rule Out 04/02/2020 04/02/2020 04/03/2020 5:27 PM STORE DELI MANAGER COVID-19 Rule Out 06/27/2020 06/27/2020 06/28/2020 10:26 AM CDT COVID-19 Rule Out 05/23/2024 05/23/2024 05/23/2024 3:35 PM STORE DELI MANAGER documented as of this encounter Care Teams Front End Driver Relationship Specialty Start Date End Date Md, Generic Conversion, PCP - General 02/22/15 Md, Generic Conversion, MD PCP - General 02/11/15 Md, Generic Conversion, MD PCP - General 02/09/1502/10 Md, Generic Conversion, MD PCP - General 02/08/1502/08 Md, Generic Conversion, MD PCP - General 02/07/1502/07 Md, Generic Conversion, MD PCP - General 02/06/1502/06 Md, Generic Conversion, MD PCP - General 01/31/1502/05 Md, Generic Conversion, MD PCP - General 01/26/1501/30 Md, Generic Conversion, MD PCP - General 01/18/1501/25 Md, Generic Conversion, MD PCP - General 01/13/15 Md, Generic Conversion, MD PCP - General 01/07/15 Md, Generic Conversion, MD PCP - General 12/31/14 Md, Generic Conversion, MD PCP - General 12/24/14 Md, Generic Conversion, MD PCP - General 12/03/14 5 Md, Generic Conversion, MD PCP - General 11/25/14 Md, Generic Conversion, MD PCP - General 11/04/14 Maxwell Barrera DO PCP - General 09/11/14 11/03/14 Maxwell Barrera DO PCP - General 09/05/14 09/10/14 BarreraMaxwell al, DO PCP - General 08/13/14 09/04/14 BarreraMaxwell al DO PCP - General 07/31/14 08/12/14 Maxwell Barrera DO PCP - General 07/29/14 07/30/14 Maxwell Barrera, DO PCP - General 07/17/14 07/28/14 Md, Generic Conversion, PCP - General 07/13/14 5 Md, Generic Conversion, MD PCP - General 06/18/14 Md, Generic Conversion, MD PCP - General 05/02/14 5 Md, Generic Conversion, MD PCP - General 04/13/14 Veronique Murillo MD PCP - General 03/12/14 04/12/14 Veronique Murillo MD PCP - General 01/30/14 03/11/14 , Generic Conversion, PCP - General 12/15/1301/29 , Generic Conversion, PCP - General 11/20/12 Huy Cyr MD PCP - General 11/07/12 11/19/12 Gordo Atkinson DO PCP - General 09/29/11 11/06/12 Colton Dugan MD [address] [place] [address] PCP - General FAMILY PRACTICE 12/08/19 12/10/19 [place] [address] [place] [address] PCP - General FAMILY PRACTICE 12/11/19 documented as of this encounter
--- OUTSIDE RECORDS SUMMARY | 2024-10-22 12:51 | XMS_ITS | Encounter Summary ---
Author Organization [facility] Address [address] [place] [address] Care Team Providers Care Supervisor Calibration Name Role Phone Colton Dugan MD Primary Care Provider [phone] Santo Constantino MD Primary Care Provider [phone] Encounter Details Date Type Department Care Team (Late Contact Info) Description 10/31/2017 Abstract [facility] CONVERSION [address] [place] [address] , Generic MD Varghese Social History Tobacco Use Types Packs/Day Years Used Date Smoking Tobacco: Never Assessed Comments Unknown Sex and Gender Information Value Date Recorded Sex Assigned at Female 05/22/2024 11:06 AM TAVERN KEEPER Legal Sex Female 7:23 PM CDT Gender Identity Not on file Sexual Orientation Not on file documented as of this encounter Plan of Treatment Upcoming Encounters Date Type Department Care Team (Late Contact Info) Description 11/12/2024 8:20 AM CDT Office Visit [facility] Family & Internal Medicine [facility] [address] [place] [address] [place] [address] [place] [address] 11/19/2024 1:00 PM CDT Office Visit [facility]pec[facility]ty [facility] - [address], [address] [place] [address] Mayur Connolly MD [address] [place] [address] documented as of this encounter Visit Diagnoses Not on filedocumented in this encounter Additional Health Concerns Infection Onset Date Last Indicated Resolved Time C. difficile 11/23/2016 11/23/2016 12/09/2019 12:4 1 PM CDT COVID-19 Rule Out 04/02/2020 04/02/2020 04/03/2020 5:27 PM TAVERN KEEPER COVID-19 Rule Out 06/27/2020 06/27/2020 06/28/2020 10:26 AM CDT COVID-19 Rule Out 05/23/2024 05/23/2024 05/23/2024 3:35 PM TAVERN KEEPER documented as of this encounter Care Teams Supervisor Calibration Relationship Specialty Start Date End Date Colton Dugan MD [address] [place] [address] PCP - General FAMILY PRACTICE 12/08/19 12/10/19 [place] [address] [place] [address] PCP - General FAMILY PRACTICE 12/11/19 documented as of this encounter
--- OUTSIDE RECORDS SUMMARY | 2024-10-22 12:51 | XMS_ITS | Encounter Summary ---
Author Organization [facility] Address [address] [place] [address] Care Team Providers Care Technical Service Specialist Name Role Phone Santo Constantino MD Primary Care Provider [phone] Encounter Details Date Type Department Care Team (Late Contact Info) Description 10/12/2022 MyChart Message Enc [facility] Medical [address] [address] [employer], [facility] Provider Air Quality Message Social History Tobacco Use Types Packs/Day Years Used Date Smoking Tobacco: Former Cigarettes 1 33 1 987 - 04/04/2019 Smokeless Tobacco: Never Alcohol Use Standard Drinks/Week Comments Never 0 (1 standard drink = 0.6 oz pur e alcohol) AUDIT-C Answer Date Recorded Frequency of Alcohol Consumption Never 04/02/2018 Average Number of Drinks Not on file 018 Frequency of Binge Drinking Not on file 03/17 PHQ-2 Answer Date Recorded Patient Health Questionnaire-2 Score 0 08/19/2022 Comments No Sex and Gender Information Value Date Recorded Sex Assigned at Female 05/22/2024 11:06 AM SOURCE WATER PROTECTION SPECIALIST Legal Sex Female 7:23 PM CDT Gender Identity Not on file Sexual Orientation Not on file documented as of this encounter Plan of Treatment Upcoming Encounters Date Type Department Care Team (Late Contact Info) Description 11/12/2024 8:20 AM CDT Office Visit [facility] Medical [facility] Medicine [place] [id number] [place] [address] [place] [address] [place] [address] 11/19/2024 1:00 PM CDT Office Visit [facility] Group Multispecialty Care - [facility] [address] [facility], [address] [place] [address] Mayur Connolly MD [address] [place] [address] documented as of this encounter Goals Goal Patient Goal Type Associated Problems Recent Progress Patient-Stated? Author HOME TO [facility] Nel Herrera RN documented as of this encounter Visit Diagnoses Not on filedocumented in this encounter Additional Health Concerns Infection Onset Date Last Indicated Resolved Time COVID-19 Rule Out 05/23/2024 05/23/2024 05/23/2024 3:35 PM SOURCE WATER PROTECTION SPECIALIST Assessment Noted Time PHQ-9 Depression Total Score: 2 12/25/19 22 2:12 PM CDT documented as of this encounter Care Teams Technical Service Specialist Relationship Specialty [place] [address] [place] [address] PCP - General FAMILY PRACTICE 12/11/19 documented as of this encounter
--- OUTSIDE RECORDS SUMMARY | 2024-10-22 12:51 | XMS_ITS | Encounter Summary ---
Author Organization [facility] Address [address] [place] [address] Care Team Providers Care Fine Jewelry Sales Associate Name Role Phone Colton Dugan MD Primary Care Provider [phone] Santo Constantino MD Primary Care Provider [phone] Encounter Details Date Type Department Care Team (Late Contact Info) Description 09/22/2018 Abstract [facility] CONVERSION [address] [place] [address] , Generic MD Varghese Social History Tobacco Use Types Packs/Day Years Used Date Smoking Tobacco: Former Smokeless Tobacco: Never Alcohol Use Standard Drinks/Week Comments No 0 (1 standard drink = 0.6 oz pur e alcohol) AUDIT-C Answer Date Recorded Frequency of Alcohol Consumption Never 04/02/2018 Average Number of Drinks Not on file 018 Frequency of Binge Drinking Not on file 03/17 Comments Unknown Sex and Gender Information Value Date Recorded Sex Assigned at Female 05/22/2024 11:06 AM BAILER OPERATORS SUPERVISOR Legal Sex Female 7:23 PM CDT Gender Identity Not on file Sexual Orientation Not on file documented as of this encounter Plan of Treatment Upcoming Encounters Date Type Department Care Team (Late Contact Info) Description 11/12/2024 8:20 AM CDT Office Visit [facility] Group Family & Internal Medicine [facility] [address] [place] [address] [place] [address] [place] [address] 11/19/2024 1:00 PM CDT Office Visit [facility] Multispecialty Care - [facility] [address] [facility], [address] [place] [address] Mayur Connolly MD [address] [place] [address] documented as of this encounter Visit Diagnoses Not on filedocumented in this encounter Additional Health Concerns Infection Onset Date Last Indicated Resolved Time C. difficile 11/23/2016 11/23/2016 12/09/2019 12:4 1 PM CDT COVID-19 Rule Out 04/02/2020 04/02/2020 04/03/2020 5:27 PM BAILER OPERATORS SUPERVISOR COVID-19 Rule Out 06/27/2020 06/27/2020 06/28/2020 10:26 AM CDT COVID-19 Rule Out 05/23/2024 05/23/2024 05/23/2024 3:35 PM BAILER OPERATORS SUPERVISOR documented as of this encounter Care Teams Fine Jewelry Sales Associate Relationship Specialty Start Date End Date Colton Dugan MD [address] [place] [address] PCP - General FAMILY PRACTICE 12/08/19 12/10/19 [place] [address] [place] [address] PCP - General FAMILY PRACTICE 12/11/19 documented as of this encounter
--- OUTSIDE RECORDS SUMMARY | 2024-10-22 12:51 | XMS_ITS | Clinical Summary ---
Author Organization [facility] Address [address] [place] [address] Care Team Providers Care Distribution Spec Name Role Phone Santo Constantino MD Primary Care Provider Allergies Active Allergy Reactions Criticality Noted Date Comments Ciprofloxacin Rash,Swelling Medium 08/26/2015 States has had orally and tolerated fine IV only, swelling, redness and itching at IV site States has had orally and tolerated fine. Tolerates IV dose IV only, swelling, redness and itching at IV site States has had orally and tolerated fine Ketorolac Unknown Medium 04/05/2015 Can tolerate Injection, but not oral Nsaids GI Upset,Other (see comment),Unknown,Calderon ng Medium 12/04/2012 esophagitis crohns Sulfa Antibiotics Anaphylaxis High 04/02/2018 Tolmetin Swelling,Other (see comment) High 01/20/2013 esophagitis Medications albuterol sulfate HFA 108 (90 Base) MCG/ACT inhaler Inhale 2 puffs into the lungs every 6 (six) hours as needed. 05/10/19 17 Active VRAYLAR 4.5 MG Cap Take 1 tablet by mouth daily. 10/09/19 21 Active MAPAP 500 MG Cap TAKE 1 CAPSULE BY MOUTH EVERY 6 HOURS NEEDED FOR PAIN 12/17/19 22 Active omeprazole (PRILOSEC) 40 MG capsuleIndications :Higgins's esophagus without dysplasia Take 1 capsule (40 mg total) by mouth daily. 90 capsule 07/29/19 23 Active naloxone (NARCAN) 4 MG/0.1ML nasal spray 03/16/20 22 Active fluticasone-salmet agustin (ADVAIR HFA) 115-21 MCG/ACT inhalerIndications :Mild intermittent asthma without complication (HHS/HCC) Inhale 2 puffs into the lungs 2 (two) times daily. 12 g 5 07/27/19 24 Active hydrOXYzine (ATARAX) 50 MG tabletIndications: Anxiety Take 1 tablet (50 mg total) by mouth every 6 (six) hours as needed for Itching. 120 tablet 5 09/14/19 24 Active ezetimibe (ZETIA) 10 MG tabletIndications: Other hyperlipidemia Take 1 tablet (10 mg total) by mouth daily. 90 tablet 1 12/05/19 24 Active dicyclomine (BENTYL) 20 MG tablet Take 1 tablet (20 mg total) by mouth every 6 (six) hours. 20 tablet 01/19/20 24 Active mirtazapine (REMERON) 7.5 MG Tab tablet 1 tablet (7.5 mg total). 01/02/20 24 Active SUMAtriptan (IMITREX) 100 MG tabletIndications: Other migraine without status migrainosus, not intractable Take 1 tablet at onset of symptoms, may take 1 tablet 2 hours later. Max of 2 tablets in 24-hour period. 9 tablet 3 02/12/20 24 Active cyclobenzaprine (FLEXERIL) 5 MG tablet Take 1 tablet (5 mg total) by mouth 3 (three) times daily as needed for Muscle Spasms. 02/24/20 24 Active buPROPion XL (WELLBUTRIN XL) 150 MG 24 hr tabletIndications: Encounter for tobacco use cessation counseling Take 1 tablet (150 mg total) by mouth daily. 90 tablet 1 04/19/19 25 Active ondansetron (ZOFRAN-ODT) 4 MG disintegrating tabletIndications: Nausea with vomiting Take 1 tablet (4 mg total) by mouth every 6 (six) hours as needed for Nausea. 20 tablet 05/14/19 25 Active lamoTRIgine (LAMICTAL) 100 MG tablet 05/07/19 25 Active predniSONE (DELTASONE) 20 MG tabletIndications: Acute bronchitis, unspecified organism Take two tablets once a day for five days 10 tablet 05/23/19 25 Active ipratropium (ATROVENT) 0.02 % nebulizer solutionIndication s:Acute bronchitis, unspecified organism Take 2.5 mLs (500 mcg total) by nebulization 4 (four) times daily. 300 mL 1 05/24/19 25 Active fluconazole (DIFLUCAN) 150 MG tabletIndications: Yeast infection Take 1 tablet by mouth today, may repeat dose in 3 days if symptoms persist. 2 tablet 06/20/19 25 Active HYDROcodone-acetam inophen (NORCO) 10-325 MG tabletIndications: Chronic Pain Take 1 tablet by mouth every 6 (six) hours as needed for Pain. Indications: Chronic Pain 120 tablet 09/29/19 25 Active HYDROcodone-acetam inophen (NORCO) 10-325 MG tabletIndications: Chronic Pain Take 1 tablet by mouth every 6 (six) hours as needed for Pain. Indications: Chronic Pain 120 tablet 08/30/19 25 025 Discontin ued(Reord er) Active Problems Problem Noted Date Diagnosed Date Higgins's esophagus without dysplasia 06/01/2020 Overview (06/01/2020): Added automatically from request for surgery [id number] Crohn's disease with complic ation, unspecified gastrointestinal tract location ([facility]) 06/01/2020 Overview (06/01/2020): Added automatically from request for surgery [id number] Weight loss 06/01/2020 Overview (06/01/2020): Added automatically from request for surgery [id number] Diarrhea 06/01/2020 Overview (06/01/2020): Added automatically from request for surgery [id number] Enteritis 12/08/2019 Current tear of medial cartilage or meniscus of knee 06/19/2019 Enthesopathy of hip region 06/19/2019 Injury of lower limb 06/19/2019 Labral tear of hip, degenerative 09/06/2018 Overview (10/14/2020): Added automatically from request for surgery [id number] Added automatically from request for surgery [id number] Anxiety 04/19/2018 Smoker 02/26/2018 Overview (10/14/2020): Overview: Current Current Overview: Current Current Bipolar 1 disorder, manic, moderate ([facility]) 05/27/2015 DDD (degenerative disc disease), lumbar 05/08/19 16 Crohn's disease of large int estine with complication ([facility]) 05/08/2015 Anemia 04/07/2015 Functional abdominal pain syndrome 03/10/2015 Functional diarrhea 03/09/2015 Chronic pain 02/09/2015 Difficulty in swallowing 01/20/2015 GERD (gastroesophageal reflux disease) 5 Chest pain at rest 11/13/2014 Sensation of feeling hot 07/29/2014 Chronic lower back pain 07/17/2014 Crohn's disease ([facility]) 05/09/2014 Bipolar 1 disorder ([facility]) 05/09/2014 Other depressive disorder 04/16/2013 Bronchial asthma ([facility]) 03/06/2013 Hypercholesterolemia 03/06/2013 Migraine 03/06/2013 Schizoaffective disorder, bipolar type ([facility]) 03/06/2013 Other hyperlipidemia 06/25/2012 Resolved Problems Problem Noted Date Diagnosed Date Resolved Date Chronic obstructive pulmonar y disease ([facility]) 01/01/2015 10/14/2020 Knee pain 07/17/2014 10/14/2020 Encounters Date Type Department Care Team Description 10/10/2024 Scan [facility] HEALTH INFO SRVCS Scanned, Doc Med Group Image (SCAN) from Last 3 Months Immunizations Immunization Administration Dates Next Due Fluzone 6 Months+ Quad (0.5 mL Prefilled Syringe) 12/14/2019 Influenza (Generic) 01/15/2015,01/15/2013,2012 Influenza Adult (Generic) 03/02/2022,03/2021,02/12/2016,2011 PFIZER COVID-19 (ORIGINAL FORMULATION, PURPLE CAP) mRNA, LNP-S, PF, 30 MCG/0.3 ML DOSE 03/09/2021,07/07/2020,2020 PFIZER COVID-19 BIVALENT (12 +) mRNA, LNP-S, PF, 30 MCG/0.3 ML DOSE 03/30/2022 Pneumococcal (Pneumovax 23) 02/23/2015, 1 Shingrix 03/30/2022 Family History Medical History Relation Comments Arthritis Father Heart Disease Father No Known Problems Mother Breast Cancer Paternal Aunt Emphysema Paternal Grandfather Relation Status Comments Father Alive Mother Alive Paternal Aunt Paternal Grandfather Social History Tobacco Use Types Packs/Day Years Used Date Smoking Tobacco: Former Cigarettes 1 33 1 987 - 04/04/2019 Passive Smoke Exposure: Past Smokeless Tobacco: Never Tobacco Cessation:Counseling Given: No Alcohol Use Standard Drinks/Week Comments Never 0 (1 standard drink = 0.6 oz pur e alcohol) AUDIT-C Answer Date Recorded Frequency of Alcohol Consumption Never 04/02/2018 Average Number of Drinks Not on file 018 Frequency of Binge Drinking Not on file 03/17 PHQ-2 Answer Date Recorded Patient Health Questionnaire-2 Score 0 02/01/2024 Comments No Sex and Gender Information Value Date Recorded Sex Assigned at Female 05/22/2024 11:06 AM IN HOUSE CRA Legal Sex Female 7:23 PM CDT Gender Identity Not on file Sexual Orientation Not on file Last Filed Vital Signs Vital Sign Reading Time Taken Comments Blood Pressure 123/82 05/23/2024 2:54 PM IN HOUSE CRA Pulse 62 05/23/2024 2:54 PM IN HOUSE CRA Temperature 36.6 C (97.9 F) 05/23/2024 2:54 PM IN HOUSE CRA Respiratory Rate 16 05/23/2024 2:54 PM IN HOUSE CRA Oxygen Saturation 95% 05/23/2024 2:54 PM IN HOUSE CRA Inhaled Oxygen Concentration - - Weight 65.3 kg (144 lb) 05/23/2024 2:54 PM IN HOUSE CRA Height 170.2 cm (5' 7) 05/23/2024 2:54 PM IN HOUSE CRA Body Mass Index 22.55 05/23/2024 2:54 PM IN HOUSE CRA Plan of Treatment Upcoming Encounters Date Type Department Care Team (Late st Contact Info) Description 11/12/2024 8:20 AM CDT Office Visit [facility] Medical Group Family & Internal Medicine [facility] [address] [place] [address] [place] [id number] [place] [address] 11/19/2024 1:00 PM CDT Office Visit [facility] Medical Group Multispecialty Care - [address], [address] [place] [phone] Mayur Connolly MD [address] [place] [address] Health Maintenance Due Date Last Done Comments Annual Physical 06/15/1974 Hepatitis C 06/15/1989 Hepatitis B Vaccines (1 of 3 - 19+ 3-dose series) 06/15/1990 Pneumococcal Vaccine: 50+ Years (2 of 2 - PCV) 02/24/2016 02/23/2015, 12/16/2010 Lung Cancer Screening 06/15/2021 Zoster Vaccines (2 of 2) 05/25/2022 03/30/2022 Mammogram Screening 11/05/2022 11/05/2020 EGD-Higgins's Surveillance 07/01/2023 06/30/2020 COVID-19 Vaccine ( season) 2023 03/30/2022, 03/09/2021, 07/07/2020, Additional history exists PHQ-2 (Physician [place]) 04/17/2024 02/01/2024 DTaP, Tdap and Td Vaccines (1 - Tdap) 12/17/2028 Postponed from 06/15/1990 (Per Provider Recommendation) Colorectal Cancer Screening Colonoscopy (10 Years) 06/30/2030 06/30/2020 Colorectal Cancer Screening FIT/FOBT (1 Year) Discontinued 03/31/2020, 02/10/2016 Meningococcal B Vaccine Aged Out No l onger eligible based on patient's age to complete this topic Meningococcal Vaccine Aged Out No alberto martin eligible based on patient's age to complete this topic RSV Immunizations Under 20 Months Aged Out No longer eligible based on patient's age to complete this topic Goals Goal Patient Goal Type Associated Problems Recent Progress Patient-Stated? 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 Procedure Name Priority Date/Time Associated Diagnosis Comments IMAGE GENERIC 10/10/2024 MG SCREENING W GENE JANE DIGI Routine 11/05/2020 2:40 PM CDT Encounter for screening mammogram for malignant neoplasm of breast COLONOSCOPY/EGD GENERIC (SCAN ORDER) 06/30/2020 OCCULT BLOOD, FECES STAT 03/31/2020 3 :30 PM IN HOUSE CRA from Last 3 Months or Most Recently Relevant to Health Maintenance Results * IMAGE GENERIC (10/10/2024) Anatomical Region Laterality Modality Other 10/10/2024 us Doc Med Group Scanned SCANNING Final Resu lt * MG SCREENING W GENE JANE DIGI (11/05/2020 2:40 PM CDT) Anatomical Region Laterality Modality Breast Bilateral Mammography 11/05/2020 3:38 PM CDT Narrative 11/05/2020 3:39 PM CDT EXAMINATION: MG SCREENING W GENE JANE DIGI WITH TOMOSYNTHESIS AND COMPUTER-AIDED DETECTION (CAD) DATE: 11/05/2020 2:22 PM CLINICAL HISTORY: screening . Family history breast CA: Aunt. COMPARISON STUDIES: Baseline exam. FINDINGS: Bilateral CC, MLO, 2-D and 3-D acquisitions. Scattered residual fibroglandular parenchyma . . No evidence of dominant mass, architectural distortion, skin thickening, nipple retraction or suspicious clusters of microcalcifications. Benign appearing calcifications noted. CONCLUSION: 1. BI-RADS Category 2 - benign findings. Annual screening mammography recommended. 2. BREAST TISSUE COMPOSITION: There are scattered areas of fibroglandular density. MQSA BI-RADS Categories: Category 0 - needs additional imaging evaluation. Category 1 - negative. Category 2 - benign findings. Category 3 - probably benign findings, but short interval follow-up is recommended. Category 4 - suspicious abnormality and biopsy should be considered though the lesion may well be benign. Category 5 - highly suggestive of malignancy and appropriate action should be taken. A) A negative report should not delay a biopsy if a dominant or clinically suspicious mass is present. B) Adenosis and dense breasts may obscure an underlying neoplasm. C) Study interpreted with computer aided detection. Voice recognition software utilized. Referred By: WELLINGTON GOODWIN Interpreted By: Dane Boateng, 11/05/2020 3:38 PM us Wellington Goodwin BOOK CRITIC-BC MAMMO Final Re sult * COLONOSCOPY/EGD GENERIC (06/30/2020) 06/30/2020 Narrative 06/30/2020 Ordered by an unspecified provider. us Documents Scanned SCANNING Final Result * OCCULT BLOOD, FECES (03/31/2020 3:30 PM IN HOUSE CRA) OCCULT BLOOD FECAL NEGATIVE NEGATIVE 03/31/2020 3:50 PM IN HOUSE CRA [facility] STOOL SPECIMEN / Unknown 03/31/2020 3:30 PM IN HOUSE CRA us Jaun Arzola MD BODY FLUIDS AND STOOLS ORDERABLE S Final Result [facility] [address] [place] [address], [place] [phone] from Last 3 Months or Most Recently Relevant to Health Maintenance Insurance MEDICARE Advance Directives Documents on File Type Date Recorded Patient Promotions Associate Expl anation Advance Directives and Living Will 06/30/2020 12:00 AM ADVANCED DIRECTIVES Advance Directives and Living Will 12/09/2019 9:05 AM 04/06/15 HEALTH CARE POA Advance Directives and Living Will 12/19/2017 12:00 AM POWER OF PLASTER APPLICATOR FO R HEALTH CARE Advance Directives and Living Will 12/19/2017 12:00 AM POWER OF PLASTER APPLICATOR FO R HEALTH CARE Advance Directives and Living Will 11/01/2017 12:00 AM POWER OF PLASTER APPLICATOR FO R HEALTH CARE Advance Directives and Living Will 11/01/2017 12:00 AM POWER OF PLASTER APPLICATOR FO R HEALTH CARE Advance Directives and Living Will 10/31/2017 12:00 AM POWER OF PLASTER APPLICATOR FO R HEALTH CARE Advance Directives and Living Will 10/31/2017 12:00 AM POWER OF PLASTER APPLICATOR FO R HEALTH CARE Advance Directives and Living Will 10/08/2017 12:00 AM POWER OF PLASTER APPLICATOR FO R HEALTH CARE Advance Directives and Living Will 10/08/2017 12:00 AM POWER OF PLASTER APPLICATOR FO R HEALTH CARE Advance Directives and Living Will 09/07/2017 12:00 AM POWER OF PLASTER APPLICATOR FO R HEALTH CARE Advance Directives and Living Will 09/07/2017 12:00 AM POWER OF PLASTER APPLICATOR FO R HEALTH CARE Advance Directives and Living Will 11/27/2016 12:00 AM POWER OF PLASTER APPLICATOR FO R HEALTH CARE Advance Directives and Living Will 11/27/2016 12:00 AM POWER OF PLASTER APPLICATOR FO R HEALTH CARE Advance Directives and Living Will 10/20/2016 12:00 AM POWER OF PLASTER APPLICATOR FO R HEALTH CARE Advance Directives and Living Will 10/20/2016 12:00 AM POWER OF PLASTER APPLICATOR FO R HEALTH CARE Advance Directives and Living Will 10/13/2016 12:00 AM POWER OF PLASTER APPLICATOR FO R HEALTH CARE Advance Directives and Living Will 10/13/2016 12:00 AM POWER OF PLASTER APPLICATOR FO R HEALTH CARE Advance Directives and Living Will 10/02/2016 12:00 AM POWER OF PLASTER APPLICATOR FO R HEALTH CARE Advance Directives and Living Will 10/02/2016 12:00 AM POWER OF PLASTER APPLICATOR FO R HEALTH CARE Advance Directives and Living Will 10/02/2016 12:00 AM POWER OF PLASTER APPLICATOR FO R HEALTH CARE Advance Directives and Living Will 10/02/2016 12:00 AM POWER OF PLASTER APPLICATOR FO R HEALTH CARE Advance Directives and Living Will 09/14/2016 12:00 AM POWER OF PLASTER APPLICATOR FO R HEALTH CARE Advance Directives and Living Will 09/14/2016 12:00 AM POWER OF PLASTER APPLICATOR FO R HEALTH CARE Advance Directives and Living Will 09/06/2016 12:00 AM POWER OF PLASTER APPLICATOR FO R HEALTH CARE Advance Directives and Living Will 09/06/2016 12:00 AM POWER OF PLASTER APPLICATOR FO R HEALTH CARE Advance Directives and Living Will 09/06/2016 12:00 AM POWER OF PLASTER APPLICATOR FO R HEALTH CARE Advance Directives and Living Will 09/06/2016 12:00 AM POWER OF PLASTER APPLICATOR FO R HEALTH CARE Advance Directives and Living Will 05/17/2016 12:00 AM POWER OF PLASTER APPLICATOR FO R HEALTH CARE Advance Directives and Living Will 05/17/2016 12:00 AM POWER OF PLASTER APPLICATOR FO R HEALTH CARE Advance Directives and Living Will 03/02/2016 12:00 AM POWER OF PLASTER APPLICATOR FO R HEALTH CARE Advance Directives and Living Will 03/02/2016 12:00 AM POWER OF PLASTER APPLICATOR FO R HEALTH CARE Advance Directives and Living Will 01/18/2016 12:00 AM POWER OF PLASTER APPLICATOR FO R HEALTH CARE Advance Directives and Living Will 01/18/2016 12:00 AM POWER OF PLASTER APPLICATOR FO R HEALTH CARE Advance Directives and Living Will 11/25/2015 12:00 AM POWER OF PLASTER APPLICATOR FO R HEALTH CARE Advance Directives and Living Will 11/25/2015 12:00 AM POWER OF PLASTER APPLICATOR FO R HEALTH CARE * Full Code (Latest Code Status on File) Date Activated Date Inactivated Comments 12/08/2019 5:13 PM 12/10/2019 4:21 PM * Full Code Date Activated Date Inactivated Comments 12/08/2019 4:26 PM 12/08/2019 5:13 PM Care Teams Distribution Spec Relationship Specialty [place] [address] [place] [address] PCP - General FAMILY PRACTICE 12/11/19
--- OUTSIDE RECORDS SUMMARY | 2024-10-22 12:51 | XMS_ITS | Encounter Summary ---
Author Organization [facility] Address [address] [place] [address] Care Team Providers Care Vocational Rehabilitation Administrator Name Role Phone Santo Constantino MD Primary Care Provider [phone] Encounter Details Date Type Department Care Team (Late Contact Info) Description 09/26/2022 [place] Message Enc [facility] Multispecialty Care - [facility] [address] [facility] [address], [address] [place] [address] [facility] Provider Time Social History Tobacco Use Types Packs/Day Years [...] Sex Assigned at Female 05/22/2024 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 AM 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 Legal Sex Female 7:23 PM CDT Gender Identity Not on file Sexual Orientation Not on file documented as of this encounter Plan of Treatment Upcoming Encounters Date Type Department Care Team (Late Contact Info) Description 11/12/2024 8:20 AM CDT Office Visit [facility] Family & Internal Medicine [address] [place] [phone] [place] [address] [place] [address] 11/19/2024 1:00 PM CDT Office Visit [facility] Medical Group Multispecialty Care - [facility] [address] [facility], [address] [place] [phone] Mayur Connolly MD [address] [place] [address] documented as of this encounter Goals Goal Patient Goal Type Associated Problems Recent Progress Patient-Stated? Author HOME TO [facility] Nel Herrera RN documented as of this encounter Visit Diagnoses Not on filedocumented in this encounter Additional Health Concerns Infection Onset Date Last Indicated Resolved Time COVID-19 Rule Out 05/23/2024 05/23/2024 05/23/2024 3:35 PM 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 Assessment Noted Time PHQ-9 Depression Total Score: 2 12/25/19 22 2:12 PM CDT documented as of this encounter Care Teams Vocational Rehabilitation Administrator Relationship Specialty Start [place] [address] [place] [address] PCP - General FAMILY PRACTICE 12/11/19 documented as of this encounter
[2024-10-22] MEDS: HYDROmorphone HCL INJ (*CRX) 2 MG/ML VIAL 1 MG IV PUSH (13:32)
[2024-10-22] MEDS: ONDANSETRON INJ 4 MG/2 ML VIAL IV PUSH (13:32)
[2024-10-22] MEDS: LACTATED RINGERS 2,000 ML 999 ML IV CONT (13:32)
--- NOTE | 2024-10-22 13:39 | ED.GENADULT ---
HPI - General Adult General Chief complaint: Abdominal Pain Stated complaint: I'm having a crohn's flare up Time Seen by Provider: 10/22/24 12:27 History of Present Illness HPI narrative: 54-year-old female with history of Crohn's disease that follows up with Dr. Puente at [place] presents to the emergency department for evaluation for nausea vomiting diarrhea and lower abdominal cramping has been worsening since yesterday. Patient denies any blood in her stool. Related Data Home Medications ?Medication ?Instructions ?Recorded ?Confirmed ?Last Taken ?Type hydrocodone 10 mg-acetaminophen 1 tablet PO DIRECTED 09/23/19 05/01/21 Unknown History 325 mg tablet lamotrigine 25 mg tablet 25 mg PO DAILY 12/29/20 05/01/21 Unknown History omeprazole 40 mg capsule,delayed 40 mg PO DAILY 12/29/20 05/01/21 Unknown History release cariprazine 4.5 mg capsule 4.5 mg PO DAILY 05/01/21 05/01/21 Unknown History (Vraylar) albuterol 90 mcg-budesonide 80 2 inh inhalation DAILY PRN 10/10/24 Unknown History mcg/actuation HFA aerosol inhaler shortness of breath hydroxyzine HCl 50 mg tablet mg 10/10/24 Unknown History mirtazapine 7.5 mg tablet mg 10/10/24 Unknown History Allergies Allergy/AdvReac Type Severity Reaction Status Date / Time ciprofloxacin Allergy Unknown Rash Verified 10/22/24 11:45 Sulfa (Sulfonamide Allergy Unknown Anaphylaxis Verified 10/22/24 11:45 Antibiotics) ketorolac AdvReac Intermediate Nausea Verified 10/22/24 11:45 NSAIDS (Non-Steroidal AdvReac Intermediate Nausea Verified 10/22/24 11:45 Anti-Inflamma Review of Systems Review of Systems: All systems reviewed & are unremarkable except as noted in HPI and below PMFSH Past Medical History Medical History (Updated 10/22/24 @ 15:05 by Mark Cowart MD) C. difficile diarrhea Anemia Schizoaffective disorder Previous known suicide attempt x2 Anxiety Depression History of bipolar disorder History of osteoporosis Arthritis UTI (urinary tract infection) Fibroids HPV (human papilloma virus) anogenital infection Ovarian cancer GERD (gastroesophageal reflux disease) IBS (irritable bowel syndrome) Pancreatitis Colitis Crohn's disease Pneumonia Bronchitis Asthma COPD (chronic obstructive pulmonary disease) HLD (hyperlipidemia) History of angina DJD (degenerative joint disease) Migraine Surgical History Surgical History H/O Spinal surgery T12 cartilage removed H/O right knee surgery H/O: hysterectomy History of cholecystectomy History of tonsillectomy Family History Family History Sibling Depression Hypertension Family history of elevated blood lipids Father Family history of arthritis Other Family history of anemia Family history of mental disorder Family history of thyroid disease Social History Social History Smoking status: Current every day smoker Gender identity (if verbalized by the patient): Female Exam Narrative: APPEARANCE: Well appearing, no pain, no distress, well-nourished. HEAD: normocephalic, atraumatic. EYES: PERRLA/EOMI, conjunctivae clear. NOSE: Normal no drainage EARS:TMS clear with good light reflex. THROAT: Pharynx clear, no exudate. NECK: Supple. No adenopathy, no masses. RESPIRATORY: Airway patent, respirations nonlabored. Clear to auscultation bilaterally, no rales, rhonchi, wheezing. CARDIOVASCULAR: Regular rate and rhythm without murmurs rubs or gallops. ABDOMINAL: Normal bowel sounds, nondistended, diffuse abdominal tenderness to palpation MUSCULOSKELETAL: Moves all extremities. Strength/ROM intact, No edema, No calf tenderness. NEURO: Alert. Cranial nerves II through XII intact. Grossly intact SKIN: Warm, dry. Normal Color Course Vital Signs Vital signs: Vital Signs Pulse Oximetry 100 10/22/24 11:49 Temperature 98.0 F 10/22/24 14:04 Pulse Rate 64 10/22/24 15:18 Respiratory Rate 14 10/22/24 15:18 Blood Pressure 127/81 10/22/24 15:18 Pulse Oximetry 100 10/22/24 15:18 Oxygen Delivery Room Air 10/22/24 11:58 Medical Decision Making [facility] Narrative Medical decision making narrative: 54-year-old female with history of Crohn's disease presenting the emergency department for evaluation for nausea vomiting and diarrhea. Patient is currently afebrile with no leukocytosis hemoglobin of 14.2. Patient has no acute abnormalities on her CMP UA is negative for infection. CT scan showed no acute abdominal pelvic abnormality. Patient did feel improved with rehydration. Patient was advised to follow a clear liquid diet for the next few days, continue have follow-up with GI and patient will be provided Zofran for nausea control. All questions concerns were addressed. Differential Diagnosis Differential Diagnosis: Colitis, diverticulitis, enteritis, nausea vomiting diarrhea, dehydration, UTI Vital Signs Vital Signs: Vital Signs Pulse Oximetry 100 10/22/24 11:49 Temperature 98.0 F 10/22/24 14:04 Pulse Rate 64 10/22/24 15:18 Respiratory Rate 14 10/22/24 15:18 Blood Pressure 127/81 10/22/24 15:18 Pulse Oximetry 100 10/22/24 15:18 Oxygen Delivery Room Air 10/22/24 11:58 Lab Data Lab results reviewed: Yes I reviewed the patient's lab results. 10/22/24 12:02 10/22/24 12:02 Labs: Lab Results 10/22/24 Range/Units 12:02 WBC 6.0 (4.5-10.0) K/mm3 RBC 4.56 (4.2-5.4) M/mm3 Hgb 14.2 (12.0-15.0) g/dL Hct 42.2 (37.0-47.0) % MCV 92.5 (80-100) fl MCH 31.1 (26-34) pg MCHC 33.6 (32-36) g/dl RDW 12.6 (11.5-14.5) % Plt Count 277 (150-375) k/mm3 MPV 9.2 (7.4-10.4) fl Immature Gran % (Auto) 0.2 (0-0.5) % Neut % (Auto) 38.3 L (45.5-73.1) % Lymph % (Auto) 52.0 H (18.3-44.2) % [place] % (Auto) 6.5 (2.6-8.5) % Eos % (Auto) 2.2 (0-4.4) % Baso % (Auto) 0.8 (0.2-1.2) % Lymph # (Auto) 3.13 (0.9-3.2) K/mm3 [place] # (Auto) 0.4 (0.1-0.6) K/mm3 Eos # (Auto) 0.1 (0-0.3) K/mm3 Baso # (Auto) 0.1 (0.0-0.1) K/mm3 Abs Immat Gran (auto) 0.01 (0.00-0.031) K/mm3 Absolute Neuts (auto) 2.3 (1.3-6.7) K/mm3 Absolute Nucleated RBC 0.000 (0.0-0.012) K/mm3 Nucleated RBC % 0.0 (0.0-0.2) % Sodium 139 (137-145) mmol/L Potassium 4.1 (3.4-5.0) mmol/L Chloride 105 (98-107) mmol/L Carbon Dioxide 26 (22-30) mmol/L Anion Gap 8 (4-12) mmol/L BUN 11 (7-17) mg/dL Creatinine 0.63 L (0.7-1.0) mg/dL Estim Creat Clear Calc Not Reportable Estimated GFR > 60 (59 - ) Glucose 98 (65-110) mg/dL Calcium 9.4 (8.4-10.2) mg/dL Total Bilirubin 0.3 (0.2-1.3) mg/dL AST 21 (14-36) U/L ALT 13 (6-35) U/L Alkaline Phosphatase 62 (38-126) U/L Total Protein 7.5 (6.3-8.2) g/dL Albumin 4.5 (3.5-5.1) g/dL Lipase 102 (23-300) U/L Urine Color Yellow (Yellow) Urine Appearance Clear (Clear) Urine pH 7.5 (5.0-9.0) Ur Specific Brule 1.008 (1.001-1.035) Urine Protein Negative (Negative) mg/dL Urine Glucose (UA) Negative (Negative) mg/dL Urine Ketones Negative (Negative) mg/dL Ur Blood (Man) Negative (Negative) Urine Nitrate Negative (Negative) Urine Bilirubin Negative (Negative) Urine Urobilinogen 0.2 (<2.0) mg/dL Add Ur Microanalysis Reviewed Leukocyte Esterase Rfl 1+ H (Negative) TANK/UL Urine RBC 0-2 (0-2) /hpf Urine WBC 0-5 (0-3) /hpf Ur Squamous Epith Cells None seen (Few) /hpf Urine Bacteria None seen /hpf Urine Casts 0-2 Imaging Data Radiologist's impression: Impressions Abdomen/Pelvis CT 10/22/24 13:59 Impression: No definite acute abnormality seen. Stable probable hepatic hemangioma. Discharge Plan Discharge Clinical Impression: Nausea vomiting and diarrhea Patient Disposition: Home Condition: Stable Instructions: Antibiotic Form, Clear Liquid Diet (ED), Abdominal Pain (ED) Additional Instructions: Clear liquid diet for the next 1-3 days. Zofran as needed for nausea control. Have close follow-up with your GI physician. If you have any worsening symptoms then please call or return to the emergency department. Patient Language: Macedonian Prescriptions: New ondansetron 4 mg tablet,disintegrating 4 mg PO Q8H PRN (Reason: nausea and vomiting) Qty: 14 0RF No Action hydrocodone-acetaminophen 10-325 mg tablet 1 tablet PO DIRECTED Vraylar 4.5 mg capsule 4.5 mg PO DAILY hydroxyzine HCl 50 mg tablet mirtazapine 7.5 mg tablet albuterol-budesonide 90-80 mcg/actuation HFA aerosol inhaler 2 inh inhalation DAILY PRN (Reason: shortness of breath) famotidine [Pepcid] 20 mg tablet 20 mg PO BID Qty: 10 0RF omeprazole 40 mg capsule,delayed release(DR/EC) 40 mg PO DAILY lamotrigine 25 mg tablet 25 mg PO DAILY Follow-up/Referrals: Dougie,Santo Dickerson MD [Primary Care Provider] -
[2024-10-22] MEDS: HYDROmorphone HCL INJ (*CRX) 2 MG/ML VIAL 0.5 MG IV PUSH (15:30)
== END 2024-10-22 15:37 | disposition home or self-care (01) ==
PROVIDERS: Emergency Medicine; Emergency Provider Emergency Medicine; PCP Family Medicine
DX: R11.2 Nausea with vomiting, unspecified (principal); R19.7 Diarrhea, unspecified; D64.9 Anemia, unspecified; F41.9 Anxiety disorder, unspecified; F32.A Depression, unspecified; M19.90 Unspecified osteoarthritis, unspecified site; Z87.440 Personal history of urinary (tract) infections; K21.9 Gastro-esophageal reflux disease without esophagitis; J44.9 Chronic obstructive pulmonary disease, unspecified; E78.5 Hyperlipidemia, unspecified; R82.998 Other abnormal findings in urine
CPT/HCPCS: 36415; 74177; 80053; 81001; 83690; 85025; 87086; 96361; 96374; 96375; 96376; 99284; J1171; J2405; J7120; Q9967

== ENCOUNTER 2024-11-20 10:50 | Emergency (ER) | payer MEDICARE, SELFPAY ==
--- NOTE | ~2024-11-20 | CT_ITS ---
EXAMINATION: CT abdomen pelvis w con DATE: 11/20/2024 12:40 INDICATION: Lower abdominal pain. Nausea, vomiting and diarrhea. History of Crohn's disease. TECHNIQUE: Computed tomography (CT) of the abdomen and pelvis was performed with 100 cc Omnipaque 350 intravenous contrast. The dose-length product was 195.24 mGy-cm. Automated exposure control and iter ative reconstruction technique were employed. COMPARISON: CT dated 10/22/2024. FINDINGS: Lung bases unremarkable. Heart size normal. No significant pleural or pericardial effusion. There is a small 1.6 cm hemangioma the right hepatic lobe in a subcapsular location. The spleen, alvarado creas, adrenal glands and kidneys are unremarkable. Status post cholecystectomy. No significant vascu lar abnormality. Retroaortic left renal vein. No acute osseous abnormality. Mild lumbar spondylosis. There is mild thickening of the transverse, descending and sigmoid colon with mucosal enhancement, co nsistent with colitis, most likely inflammatory or infectious. IMPRESSION: 1. Mild colitis, most likely inflammatory or infectious. Reviewed, dictated and finalized at location A.
[2024-11-20 10:51] VITALS: BP 119/84; PULSE 68; RESP 16; TEMP 36.5; O2SAT 100
--- OUTSIDE RECORDS SUMMARY | 2024-11-20 11:30 | XMS_ITS | Clinical Summary ---
Author Organization [facility] Address [address], [facility] [address] [place] [address] Phone Care Team Providers Care Clinical Programmer Name Role Phone Colton Dugan MD Primary Care Provider [phone] Allergies Active Allergy Reactions Criticality Noted Date [...] 72.6 kg (160 lb) 06/10/2019 7:00 AM LEAD FRONT DESK AGENT Height 167.6 cm (5' 6) 06/10/2019 7:00 AM LEAD FRONT DESK AGENT Body Mass Index 25.82 06/10/2019 7:00 AM LEAD FRONT DESK AGENT Plan of Treatment Health Maintenance Due Date Last Done Comments Hepatitis C Virus (HCV) Screening 1971 TdaP Immunization 1971 Hepatitis B Immunization (1 of 3 - 19+ 3-dose series) 06/15/1990 Cologuard 06/15/2016 Immunochemical Fecal Occult Blood 06/15/2016 Pneumococcal Immunization (5 0+ years) (2 of 2 - PCV) 06/15/2021 02/23/2015, 12/16/2010 Zoster Immunization (1 of 2) 06/15/2021 SARS-COV-2 Immunization ( season) 2023 03/09/2021, 07/07/2020, 2020 Colonoscopy 05/31/2024 05/31/2019, 10/25/2018, 05/25/2012 Colorectal Cancer Screening 05/31/2024 Influenza Immunization (#1) 2024 1011/2015, 01/15/2015, 01/14/2013 Respiratory Syncytial Virus (RSV) Immunization [...] to Health Maintenance Insurance [place] [address] Care Teams Clinical Programmer Relationship Specialty Start Date End Date Colton Dugan MD [address] [address] PCP - General Family Medicine 01/02/18
--- OUTSIDE RECORDS SUMMARY | 2024-11-20 11:30 | XMS_ITS | Encounter Summary ---
Author Organization [facility] Healthcare Address [address] [place] [address] Care Team Providers Care Pile Driver Operator Helper Name Role Phone Colton Dugan MD Primary Care Provider [phone] Reason for Visit * Reason Onset Date Comments Appointment 08/09/2018 Encounter Details Date Type Department Care Team (Late st Contact Info) Description 08/09/2018 Telephone [facility] [address] [facility] [address] [place] [address] Marilyn Schwartz MD [address] [facility] [address] [place] [address] Appointment Social History Tobacco Use Types Packs/Day Years Used Date Smoking Tobacco: Former Smokeless Tobacco: Never Alcohol Use Standard Drinks/Week Comments Yes 0 (1 standard drink = 0.6 oz pur e alcohol) Comments No Sex and Gender Information Value Date Recorded Sex Assigned at Not on file Legal Sex Female 5:21 PM VESSEL ORDINARY SEAMAN Gender Identity Female 05/03/2021 9:56 AM VESSEL ORDINARY SEAMAN Sexual Orientation Not on file Occupation Industry [...] on stairs Contact your local community or [facility] for information on exercise, fall prevention programs, or options for improving home safety. documented as of this encounter Visit Diagnoses Not on filedocumented in this encounter Additional Health Concerns Infection Onset Date Last Indicated Resolved Time C. difficile 08/14/2018 08/13/2018 documented as of this encounter Care Teams Pile Driver Operator Helper Relationship Specialty Start Date End Date Colton Dugan MD PCP - General Family Medicine 04/02/18 documented as of this encounter
--- OUTSIDE RECORDS SUMMARY | 2024-11-20 11:30 | XMS_ITS | Clinical Summary ---
Author Organization [facility] Address [address] [place] [address] Care Team Providers Care Sales Market Leader Name Role Phone Kodak Dillard MD Unavailable [phone] Maxwell Barrera DO Primary Care Provider Source Comments [facility],non-owned Affiliates and Associated Physician Practices is amultiple site organization consisting of ambulatory clinics and hospital sitesin [place], [place], [place] and [place]. This disclosure is being madepursuant to the Care Everywhere program and may not contain all information available regarding this patient. Last updated 18.[facility] Allergies Active Allergy Reactions Criticality Noted [...] on file Legal Sex Female 9:19 AM GOLD CUTTER Gender Identity Not on file Sexual Orientation Not on file Last Filed Vital Signs Vital Sign Reading Time Taken Comments Blood Pressure 115/75 03/10/2017 3:51 PM GOLD CUTTER Pulse 66 03/10/2017 3:51 PM GOLD CUTTER Temperature 36.9 C (98.5 F) 03/10/2017 1:51 PM GOLD CUTTER Respiratory Rate 16 03/10/2017 3:51 PM GOLD CUTTER Oxygen Saturation 100% 03/10/2017 3:51 PM GOLD CUTTER Inhaled Oxygen Concentration 21% 02/12/2016 5 :07 AM CDT Weight 59 kg (130 lb) 03/10/2017 1:51 PM GOLD CUTTER Height 171.5 cm (5' 7.5) 03/10/2017 1:51 PM GOLD CUTTER Body Mass Index 20.06 03/10/2017 1:51 PM GOLD CUTTER Plan of Treatment Health Maintenance Due Date [...] - 2023-2 5 season) 2023 INFLUENZA VACCINE (#1) 2024 6, 01/15/2015, 01/15/2013 HIB VACCINE Aged Out No [...] Immunoassay Negative Negative 02/10/2016 7:22 PM CDT [facility] Stool STOOL SPECIMEN / Unknown 02/10/2016 6:53 PM CDT 02/10/2016 7:06 PM CDT Sarah Isbell LENS GENERATING MACHINE TENDER-DOCTOR OF PODIATRIC MEDICINE LAB - MICROBIOLOGY ORD ERABLES Final Result Performing Organization Address City/State/[facility] Co de Phone Number [facility] [address] from Last 3 Months or Most [...] 11:24 PM 04/28/2015 5:23 PM Care Teams Sales Market Leader Relationship Specialty Start Date End Date Maxwell Barrera DO [address] [place] [address] PCP - General 10/16/18 Kodak Dillard MD [address] [place] [address] Pain Management Physical Medicine and Rehabilitation 07/03/15
--- OUTSIDE RECORDS SUMMARY | 2024-11-20 11:30 | XMS_ITS | Clinical Summary ---
Author Organization [facility] Address [address] [place] [address] Care Team Providers Care Telecommunications Specialist Name Role Phone Colton Dugan MD Primary Care Provider [phone] Allergies Active Allergy Reactions Criticality Noted Date [...] (09/06/2018): Added automatically from request for surgery [id number] Anxiety 04/19/2018 Chest pain at rest 04/19/2018 [...] later told pleurasy. Never followed up with Scalp Specialist. Pain MD feels it may be due to muscle spasms. No chest pain x 4-5 years. Took TNG once without any change in pain. cardiac w/u in ER negative. Higgins's esophagus Insomnia Migraines 2-3/week. Possib ly caused by barometric pressure Anxiety Hyperlipidemia well controlled with meds Asthma uses nebulizer 2 x week. More when high humidity COPD (chronic obstructive pu lmonary disease) last hospitalization 5 years ago Pneumonia last hospitalize d 2013 Chronic pain all over Crohn's disease (HCC) 2003 last July 2018 last flare up. Pinched nerve slightly limited turning head to left. but no limitation up, down and to right GERD (gastroesophageal reflux disease) well controlled with meds Urinary tract infection last inf ection 07/2018 Bipolar disorder 2003 well controlled with meds Depression 2003 well controlled with meds Arthritis Cancer (HCC) 2002 ovarian cancer, radiation for six months and DARVIN Anesthesia Pt. reports she wakes up crying. Joint pain right hip Mid back pain Family History Medical History Relation Name Comments Cancer Cousin Family history of malignant neoplasm - (Added by Dwllr Conv) Arthritis Father Cancer Father Family history of malignant neoplasm - (Added by TW Conv) Clotting disorder Father Hypertension Father Stroke Father Arthritis Mother Clotting disorder Mother Lung disease Mother Mental illness Mother Heart disease Other 1 Heart Disease - (Added by TW Conv) Hypertension Other 2 Hypertension - (Added by TW Conv) Cancer Other 3 Cancer - (Added by Dwllr Conv) Cancer Other 4 Family history of [...] on file Legal Sex Female 5:21 PM MARINE CARGO SURVEYOR Gender Identity Female 05/03/2021 9:56 AM MARINE CARGO SURVEYOR Sexual Orientation Not on file Occupation Industry [...] Pain Care Plan Chronic Care Management No Griecl Ivory, EMELINA Note: Problem: Chronic Pain Goals: 1. Minimize further functional decline 2. Maximize quality of life 3. Control pain Strategies: - Activity/exercise program recommendation - Conservative stepwise pain medicine strategy with multi-disciplinary approach - Recommend healthy lifestyle strategies and compensatory methods as needed Reduce the likelihood of falling Lifestyle Gricel Stiles, EMELINA Note: Below are four things you can [...] home safety. Medical Devices Implanted Type Area Writer Editor Device Identifier Shelf Expiration Date Model / Serial / Lot [employer] [id number] [facility] K[employer] Poultry Husbandry Worker Lock [place] Suture Labrum - [id number] Implanted:Qty: 1 on 11/28/2018 by Manuela Graham MD at [facility] Right: Hip [employer] [id number] 01/11/2020 [id number] / / [id number] [employer] [id number] [employer] K[employer] P[employer] Husbandry Worker Lock [place] Suture Labrum - [id number] Implanted:Qty: 1 on 11/28/2018 by Manuela Graham MD at [facility] Right: Hip [employer] [id number] 01/11/2020 [id number] / / [id number] [employer] [id number] C[employer] K[employer] Poultry Husbandry Worker Lock [place] Suture Labrum - [id number] Implanted:Qty: 1 on 11/28/2018 by Manuela Graham MD at [facility] Right: Hip [employer] [id number] 09/20/2019 [id number] / / [id number] Additional Health Concerns Infection Onset Date Last Indicated C. difficile 08/14/2018 08/13/2018 Insurance MEDICARE IDPA [facility] MEDICARE MEDICARE MEDICARE IDPA Care Teams Telecommunications Specialist Relationship Specialty Start Date End Date Colton Duagn MD PCP - General Family Medicine 04/02/18
--- OUTSIDE RECORDS SUMMARY | 2024-11-20 11:30 | XMS_ITS ---
Author Organization [facility] Address [address] [place] [address] Care Team Providers Care Banking Representative Name Role Phone Colton Dugan MD Primary Care Provider [phone] Active Problems Problem Noted Date Diagnosed Date Current tear of medial cartilage or meniscus of knee 06/19/2019 Enthesopathy of hip region 06/19/2019 Injury of lower extremity 06/19/2019 Knee pain 06/19/2019 Osteoarthritis of knee 06/19/2019 Pain in limb 06/19/2019 Labral tear of hip, degenerative 09/06/2018 Overview (09/06/2018): Added automatically from request for surgery [id number] Anxiety 04/19/2018 Chest pain at rest 04/19/2018 [...]
--- OUTSIDE RECORDS SUMMARY | 2024-11-20 11:30 | XMS_ITS | Patient Health Record ---
Author Organization [facility] [employer] Address [address] [facility] [address] [facility] [address] [address] Support Name Relationship Address Phone GERMAN LOUIS Guarantor Unknown [phone] Reason For Referral No Information Plan Of Treatment No Information
--- OUTSIDE RECORDS SUMMARY | 2024-11-20 11:30 | XMS_ITS | Patient Health Record ---
Author Organization [facility] Address [address] [place], [place] [address] Care Team Providers Care American Indian Studies Professor Name Role Phone JESUS STRINGER Unavailable [phone] Santo Constantino Unavailable Unavailable Reason For Referral No Information Plan Of Treatment No Information Insurance Providers Payer Name Payer Address Payer Phone Subscriber Number Group Number Insured Name Patient Relationship to Insured Coverage Start Date Coverage End Date Medicare Part B [place] [address] [place] [address] [id number] GERMAN LOUIS Self - patient is the insured [facility] [address] [place], [place] [id number] GERMAN LOUIS Self - patient is the insured
--- OUTSIDE RECORDS SUMMARY | 2024-11-20 11:30 | XMS_ITS | Encounter Summary ---
Author Organization [facility] Healthcare Address [address] [place] [address] Care Team Providers Care Peer Support Specialist Name Role Phone Colton Dugan MD Primary Care Provider [phone] Reason for Visit * Reason Onset Date Comments Updated pharmacy 06/28/2019 Encounter Details Date Type Department Care Team (Late st Contact Info) Description 06/28/2019 Telephone [facility] [address] [facility] [facility] [address] [place] [address] Marilyn Schwartz MD [address] [facility] [address] [place] [address] Updated pharmacy Social History Tobacco [...] on file Legal Sex Female 5:21 PM EMERGENCY MANAGEMENT COORDINATOR Gender Identity Female 05/03/2021 9:56 AM EMERGENCY MANAGEMENT COORDINATOR Sexual Orientation Not on file Occupation Industry [...] on stairs Contact your local community or [facility] for information on exercise, fall prevention programs, or options for improving home safety. documented as of this encounter Visit Diagnoses Not on filedocumented in this encounter Additional Health Concerns Infection Onset Date Last Indicated Resolved Time C. difficile 08/14/2018 08/13/2018 documented as of this encounter Care Teams Peer Support Specialist Relationship Specialty Start Date End Date Colton Dugan MD PCP - General Family Medicine 04/02/18 documented as of this encounter
--- OUTSIDE RECORDS SUMMARY | 2024-11-20 11:30 | XMS_ITS | Encounter Summary ---
Author Organization [facility] Address [address] [place] [address] Phone Care Team Providers Care Personal Insurance Advisor Name Role Phone Unknown, Notinfile Primary Care Provider Unavail able Colton Dugan MD Primary Care Provider [phone] Encounter Details Date Type Department Care Team (Late st Contact Info) Description 02/20/2018 [facility] Only [facility] [address] [facility] 2nd [address] [place] [id number] Ian Seals, DAVE [address] [place], [place] [id number] Social History Tobacco Use Types Packs/Day Years Used Date Smoking Tobacco: Every Day Comments No Sex and Gender Information Value Date Recorded Sex Assigned at Not on file Legal Sex Female 5:21 PM ASSEMBLY PRESS OPERATOR Gender Identity Female 05/03/2021 9:56 AM ASSEMBLY PRESS OPERATOR Sexual Orientation Not on file documented as of this encounter Plan of Treatment Not on file documented as of this encounter Visit Diagnoses Not on filedocumented in this encounter Additional Health Concerns Infection Onset Date Last Indicated Resolved Time C. difficile 08/14/2018 08/13/2018 documented as of this encounter Care Teams Personal Insurance Advisor Relationship Specialty Start Date End Date Unknown, Yojana PCP - General 12/19/17 04/01/18 Colton Dugan MD PCP - General Family Medicine 04/02/18 documented as of this encounter
[2024-11-20 11:34] LABS: Hematocrit 37.9 % (37.0-47.0); Hemoglobin 13.2 g/dL (12.0-15.0); Immature Granulocyte Percent A 0.3 % (0-0.5); Lymphocytes Absolute Auto 2.74 K/mm3 (0.9-3.2); Mean Corpuscular HGB Conc 34.8 g/dl (32-36); Mean Corpuscular Hemoglobin 32.0 pg (26-34); Mean Corpuscular Volume 91.8 fl (80-100); Nucleated Red Blood Cells Absolute Auto 0.000 K/mm3 (0.0-0.012); Nucleated Red Blood Cells Perc 0.0 % (0.0-0.2); Platelet Count Result 278 k/mm3 (150-375); Red Blood Count 4.13 M/mm3 (4.2-5.4); White Blood Count 6.8 K/mm3 (4.5-10.0)
[2024-11-20 11:45] LABS: Add Urine Microscopic? YES; Appearance Urine Clear (Clear); Glucose Urine UA Negative (Negative); Leukocyte Esterase Ur 2+ LEU/UL (Negative); Nitrate Urine Negative (Negative); Non Pathogenic Casts 0-2; Specific Grav Ur 1.018 (1.001-1.035)
[2024-11-20 11:54] LABS: Alanine Aminotransferase 13 U/L (6-35); Albumin Level 4.3 g/dL (3.5-5.1); Alkaline Phosphatase 72 U/L (38-126); Anion Gap 8 mmol/L (4-12); Aspartate Amino Transferase 20 U/L (14-36); Bilirubin,Total 0.4 mg/dL (0.2-1.3); Blood Urea Nitrogen 11 mg/dL (7-17); Calcium 9.6 mg/dL (8.4-10.2); Carbon Dioxide 23 mmol/L (22-30); Chloride 109 mmol/L (98-107); Estimated CRCL calculation 74 ml/min; Estimated Glomerular Filt Rate > 60; Glucose 104 mg/dL (65-110); Lipase 116 U/L (23-300); Potassium 3.6 mmol/L (3.4-5.0); Sodium 140 mmol/L (137-145); Total Protein 7.3 g/dL (6.3-8.2)
[2024-11-20 11:59] LABS: Pregnancy On Board Control Positive
--- NOTE | 2024-11-20 12:23 | ED.GENADULT ---
HPI - General Adult General Chief complaint: Nausea/Vomiting/Diarrhea Stated complaint: ?crohns flare, ?UTI Time Seen by Provider: 11/20/24 11:52 History of Present Illness HPI narrative: This is a 54-year-old female with history of Crohn's disease presenting for abdominal pain. Patient says for last 4 days she has been having lower crampy abdominal pain and persistent nausea vomiting and diarrhea. She also has urinary symptoms. She has been taking Bentyl azo and drinking lots of fluids but her symptoms continued to get worse. She denies fevers chills chest pain difficulty breathing. No bloody diarrhea. Related Data Home Medications ?Medication ?Instructions ?Recorded ?Confirmed ?Last Taken ?Type hydrocodone 10 mg-acetaminophen 1 tablet PO DIRECTED 09/23/19 05/01/21 Unknown History 325 mg tablet lamotrigine 25 mg tablet 25 mg PO DAILY 12/29/20 05/01/21 Unknown History omeprazole 40 mg capsule,delayed 40 mg PO DAILY 12/29/20 05/01/21 Unknown History release cariprazine 4.5 mg capsule 4.5 mg PO DAILY 05/01/21 05/01/21 Unknown History (Vraylar) albuterol 90 mcg-budesonide 80 2 inh inhalation DAILY PRN 10/10/24 Unknown History mcg/actuation HFA aerosol inhaler shortness of breath hydroxyzine HCl 50 mg tablet mg 10/10/24 Unknown History mirtazapine 7.5 mg tablet mg 10/10/24 Unknown History Allergies Allergy/AdvReac Type Severity Reaction Status Date / Time ciprofloxacin Allergy Unknown Rash Verified 10/22/24 11:45 Sulfa (Sulfonamide Allergy Unknown Anaphylaxis Verified 10/22/24 11:45 Antibiotics) ketorolac AdvReac Intermediate Nausea Verified 10/22/24 11:45 NSAIDS (Non-Steroidal AdvReac Intermediate Nausea Verified 10/22/24 11:45 Anti-Inflamma PMFSH Past Medical History Medical History (Updated 11/20/24 @ 13:24 by Maxwell Godinez MD) C. difficile diarrhea Anemia Schizoaffective disorder Previous known suicide attempt x2 Anxiety Depression History of bipolar disorder History of osteoporosis Arthritis UTI (urinary tract infection) Fibroids HPV (human papilloma virus) anogenital infection Ovarian cancer GERD (gastroesophageal reflux disease) IBS (irritable bowel syndrome) Pancreatitis Colitis Crohn's disease Pneumonia Bronchitis Asthma COPD (chronic obstructive pulmonary disease) HLD (hyperlipidemia) History of angina DJD (degenerative joint disease) Migraine Surgical History Surgical History H/O Spinal surgery T12 cartilage removed H/O right knee surgery H/O: hysterectomy History of cholecystectomy History of tonsillectomy Family History Family History Sibling Depression Hypertension Family history of elevated blood lipids Father Family history of arthritis Other Family history of anemia Family history of mental disorder Family history of thyroid disease Social History Social History Smoking status: Current every day smoker Gender identity (if verbalized by the patient): Female Exam Narrative: APPEARANCE: No apparent distress. Head: atraumatic. EYES: EOMI, NOSE: Atraumatic NECK: Trachea midline RESPIRATORY: No increased rate of breathing clear to auscultation CARDIOVASCULAR: RRR, no peripheral edema ABDOMINAL: Tenderness with voluntary guarding in the lower quadrants, no CVA tenderness MUSCULOSKELETAl: No obvious deformities NEURO: Alert. Moving 4/4 extremities SKIN:: Warm, dry. Normal color PSYCHIATRIC: Normal affect Course Vital Signs Vital signs: Vital Signs Temperature 97.7 F 11/20/24 10:51 Pulse Rate 68 11/20/24 10:51 Respiratory Rate 16 11/20/24 10:51 Blood Pressure 119/84 11/20/24 10:51 Pulse Oximetry 100 11/20/24 10:51 Oxygen Delivery Room Air 11/20/24 10:51 Temperature 97.7 F 11/20/24 10:51 Pulse Rate 68 11/20/24 10:51 Respiratory Rate 16 11/20/24 10:51 Blood Pressure 119/84 11/20/24 10:51 Pulse Oximetry 100 11/20/24 10:51 Oxygen Delivery Room Air 11/20/24 10:51 Medical Decision Making [facility] Narrative Medical decision making narrative: -Course: 54-year-old female with Crohn's presenting with crampy lower abdominal pain and urinary symptoms. Patient given pain control fluid resuscitation antiemetics. Urine indicative infection. CT abdomen pelvis showed colitis. Patient does not have fevers, white count or bloody diarrhea. Likely inflammatory in nature. Urine drug screen positive for cannabinoids and cocaine. Results were discussed with the patient. She will be discharged on antibiotics for UTI. She is instructed follow-up with her GI doctor for colitis. She is instructed to refrain cocaine use. Patient verbalized understanding. Given return precautions. -DDX includes but is not limited to: Crohn's complication, colitis, diverticulitis, UTI, pyelo, cannabinoid hyperemesis Vital Signs Vital Signs: Vital Signs Temperature 97.7 F 11/20/24 10:51 Pulse Rate 68 11/20/24 10:51 Respiratory Rate 16 11/20/24 10:51 Blood Pressure 119/84 11/20/24 10:51 Pulse Oximetry 100 11/20/24 10:51 Oxygen Delivery Room Air 11/20/24 10:51 Temperature 97.7 F 11/20/24 10:51 Pulse Rate 68 11/20/24 10:51 Respiratory Rate 16 11/20/24 10:51 Blood Pressure 119/84 11/20/24 10:51 Pulse Oximetry 100 11/20/24 10:51 Oxygen Delivery Room Air 11/20/24 10:51 Lab Data 11/20/24 11:24 11/20/24 11:24 Labs: Lab Results 11/20/24 11/20/24 Range/Units 11:24 12:30 WBC 6.8 (4.5-10.0) K/mm3 RBC 4.13 L (4.2-5.4) M/mm3 Hgb 13.2 (12.0-15.0) g/dL Hct 37.9 (37.0-47.0) % MCV 91.8 (80-100) fl MCH 32.0 (26-34) pg MCHC 34.8 (32-36) g/dl RDW 12.7 (11.5-14.5) % Plt Count 278 (150-375) k/mm3 MPV 9.0 (7.4-10.4) fl Immature Gran % (Auto) 0.3 (0-0.5) % Neut % (Auto) 52.2 (45.5-73.1) % Lymph % (Auto) 40.5 (18.3-44.2) % [place] % (Auto) 6.2 (2.6-8.5) % Eos % (Auto) 0.4 (0-4.4) % Baso % (Auto) 0.4 (0.2-1.2) % Lymph # (Auto) 2.74 (0.9-3.2) K/mm3 [place] # (Auto) 0.4 (0.1-0.6) K/mm3 Eos # (Auto) 0.0 (0-0.3) K/mm3 Baso # (Auto) 0.0 (0.0-0.1) K/mm3 Abs Immat Gran (auto) 0.02 (0.00-0.031) K/mm3 Absolute Neuts (auto) 3.5 (1.3-6.7) K/mm3 Absolute Nucleated RBC 0.000 (0.0-0.012) K/mm3 Nucleated RBC % 0.0 (0.0-0.2) % Sodium 140 (137-145) mmol/L Potassium 3.6 (3.4-5.0) mmol/L Chloride 109 H (98-107) mmol/L Carbon Dioxide 23 (22-30) mmol/L Anion Gap 8 (4-12) mmol/L BUN 11 (7-17) mg/dL Creatinine 0.66 L (0.7-1.0) mg/dL Estim Creat Clear Calc 74 ml/min Estimated GFR > 60 (59 - ) Glucose 104 (65-110) mg/dL Lactic Acid 0.8 (0.7-2.0) mmol/L Calcium 9.6 (8.4-10.2) mg/dL Total Bilirubin 0.4 (0.2-1.3) mg/dL AST 20 (14-36) U/L ALT 13 (6-35) U/L Alkaline Phosphatase 72 (38-126) U/L Total Protein 7.3 (6.3-8.2) g/dL Albumin 4.3 (3.5-5.1) g/dL Lipase 116 (23-300) U/L Urine Color Yellow (Yellow) Urine Appearance Clear (Clear) Urine pH 5.5 (5.0-9.0) Ur Specific [place] 1.018 (1.001-1.035) Urine Protein Negative (Negative) mg/dL Urine Glucose (UA) Negative (Negative) mg/dL Urine Ketones Negative (Negative) mg/dL Ur Blood (Man) Negative (Negative) Urine Nitrate Negative (Negative) Urine Bilirubin Negative (Negative) Urine Urobilinogen 0.2 (<2.0) mg/dL Leukocyte Esterase Rfl 2+ H (Negative) TANK/UL Urine RBC 0-2 (0-2) /hpf Urine WBC 21-50 H (0-3) /hpf Ur Squamous Epith Cells None seen (Few) /hpf Urine Bacteria None seen /hpf Urine Casts 0-2 Urine Test Negative Urine Opiates Screen Negative (Negative) Urine Methadone Screen Negative (Negative) Ur Barbiturates Screen Negative (Negative) Ur Phencyclidine Scrn Negative (Negative) Ur Amphetamine Screen Negative (Negative) U Benzodiazepines Scrn Negative (Negative) Urine Cocaine Screen Positive A (Negative) U Cannabinoids Screen Positive A (Negative) Ethyl Alcohol < 10 (<10) mg/dL Discharge Plan Discharge Clinical Impression: Colitis, UTI (urinary tract infection), Cocaine abuse Patient Disposition: Home Condition: Stable Instructions: Antibiotic Form, Dysuria (ED), Colitis (ED) Additional Instructions: You were seen in the emergency department for pain and urinary symptoms. Have a UTI. Complete a course of Keflex. You have mild colitis. This should resolve on its own. Please follow-up with your GI doctor for further management. Please refrain from illicit drug use. If you develop severe abdominal pain or if your condition is getting worse she can return to ED for re-evaluation. Patient Language: Rwandan Prescriptions: New cephalexin 500 mg capsule 500 mg PO Q12H Qty: 10 0RF No Action hydrocodone-acetaminophen 10-325 mg tablet 1 tablet PO DIRECTED Vraylar 4.5 mg capsule 4.5 mg PO DAILY hydroxyzine HCl 50 mg tablet mirtazapine 7.5 mg tablet albuterol-budesonide 90-80 mcg/actuation HFA aerosol inhaler 2 inh inhalation DAILY PRN (Reason: shortness of breath) famotidine [Pepcid] 20 mg tablet 20 mg PO BID Qty: 10 0RF omeprazole 40 mg capsule,delayed release(DR/EC) 40 mg PO DAILY lamotrigine 25 mg tablet 25 mg PO DAILY ondansetron 4 mg tablet,disintegrating 4 mg PO Q8H PRN (Reason: nausea and vomiting) Qty: 14 0RF Follow-up/Referrals: Dougie,Santo Dickerson MD [Primary Care Provider] -
--- OUTSIDE RECORDS SUMMARY | 2024-11-20 12:24 | XMS_ITS | Clinical Summary ---
Author Organization [facility] Address [address], [facility] [address] [place] [address] Phone Care Team Providers Care Rubber Printing Machine Operator Name Role Phone Colton Dugan MD Primary Care Provider [phone] Allergies Active Allergy Reactions Criticality Noted Date [...] 72.6 kg (160 lb) 06/10/2019 7:00 AM FLOOR COVERING INSTALLER Height 167.6 cm (5' 6) 06/10/2019 7:00 AM FLOOR COVERING INSTALLER Body Mass Index 25.82 06/10/2019 7:00 AM FLOOR COVERING INSTALLER Plan of Treatment Health Maintenance Due Date [...] Maintenance Insurance MEDICARE [place]ICAID [place] Care Teams Rubber Printing Machine Operator Relationship Specialty Start Date End Date Colton Dugan MD [address] [address] PCP - General Family Medicine 01/02/18
--- OUTSIDE RECORDS SUMMARY | 2024-11-20 12:24 | XMS_ITS | Encounter Summary ---
Author Organization [facility] Address [address] [place] [address] Care Team Providers Care Library Serials Assistant Name Role Phone Colton Dugan MD Primary Care Provider [phone] Reason for Visit * Reason Onset Date Comments Updated pharmacy 06/28/2019 Encounter Details Date Type Department Care Team (Late st Contact Info) Description 06/28/2019 Telephone [facility] [address] [place] [address] Marilyn Schwartz MD [address] [facility] [address] [place] [address] Updated pharmacy Social History Tobacco [...] on file Legal Sex Female 5:21 PM INDUSTRIAL MAINTENANCE TECH Gender Identity Female 05/03/2021 9:56 AM INDUSTRIAL MAINTENANCE TECH Sexual Orientation Not on file Occupation Industry [...] on stairs Contact your local community or [facility] for information on exercise, fall prevention programs, or options for improving home safety. documented as of this encounter Visit Diagnoses Not on filedocumented in this encounter Additional Health Concerns Infection Onset Date Last Indicated Resolved Time C. difficile 08/14/2018 08/13/2018 documented as of this encounter Care Teams Library Serials Assistant Relationship Specialty Start Date End Date Colton Dugan MD PCP - General Family Medicine 04/02/18 documented as of this encounter
--- OUTSIDE RECORDS SUMMARY | 2024-11-20 12:24 | XMS_ITS | Clinical Summary ---
Author Organization [facility] Address [address] [place] [address] Care Team Providers Care Tube Machine Operator Helper Name Role Phone Kodak Dillard MD Unavailable [phone] Maxwell Barrera DO Primary Care Provider Source Comments [facility],non-owned Affiliates and Associated Physician Practices is amultiple site organization consisting of ambulatory clinics and hospital sitesin [place], [place], [place] and [place]. This disclosure is being madepursuant to the Care Everywhere program and may not contain all information available regarding this patient. Last updated 18.[facility] Allergies Active Allergy Reactions Criticality Noted Date [...] on file Legal Sex Female 9:19 AM CRIME SCENE SPECIALIST Gender Identity Not on file Sexual Orientation Not on file Last Filed Vital Signs Vital Sign Reading Time Taken Comments Blood Pressure 115/75 03/10/2017 3:51 PM CRIME SCENE SPECIALIST Pulse 66 03/10/2017 3:51 PM CRIME SCENE SPECIALIST Temperature 36.9 C (98.5 F) 03/10/2017 1:51 PM CRIME SCENE SPECIALIST Respiratory Rate 16 03/10/2017 3:51 PM CRIME SCENE SPECIALIST Oxygen Saturation 100% 03/10/2017 3:51 PM CRIME SCENE SPECIALIST Inhaled Oxygen Concentration 21% 02/12/2016 5 :07 AM CDT Weight 59 kg (130 lb) 03/10/2017 1:51 PM CRIME SCENE SPECIALIST Height 171.5 cm (5' 7.5) 03/10/2017 1:51 PM CRIME SCENE SPECIALIST Body Mass Index 20.06 03/10/2017 1:51 PM CRIME SCENE SPECIALIST Plan of Treatment Health Maintenance Due Date [...] Immunoassay Negative Negative 02/10/2016 7:22 PM CDT [facility] Stool STOOL SPECIMEN / Unknown 02/10/2016 6:53 PM CDT 02/10/2016 7:06 PM CDT Sarah Isbell MEDICAL ECONOMICS CONSULTANT-COMPLIANCE QUALITY PERFORMANCE ANALYST LAB - MICROBIOLOGY ORD ERABLES Final Result Performing Organization Address City/State/[place] Co de Phone Number [facility] [address] from Last 3 Months or Most [...] 11:24 PM 04/28/2015 5:23 PM Care Teams Tube Machine Operator Helper Relationship Specialty Start Date End Date Maxwell Barrera DO [address] [place] [address] PCP - General 10/16/18 Kodak Dillard MD [address] [place] [address] Pain Management Physical Medicine and Rehabilitation 07/03/15
--- OUTSIDE RECORDS SUMMARY | 2024-11-20 12:24 | XMS_ITS | Clinical Summary ---
Author Organization [facility] Address [address] [place] [address] Care Team Providers Care Reflector Driller And Deburrer Name Role Phone Colton Dugan MD Primary Care Provider [phone] Allergies Active Allergy Reactions Criticality Noted Date [...] (09/06/2018): Added automatically from request for surgery [id number] Anxiety 04/19/2018 Chest pain at rest 04/19/2018 [...] later told pleurasy. Never followed up with Head Of Maintenance. Pain MD feels it may be due [...] history of malignant neoplasm - (Added by [employer] Conv) Arthritis Father Cancer Father Family history of malignant neoplasm - (Added by TW Conv) Clotting disorder Father Hypertension Father Stroke Father Arthritis Mother Clotting disorder Mother Lung disease Mother Mental illness Mother Heart disease Other 1 Heart Disease - (Added by TW Conv) Hypertension Other 2 Hypertension - (Added by TW Conv) Cancer Other 3 Cancer - (Added by [employer] Conv) Cancer Other 4 Family history of [...] on file Legal Sex Female 5:21 PM LEAD INVESTIGATOR Gender Identity Female 05/03/2021 9:56 AM LEAD INVESTIGATOR Sexual Orientation Not on file Occupation Industry [...] Plan Chronic Care Management No Gricel Ivory, EMELINA Note: Problem: Chronic Pain Goals: [...] home safety. Medical Devices Implanted Type Area Gas Burner Operator Device Identifier Shelf Expiration Date Model / Serial / Lot Pivot [employer] [id number] [facility] Knotless Stamping Die Maker Lock Maple Suture Labrum - [id number] Implanted:Qty: 1 on 11/28/2018 by Manuela Graham MD at [facility] [place] Right: Hip [employer] [id number] 01/11/2020 [id number] / / [id number] P[employer] [id number] Cinchlock Ss Knotless Stamping Die Maker Lock Maple Suture Labrum - [id number] Implanted:Qty: 1 on 11/28/2018 by Manuela Graham MD at [facility] [place] Right: Hip [employer] [id number] 01/11/2020 [id number] / / [id number] Pivot [employer] [id number] Cinchlock Ss Knotless Stamping Die Maker Lock Maple Suture Labrum - [id number] Implanted:Qty: 1 on 11/28/2018 by Manuela Graham MD at [facility] [place] Right: Hip [employer] [id number] 09/20/2019 [id number] / / [id number] Additional Health Concerns Infection Onset Date Last Indicated C. difficile 08/14/2018 08/13/2018 Insurance MEDICARE IDPA [facility] MEDICARE MEDICARE MEDICARE [place] Care Teams Reflector Driller And Deburrer Relationship Specialty Start Date End Date Colton Dugan MD PCP - General Family Medicine 04/02/18
--- OUTSIDE RECORDS SUMMARY | 2024-11-20 12:24 | XMS_ITS | Encounter Summary ---
Author Organization [facility] Address [address] [place] [address] Phone Care Team Providers Care Drafter Structural Name Role Phone Unknown, Notinfile Primary Care Provider Unavail able Colton Dugan MD Primary Care Provider [phone] Encounter Details Date Type Department Care Team (Late st Contact Info) Description 02/20/2018 Orders Only [facility] Orthopaedic Surgery [address] [facility] 2nd [address] [place] [id number] Ian Seals, DAVE [address] [place], [place] [id number] Social History Tobacco Use Types Packs/Day Years Used Date Smoking Tobacco: Every Day Comments No Sex and Gender Information Value Date Recorded Sex Assigned at Not on file Legal Sex Female 5:21 PM SHELL TRIM OPERATOR Gender Identity Female 05/03/2021 9:56 AM SHELL TRIM OPERATOR Sexual Orientation Not on file documented as of this encounter Plan of Treatment Not on file documented as of this encounter Visit Diagnoses Not on filedocumented in this encounter Additional Health Concerns Infection Onset Date Last Indicated Resolved Time C. difficile 08/14/2018 08/13/2018 documented as of this encounter Care Teams Drafter Structural Relationship Specialty Start Date End Date Unknown, Yojana PCP - General 12/19/17 04/01/18 Colton Dugan MD PCP - General Family Medicine 04/02/18 documented as of this encounter
--- OUTSIDE RECORDS SUMMARY | 2024-11-20 12:24 | XMS_ITS ---
Author Organization [facility] Address [address] [place] [address] Care Team Providers Care Senior Php Software Developer Name Role Phone Colton Dugan MD Primary Care Provider [phone] Active Problems Problem Noted Date Diagnosed Date Current tear of medial cartilage or meniscus of knee 06/19/2019 Enthesopathy of hip region 06/19/2019 Injury of lower extremity 06/19/2019 Knee pain 06/19/2019 Osteoarthritis of knee 06/19/2019 Pain in limb 06/19/2019 Labral tear of hip, degenerative 09/06/2018 Overview (09/06/2018): Added automatically from request for surgery [id number] Anxiety 04/19/2018 Chest pain at rest 04/19/2018 [...]
--- OUTSIDE RECORDS SUMMARY | 2024-11-20 12:24 | XMS_ITS | Encounter Summary ---
Author Organization [facility] Healthcare Address [address] [place] [address] Care Team Providers Care Pilot Plant Operator Name Role Phone Colton Dugan MD Primary Care Provider [phone] Reason for Visit * Reason Onset Date Comments Appointment 08/09/2018 Encounter Details Date Type Department Care Team (Late st Contact Info) Description 08/09/2018 Telephone [facility] [address] [facility] [address] [facility] [address] [facility] [address] [place] [address] Marilyn Schwartz MD [address] [facility] [address] [place] [address] Appointment Social History Tobacco Use Types Packs/Day Years Used Date Smoking Tobacco: Former Smokeless Tobacco: Never Alcohol Use Standard Drinks/Week Comments Yes 0 (1 standard drink = 0.6 oz pur e alcohol) Comments No Sex and Gender Information Value Date Recorded Sex Assigned at Not on file Legal Sex Female 5:21 PM PIGMENT AND LACQUER MIXER Gender Identity Female 05/03/2021 9:56 AM PIGMENT AND LACQUER MIXER Sexual Orientation Not on file Occupation Industry [...] on stairs Contact your local community or [facility] for information on exercise, fall prevention programs, or options for improving home safety. documented as of this encounter Visit Diagnoses Not on filedocumented in this encounter Additional Health Concerns Infection Onset Date Last Indicated Resolved Time C. difficile 08/14/2018 08/13/2018 documented as of this encounter Care Teams Pilot Plant Operator Relationship Specialty Start Date End Date Colton Dugan MD PCP - General Family Medicine 04/02/18 documented as of this encounter
[2024-11-20] MEDS: FAMOTIDINE 20 MG/2 ML VIAL IV PUSH (12:43)
[2024-11-20] MEDS: ONDANSETRON INJ 4 MG/2 ML VIAL IV PUSH (12:43)
[2024-11-20] MEDS: HYDROmorphone HCL INJ (*CRX) 2 MG/ML VIAL 0.5 MG IV PUSH (12:43)
[2024-11-20] MEDS: SODIUM CHLORIDE 0.9% IV 2,000 ML 999 ML IV CONT (12:43)
[2024-11-20 13:14] LABS: Cannabinoid Screen Urine Positive (Negative)
== END 2024-11-20 13:49 | disposition home or self-care (01) ==
PROVIDERS: Emergency Medicine; Emergency Provider Emergency Medicine; PCP Family Medicine
DX: K52.9 Noninfective gastroenteritis and colitis, unspecified (principal); N39.0 Urinary tract infection, site not specified; F14.10 Cocaine abuse, uncomplicated; J44.9 Chronic obstructive pulmonary disease, unspecified; E78.5 Hyperlipidemia, unspecified; K50.90 Crohn's disease, unspecified, without complications; M81.0 Age-related osteoporosis without current pathological fracture; M19.90 Unspecified osteoarthritis, unspecified site; K21.9 Gastro-esophageal reflux disease without esophagitis; F25.9 Schizoaffective disorder, unspecified; F41.9 Anxiety disorder, unspecified; F31.9 Bipolar disorder, unspecified; F17.200 Nicotine dependence, unspecified, uncomplicated; Z86.2 Personal history of diseases of the blood and blood-forming organs and certain disorders involving the immune mechanism; Z85.43 Personal history of malignant neoplasm of ovary; Z87.01 Personal history of pneumonia (recurrent); Z90.49 Acquired absence of other specified parts of digestive tract; Z90.710 Acquired absence of both cervix and uterus; Z79.899 Other long term (current) drug therapy
CPT/HCPCS: 36415; 74177; 80053; 80307; 81001; 81025; 82077; 83605; 83690; 85025; 87086; 96361; 96374; 96375; 99284; J1171; J2405; J7030; Q9967

== ENCOUNTER → 2024-12-18 13:34 | Outpatient (CLI) | payer MEDICARE, SELFPAY ==
--- NOTE | ~2024-12-18 | XR_ITS ---
EXAMINATION: XR foot LT min 3V DATE: 12/18/2024 13:50 INDICATION: Left foot pain. Injury. TECHNIQUE: 4 images of the left foot were obtained. COMPARISON: None. FINDINGS: Mildly displaced oblique fracture of the middle third of the proximal phalanx of the fifth toe with adjacent soft tissue swelling. No other fracture identified. Bones appear osteopenic. Mild degenerative change in the first metatarsophalangeal joint. IMPRESSION: 1. Mildly displaced fracture of the proximal phalanx of the fifth toe. If symptoms persist or worsen, consider a short-term follow-up study or additional imaging for further assessment. Reviewed, dictated and finalized at location Q. IMPRESSION: 1. Mildly displaced fracture of the proximal phalanx of the fifth toe. If symptoms persist or worsen, consider a short-term follow-up study or additio nal imaging for further assessment.
== END ==
LOC: EXPCRAD 13:40
PROVIDERS: PCP Family Medicine; Visit Provider Family Medicine
DX: M79.672 Pain in left foot (principal)
CPT/HCPCS: 73630

== ENCOUNTER 2025-02-24 11:49 | Emergency (ER) | payer MEDICARE, SELFPAY ==
--- NOTE | ~2025-02-24 | XR_ITS ---
EXAMINATION: XR chest 2V DATE: 02/24/2025 12:17 INDICATION: 3 days of shortness of breath and chest pain TECHNIQUE: PA and lateral views of the chest were obtained. COMPARISON: Chest radiograph dated 12/16/2021 FINDINGS: The lungs are clear with no focal airspace opacities, pulmonary edema, pleural effusion or pneumothorax. The cardiomediastinal silhouette is normal. Mild thoracic spondylosis with chronic appearing mild anterior wedging of a few mid to lower thoracic vertebral bodies. IMPRESSION: 1. No acute cardiopulmonary disease. Reviewed, dictated and finalized at location A. ING MACHINE OPERATOR
--- NOTE | 2025-02-24 11:50 | ECG_ITS ---
Test Date: 2025-02-24 11:57:50 Measurements Intervals [place] Rate: 76 P: 80 NH: 142 QRS: 85 QRSD: 79 T: 58 QT: 371 QTc: 417 Interpretive Statements SINUS RHYTHM POSSIBLE LEFT ATRIAL ENLARGEMENT [-0.1mV P-WAVE IN V1/V2] NONSPECIFIC T-WAVE ABNORMALITY No previous ECG available for comparison Electronically Signed On 02-25-2025 17:28:09 SOCIAL WORK INSTRUCTOR by Josef Reynoso M.D.
[2025-02-24 11:51] VITALS: BP 93/60; PULSE 71; RESP 20; TEMP 36.4; O2SAT 99
[2025-02-24 12:14] LABS: Hematocrit 36.0 % (37.0-47.0); Hemoglobin 12.2 g/dL (12.0-15.0); Immature Granulocyte Percent A 0.4 % (0-0.5); Lymphocytes Absolute Auto 1.87 K/mm3 (0.9-3.2); Mean Corpuscular HGB Conc 33.9 g/dl (32-36); Mean Corpuscular Hemoglobin 31.7 pg (26-34); Mean Corpuscular Volume 93.5 fl (80-100); Nucleated Red Blood Cells Absolute Auto 0.000 K/mm3 (0.0-0.012); Nucleated Red Blood Cells Perc 0.0 % (0.0-0.2); Platelet Count Result 222 k/mm3 (150-375); Red Blood Count 3.85 M/mm3 (4.2-5.4); White Blood Count 8.1 K/mm3 (4.5-10.0)
--- OUTSIDE RECORDS SUMMARY | 2025-02-24 12:28 | XMS_ITS | Encounter Summary ---
Author Organization [facility] Address [address] [place] [address] Phone Care Team Providers Care Coffee Supervisor Name Role Phone Unknown, Notinfile Primary Care Provider Unavail able Colton Dugan MD Primary Care Provider [phone] Encounter Details Date Type Department Care Team (Late st Contact Info) Description 02/20/2018 Orders Only [facility] Orthopaedic Surgery [address] [facility] 2nd Floor [address] [place] [id number] Ian Seals, DAVE [address] [place], [place] [id number] Social History Tobacco Use Types Packs/Day Years Used Date Smoking Tobacco: Every Day Comments No Sex and Gender Information Value Date Recorded Sex Assigned at Not on file Legal Sex Female 5:21 PM MEDICAL RECORD SPECIALIST Gender Identity Female 05/03/2021 9:56 AM MEDICAL RECORD SPECIALIST Sexual Orientation Not on file documented as of this encounter Plan of Treatment Not on file documented as of this encounter Visit Diagnoses Not on filedocumented in this encounter Additional Health Concerns Infection Onset Date Last Indicated Resolved Time C. difficile 08/14/2018 08/13/2018 documented as of this encounter Care Teams Coffee Supervisor Relationship Specialty Start Date End Date Unknown, Yojana PCP - General 12/19/17 04/01/18 Colton Dugan MD PCP - General Family Medicine 04/02/18 documented as of this encounter
--- OUTSIDE RECORDS SUMMARY | 2025-02-24 12:28 | XMS_ITS | Clinical Summary ---
Author Organization [facility] Address [address], [facility] [address] [place] [address] Phone Care Team Providers Care Landscape Technician Name Role Phone Colton Dugan MD Primary Care Provider [phone] Allergies Active Allergy Reactions Criticality Noted Date [...] 72.6 kg (160 lb) 06/10/2019 7:00 AM PROGRAM THERAPIST Height 167.6 cm (5' 6) 06/10/2019 7:00 AM PROGRAM THERAPIST Body Mass Index 25.82 06/10/2019 7:00 AM PROGRAM THERAPIST Plan of Treatment Health Maintenance Due Date Last Done Comments Hepatitis C Virus (HCV) Screening 1970 TdaP Immunization 1971 Hepatitis B Immunization (1 of 3 - 19+ 3-dose series) 06/15/1990 Medicare Initial AWV [id number] 11/15/2009 Cologuard 06/15/2016 Immunochemical Fecal Occult Blood 06/15/2016 Pneumococcal Immunization (5 0+ years) (2 of 2 - PCV) 06/15/2021 02/23/2015, 12/16/2010 Zoster Immunization (1 of 2) 06/15/2021 Colonoscopy 05/31/2024 05/31/2019, 10/25/2018, 05/25/2012 Colorectal Cancer Screening 05/31/2024 Influenza Immunization (#1) 12/16/202401/16, 01/15/2015, 01/14/2013 SARS-COV-2 Immunization ( season) 2024 03/09/2021, 07/07/2020, 2020 Respiratory Syncytial Virus (RSV) Immunization (Adult) (1 [...] Maintenance Insurance MEDICARE [place]ICAID [place] Care Teams Landscape Technician Relationship Specialty Start Date End Date Colton Dugan MD [address] [place] [id number] PCP - General Family Medicine 01/02/18
--- OUTSIDE RECORDS SUMMARY | 2025-02-24 12:28 | XMS_ITS ---
Author Organization [facility] Address [address] [place] [address] Care Team Providers Care Aquatics Manager Name Role Phone Colton Dugan MD Primary Care Provider [phone] Active Problems Problem Noted Date Diagnosed Date Current tear of medial cartilage or meniscus of knee 06/19/2019 Enthesopathy of hip region 06/19/2019 Injury of lower extremity 06/19/2019 Knee pain 06/19/2019 Osteoarthritis of knee 06/19/2019 Pain in limb 06/19/2019 Labral tear of hip, degenerative 09/06/2018 Overview (09/06/2018): Added automatically from request for surgery [id number] Anxiety 04/19/2018 Chest pain at rest 04/19/2018 [...]
--- OUTSIDE RECORDS SUMMARY | 2025-02-24 12:28 | XMS_ITS | Clinical Summary ---
Author Organization [facility] Address [address] [place] [address] Care Team Providers Care Renewals Specialist Name Role Phone Colton Dugan MD Primary Care Provider [phone] Allergies Active Allergy Reactions Criticality Noted Date [...] (09/06/2018): Added automatically from request for surgery [id number] Anxiety 04/19/2018 Chest pain at rest 04/19/2018 [...] later told pleurasy. Never followed up with Bleach Liquor Maker. Pain MD feels it may be due [...] history of malignant neoplasm - (Added by [employer] Conv) Arthritis Father Cancer Father Family history of malignant neoplasm - (Added by TW Conv) Clotting disorder Father Hypertension Father Stroke Father Arthritis Mother Clotting disorder Mother Lung disease Mother Mental illness Mother Heart disease Other 1 Heart Disease - (Added by TW Conv) Hypertension Other 2 Hypertension - (Added by TW Conv) Cancer Other 3 Cancer - (Added by [employer] Conv) Cancer Other 4 Family history of [...] on file Legal Sex Female 5:21 PM UNIT NURSE Gender Identity Female 05/03/2021 9:56 AM UNIT NURSE Sexual Orientation Not on file Occupation Industry [...] home safety. Medical Devices Implanted Type Area Quality Assurance Representative Device Identifier Shelf Expiration Date Model / Serial / Lot Pivot Medical [id number] [facility] Knotless Wardrobe Specialty Worker Lock [place] Suture Labrum - [id number] Implanted:Qty: 1 on 11/28/2018 by Manuela Graham MD at [facility] [place] Right: Hip Pivot [employer] [id number] 01/11/2020 [id number] / / [id number] Pivot Medical [id number] [employer] Knotless Wardrobe Specialty Worker Lock [place] Suture Labrum - [id number] Implanted:Qty: 1 on 11/28/2018 by Manuela Graham MD at [facility] [place] Right: Hip Pivot [employer] [id number] 01/11/2020 [id number] / / [id number] Pivot Medical [id number] [employer] Knotless Wardrobe Specialty Worker Lock [place] Suture Labrum - [id number] Implanted:Qty: 1 on 11/28/2018 by Manuela Graham MD at [facility] [place] Right: Hip [employer] [id number] 09/20/2019 [id number] / / [id number] Additional Health Concerns Infection Onset Date Last Indicated C. difficile 08/14/2018 08/13/2018 Insurance MEDICARE [facility] Address: [address] [address] [place] [address] IDPA [facility] MEDICARE MEDICARE MEDICARE [facility] Address: [address] [address] [place] [address] IDPA Care Teams Renewals Specialist Relationship Specialty Start Date End Date Colton Dugan MD PCP - General Family Medicine 04/02/18
--- OUTSIDE RECORDS SUMMARY | 2025-02-24 12:28 | XMS_ITS | Encounter Summary ---
Author Organization [facility] Address [address] [place] [address] Care Team Providers Care Pullboat Engineer Name Role Phone Colton Dugan MD Primary Care Provider [phone] Reason for Visit * Reason Onset Date Comments Appointment 08/09/2018 Encounter Details Date Type Department Care Team (Late st Contact Info) Description 08/09/2018 Telephone [facility] [place] [facility] [address] [facility] Advanced Medicine [address] [place] [address] Marilyn Schwartz MD [address] [facility] [address] [place] [address] Appointment Social History Tobacco Use Types Packs/Day Years Used Date Smoking Tobacco: Former Smokeless Tobacco: Never Alcohol Use Standard Drinks/Week Comments Yes 0 (1 standard drink = 0.6 oz pur e alcohol) Comments No Sex and Gender Information Value Date Recorded Sex Assigned at Not on file Legal Sex Female 5:21 PM FITNESS CLUB MANAGER Gender Identity Female 05/03/2021 9:56 AM FITNESS CLUB MANAGER Sexual Orientation Not on file Occupation [...] on stairs Contact your local community or [facility] for information on exercise, fall prevention programs, or options for improving home safety. documented as of this encounter Visit Diagnoses Not on filedocumented in this encounter Additional Health Concerns Infection Onset Date Last Indicated Resolved Time C. difficile 08/14/2018 08/13/2018 documented as of this encounter Care Teams Pullboat Engineer Relationship Specialty Start Date End Date Colton Dugan MD PCP - General Family Medicine 04/02/18 documented as of this encounter
--- OUTSIDE RECORDS SUMMARY | 2025-02-24 12:28 | XMS_ITS | Clinical Summary ---
Author Organization [facility] Address [address] [place] [address] Care Team Providers Care Nutrition Services Manager Name Role Phone Kodak Dillard MD Unavailable [phone] Maxwell Barrera DO Primary Care Provider Source Comments [facility],non-owned Affiliates and Associated Physician Practices is amultiple site organization consisting of ambulatory clinics and hospital sitesin [place], [place], [place] and [place]. This disclosure is being madepursuant to the Care Everywhere program and may not contain all information available regarding this patient. Last updated 18.[facility] Allergies Active Allergy Reactions Criticality Noted [...] on file Legal Sex Female 9:19 AM SENIOR PRODUCT ENGINEER Gender Identity Not on file Sexual Orientation Not on file Last Filed Vital Signs Vital Sign Reading Time Taken Comments Blood Pressure 115/75 03/10/2017 3:51 PM SENIOR PRODUCT ENGINEER Pulse 66 03/10/2017 3:51 PM SENIOR PRODUCT ENGINEER Temperature 36.9 C (98.5 F) 03/10/2017 1:51 PM SENIOR PRODUCT ENGINEER Respiratory Rate 16 03/10/2017 3:51 PM SENIOR PRODUCT ENGINEER Oxygen Saturation 100% 03/10/2017 3:51 PM SENIOR PRODUCT ENGINEER Inhaled Oxygen Concentration 21% 02/12/2016 5 :07 AM CDT Weight 59 kg (130 lb) 03/10/2017 1:51 PM SENIOR PRODUCT ENGINEER Height 171.5 cm (5' 7.5) 03/10/2017 1:51 PM SENIOR PRODUCT ENGINEER Body Mass Index 20.06 03/10/2017 1:51 PM SENIOR PRODUCT ENGINEER Plan of Treatment Health Maintenance Due [...] COVID-19 VACCINE (1 - 2023-2 5 season) 2024 INFLUENZA VACCINE (#1) 2024 6, 01/15/2015, 01/15/2013 [...] Immunoassay Negative Negative 02/10/2016 7:22 PM CDT [facility] Stool STOOL SPECIMEN / Unknown 02/10/2016 6:53 PM CDT 02/10/2016 7:06 PM CDT Sarah Isbell MANAGER OF ENVIRONMENTAL SERVICES-ORTHOTIC AND PROSTHETIC TECHNICIAN LAB - MICROBIOLOGY ORD ERABLES Final Result Performing Organization Address City/State/[facility] Co de Phone Number [facility] [address] from Last 3 Months or Most Recently Relevant to Health Maintenance Insurance MEDICARE MEDICAID - OUT OF STATE MEDICARE MEDICAID [place] MED[place]ENEFIT - [place] [address] Advance Directives * Full Code (Latest Code [...] 11:24 PM 04/28/2015 5:23 PM Care Teams Nutrition Services Manager Relationship Specialty Start Date End Date Maxwell Barrera DO [address] [place] [address] PCP - General 10/16/18 Kodak Dillard MD [address] [place] [address] Pain Management Physical Medicine and Rehabilitation 07/03/15
--- OUTSIDE RECORDS SUMMARY | 2025-02-24 12:28 | XMS_ITS | Encounter Summary ---
Author Organization [facility] Address [address] [place] [address] Care Team Providers Care Baton Twirler Name Role Phone Colton Dugan MD Primary Care Provider [phone] Reason for Visit * Reason Onset Date Comments Updated pharmacy 06/28/2019 Encounter Details Date Type Department Care Team (Late st Contact Info) Description 06/28/2019 Telephone [facility] at [facility] [address] [facility] [address] [place] [address] Marilyn Schwartz MD [address] [facility] [address] [place] [address] Updated pharmacy Social History Tobacco [...] on file Legal Sex Female 5:21 PM DRIVING SCHOOL INSTRUCTOR Gender Identity Female 05/03/2021 9:56 AM DRIVING SCHOOL INSTRUCTOR Sexual Orientation Not on file Occupation Industry [...] on stairs Contact your local community or [facility] for information on exercise, fall prevention programs, or options for improving home safety. documented as of this encounter Visit Diagnoses Not on filedocumented in this encounter Additional Health Concerns Infection Onset Date Last Indicated Resolved Time C. difficile 08/14/2018 08/13/2018 documented as of this encounter Care Teams Baton Twirler Relationship Specialty Start Date End Date Colton Dugan MD PCP - General Family Medicine 04/02/18 documented as of this encounter
[2025-02-24 12:29] LABS: Alanine Aminotransferase 16 U/L (6-35); Albumin Level 4.1 g/dL (3.5-5.1); Alkaline Phosphatase 79 U/L (38-126); Anion Gap 8 mmol/L (4-12); Aspartate Amino Transferase 28 U/L (14-36); Bilirubin,Total 0.5 mg/dL (0.2-1.3); Blood Urea Nitrogen 4 mg/dL (7-17); Calcium 8.9 mg/dL (8.4-10.2); Carbon Dioxide 27 mmol/L (22-30); Chloride 100 mmol/L (98-107); Estimated CRCL calculation 76 ml/min; Estimated Glomerular Filt Rate > 60; Glucose 111 mg/dL (65-110); Lipase 22 U/L (23-300); Potassium 3.8 mmol/L (3.4-5.0); Sodium 135 mmol/L (137-145); Total Protein 7.0 g/dL (6.3-8.2)
[2025-02-24 12:35] LABS: INR 1.3; Partial Thromboplastin Time 28.6 Seconds (22.3-36.8); Prothrombin Time 15.6 Seconds (11.1-14.7)
[2025-02-24 12:37] VITALS: BP 96/63; PULSE 64; RESP 29; O2SAT 98
[2025-02-24 12:37] LABS: Troponin I < 0.012 ng/mL (0.000-0.034)
[2025-02-24 12:49] VITALS: O2SAT 99
[2025-02-24] MEDS: ASPIRIN 81 MG CHEWABLE TABLET 324 MG PO (13:02)
[2025-02-24 13:45] LABS: Influenza A QL RT-PCR Negative (Negative); Influenza B QL RT-PCR Negative (Negative); RSV RNA, RT-PCR Negative (Negative); SARS-CoV-2 RNA PCR Negative (Negative)
--- OUTSIDE RECORDS SUMMARY | 2025-02-24 14:22 | XMS_ITS | Encounter Summary ---
Author Organization [facility] Address [address] [place] [address] Phone Care Team Providers Care Plumbing Warehouse Helper Name Role Phone Unknown, Notinfile Primary Care Provider Unavail able Colton Dugan MD Primary Care Provider [phone] Encounter Details Date Type Department Care Team (Late st Contact Info) Description 02/20/2018 Orders Only [facility] Orthopaedic Surgery [address] [facility] 2nd Floor [address] [place] [phone] Ian Seals, DAVE [address] [place], [place] [id number] Social History Tobacco Use Types Packs/Day Years Used Date Smoking Tobacco: Every Day Comments No Sex and Gender Information Value Date Recorded Sex Assigned at Not on file Legal Sex Female 5:21 PM COKE WHEELER Gender Identity Female 05/03/2021 9:56 AM COKE WHEELER Sexual Orientation Not on file documented as of this encounter Plan of Treatment Not on file documented as of this encounter Visit Diagnoses Not on filedocumented in this encounter Additional Health Concerns Infection Onset Date Last Indicated Resolved Time C. difficile 08/14/2018 08/13/2018 documented as of this encounter Care Teams Plumbing Warehouse Helper Relationship Specialty Start Date End Date Unknown, Yojana PCP - General 12/19/17 04/01/18 Colton Dugan MD PCP - General Family Medicine 04/02/18 documented as of this encounter
--- OUTSIDE RECORDS SUMMARY | 2025-02-24 14:22 | XMS_ITS | Clinical Summary ---
Author Organization [facility] Address [address], [facility] [address] [place] [address] Phone Care Team Providers Care Inflated Ball Molder Name Role Phone Colton Dugan MD Primary Care Provider [phone] Allergies Active Allergy Reactions Criticality Noted Date [...] 72.6 kg (160 lb) 06/10/2019 7:00 AM VENEER SAMPLE MAKER Height 167.6 cm (5' 6) 06/10/2019 7:00 AM VENEER SAMPLE MAKER Body Mass Index 25.82 06/10/2019 7:00 AM VENEER SAMPLE MAKER Plan of Treatment Health Maintenance Due Date [...] Maintenance Insurance MEDICARE [place]ID [place] Care Teams Inflated Ball Molder Relationship Specialty Start Date End Date Colton Dugna MD [address] [place] [address] PCP - General Family Medicine 01/02/18
--- OUTSIDE RECORDS SUMMARY | 2025-02-24 14:22 | XMS_ITS | Clinical Summary ---
Author Organization [facility] Address [address] [place] [address] Care Team Providers Care Opinion Polls Survey Worker Name Role Phone Colton Dugan MD Primary Care Provider [phone] Allergies Active Allergy Reactions Criticality Noted Date [...] (09/06/2018): Added automatically from request for surgery [id number] Anxiety 04/19/2018 Chest pain at rest 04/19/2018 [...] later told pleurasy. Never followed up with Project Inspector. Pain MD feels it may be due [...] history of malignant neoplasm - (Added by [employer] Conv) Arthritis Father Cancer Father Family history of malignant neoplasm - (Added by TW Conv) Clotting disorder Father Hypertension Father Stroke Father Arthritis Mother Clotting disorder Mother Lung disease Mother Mental illness Mother Heart disease Other 1 Heart Disease - (Added by TW Conv) Hypertension Other 2 Hypertension - (Added by TW Conv) Cancer Other 3 Cancer - (Added by [employer] Conv) Cancer Other 4 Family history of [...] on file Legal Sex Female 5:21 PM CONTRACT RECRUITER Gender Identity Female 05/03/2021 9:56 AM CONTRACT RECRUITER Sexual Orientation Not on file Occupation Industry [...] home safety. Medical Devices Implanted Type Area Freight Handler Device Identifier Shelf Expiration Date Model / Serial / Lot Pivot Medical [id number] [facility] Knotless Director Skills Lock [place] Suture Labrum - [id number] Implanted:Qty: 1 on 11/28/2018 by Manuela Graham MD at [facility] [place] Right: Hip [employer] [id number] 01/11/2020 [id number] / / [id number] Pivot [employer] [id number] [employer] Knotless Director Skills Lock [place] Suture Labrum - [id number] Implanted:Qty: 1 on 11/28/2018 by Manuela Graham MD at [facility] [place] Right: Hip [employer] [id number] 01/11/2020 [id number] / / [id number] Pivot [employer] [id number] [employer] Knotless Director Skills Lock [place] Suture Labrum - [id number] Implanted:Qty: 1 on 11/28/2018 by Manuela Graham MD at [facility] [place] Right: Hip [employer] [id number] 09/20/2019 [id number] / / [id number] Additional Health Concerns Infection Onset Date Last Indicated C. difficile 08/14/2018 08/13/[address] [facility] MEDICARE MEDICARE MEDICARE [place] Care Teams Opinion Polls Survey Worker Relationship Specialty Start Date End Date Colton Dugan MD PCP - General Family Medicine 04/02/18
--- OUTSIDE RECORDS SUMMARY | 2025-02-24 14:22 | XMS_ITS | Clinical Summary ---
Author Organization [facility] Address [address] [place] [address] Care Team Providers Care Tube Balancer Name Role Phone Kodak Dillard MD Unavailable [phone] Maxwell Barrera DO Primary Care Provider Source Comments [facility],non-owned Affiliates and Associated Physician Practices is amultiple site organization consisting of ambulatory clinics and hospital sitesin [place], [place], [place] and [place]. This disclosure is being madepursuant to the Care Everywhere program and may not contain all information available regarding this patient. Last updated 18.[facility] Allergies Active Allergy Reactions Criticality Noted [...] on file Legal Sex Female 9:19 AM SPECIAL INSPECTOR Gender Identity Not on file Sexual Orientation Not on file Last Filed Vital Signs Vital Sign Reading Time Taken Comments Blood Pressure 115/75 03/10/2017 3:51 PM SPECIAL INSPECTOR Pulse 66 03/10/2017 3:51 PM SPECIAL INSPECTOR Temperature 36.9 C (98.5 F) 03/10/2017 1:51 PM SPECIAL INSPECTOR Respiratory Rate 16 03/10/2017 3:51 PM SPECIAL INSPECTOR Oxygen Saturation 100% 03/10/2017 3:51 PM SPECIAL INSPECTOR Inhaled Oxygen Concentration 21% 02/12/2016 5 :07 AM CDT Weight 59 kg (130 lb) 03/10/2017 1:51 PM SPECIAL INSPECTOR Height 171.5 cm (5' 7.5) 03/10/2017 1:51 PM SPECIAL INSPECTOR Body Mass Index 20.06 03/10/2017 1:51 PM SPECIAL INSPECTOR Plan of Treatment Health Maintenance Due Date [...] Immunoassay Negative Negative 02/10/2016 7:22 PM CDT [facility] Stool STOOL SPECIMEN / Unknown 02/10/2016 6:53 PM CDT 02/10/2016 7:06 PM CDT Sarah Isbell RN LIAISON-SHOE REPAIRER APPRENTICE LAB - MICROBIOLOGY ORD ERABLES Final Result Performing Organization Address City/State/[facility] Co de Phone Number [facility] [address] from Last 3 Months or Most [...] PM 04/28/2015 5:23 PM Care Teams Tube Balancer Relationship Specialty Start Date End Date Maxwell Barrera DO [address] [place] [address] PCP - General 10/16/18 Kodak Dillard MD [address] [place] [address] Pain Management Physical Medicine and Rehabilitation 07/03/15
--- OUTSIDE RECORDS SUMMARY | 2025-02-24 14:22 | XMS_ITS | Encounter Summary ---
Author Organization [facility] Healthcare Address [address] [place] [address] Care Team Providers Care Telephone Ad Taker Name Role Phone Colton Dugan MD Primary Care Provider [phone] Reason for Visit * Reason Onset Date Comments Updated pharmacy 06/28/2019 Encounter Details Date Type Department Care Team (Late st Contact Info) Description 06/28/2019 Telephone [facility] at [facility] [address] [facility] [address] [place] [address] Marilyn Schwartz MD [address] [facility] [address] [place] [address] Updated pharmacy Social History Tobacco [...] on file Legal Sex Female 5:21 PM IBM MAINFRAME SYSTEMS PROGRAMMER Gender Identity Female 05/03/2021 9:56 AM [employer] MAINFRAME SYSTEMS PROGRAMMER Sexual Orientation Not on file Occupation Industry [...] on stairs Contact your local community or [facility] for information on exercise, fall prevention programs, or options for improving home safety. documented as of this encounter Visit Diagnoses Not on filedocumented in this encounter Additional Health Concerns Infection Onset Date Last Indicated Resolved Time C. difficile 08/14/2018 08/13/2018 documented as of this encounter Care Teams Telephone Ad Taker Relationship Specialty Start Date End Date Colton Dugan MD PCP - General Family Medicine 04/02/18 documented as of this encounter
--- OUTSIDE RECORDS SUMMARY | 2025-02-24 14:22 | XMS_ITS | Encounter Summary ---
Author Organization [facility] Healthcare Address [address] [place] [address] Care Team Providers Care Refuse Driver Name Role Phone Colton Dugan MD Primary Care Provider [phone] Reason for Visit * Reason Onset Date Comments Appointment 08/09/2018 Encounter Details Date Type Department Care Team (Late st Contact Info) Description 08/09/2018 Telephone [facility] at [facility] [place] [facility] [address] [facility] Advanced Medicine [address] [place] [address] Marilyn Schwartz MD [address] [facility] [address] [place] [address] Appointment Social History Tobacco Use Types Packs/Day Years Used Date Smoking Tobacco: Former Smokeless Tobacco: Never Alcohol Use Standard Drinks/Week Comments Yes 0 (1 standard drink = 0.6 oz pur e alcohol) Comments No Sex and Gender Information Value Date Recorded Sex Assigned at Not on file Legal Sex Female 5:21 PM STATISTICAL MACHINE SERVICER Gender Identity Female 05/03/2021 9:56 AM STATISTICAL MACHINE SERVICER Sexual Orientation Not on file Occupation Industry [...] stairs Contact your local community or [facility] for information on exercise, fall prevention programs, or options for improving home safety. documented as of this encounter Visit Diagnoses Not on filedocumented in this encounter Additional Health Concerns Infection Onset Date Last Indicated Resolved Time C. difficile 08/14/2018 08/13/2018 documented as of this encounter Care Teams Refuse Driver Relationship Specialty Start Date End Date Colton Dugan MD PCP - General Family Medicine 04/02/18 documented as of this encounter
--- OUTSIDE RECORDS SUMMARY | 2025-02-24 14:22 | XMS_ITS ---
Author Organization [facility] Address [address] [place] [address] Care Team Providers Care Application Programmer Analyst Name Role Phone Colton Dugan MD Primary Care Provider [phone] Active Problems Problem Noted Date Diagnosed Date Current tear of medial cartilage or meniscus of knee 06/19/2019 Enthesopathy of hip region 06/19/2019 Injury of lower extremity 06/19/2019 Knee pain 06/19/2019 Osteoarthritis of knee 06/19/2019 Pain in limb 06/19/2019 Labral tear of hip, degenerative 09/06/2018 Overview (09/06/2018): Added automatically from request for surgery [id number] Anxiety 04/19/2018 Chest pain at rest 04/19/2018 [...]
[2025-02-24 14:43] VITALS: BP 110/85; PULSE 62; RESP 21; O2SAT 99
--- NOTE | 2025-02-24 15:06 | ED_ITS ---
HPI - General Adult General Chief complaint: Chest Pain Stated complaint: CP Time Seen by Provider: 02/24/25 14:17 History of Present Illness HPI narrative: 54-year-old female smoker with history of COPD presents the emergency department for evaluation for worsening cough and shortness of breath. Patient denies any chest pain but does report chest tightness and difficulty breathing. Patient states this has been worsening since Monday. Patient did do breathing treatment last night felt that does non productive. Patient did not do any breathing treatments today. Patient denies any cardiac history. Related Data Home Medications ?Medication ?Instructions ?Recorded ?Confirmed ?Last Taken ?Type omeprazole 40 mg capsule,delayed 40 mg PO DAILY 02/24/25 02/24/25 History release cariprazine 4.5 mg capsule 4.5 mg PO DAILY 05/01/2102/24/25 History (Vraylar) albuterol 90 mcg-budesonide 80 2 inh inhalation DAILY PRN 10/10/24 02/24/25 02/23/25 History mcg/actuation HFA aerosol inhaler shortness of breath buprenorphine 4 mg-naloxone 1 mg 1 film sublingual BID 02/24/25 02/24/25 02/24/25 History sublingual film (Suboxone) Allergies Allergy/AdvReac Type Severity Reaction Status Date / Time ciprofloxacin Allergy Unknown Rash Verified 02/24/25 11:57 Sulfa (Sulfonamide Allergy Unknown Anaphylaxis Verified 02/24/25 11:57 Antibiotics) ketorolac AdvReac Intermediate Nausea Verified 02/24/25 11:57 NSAIDS (Non-Steroidal AdvReac Intermediate Nausea Verified 02/24/25 11:57 Anti-Inflamma Review of Systems 2 Review of Systems: All systems reviewed & are unremarkable except as noted in HPI and below PMFSH Past Medical History Medical History (Updated 02/25/25 @ 00:01 by Miracle Simeon) Insomnia Tobacco use disorder C. difficile diarrhea Anemia Schizoaffective disorder Previous known suicide attempt x2 Anxiety Depression History of bipolar disorder History of osteoporosis Arthritis Fibroids HPV (human papilloma virus) anogenital infection Ovarian cancer GERD (gastroesophageal reflux disease) IBS (irritable bowel syndrome) Pancreatitis Crohn's disease Asthma COPD (chronic obstructive pulmonary disease) HLD (hyperlipidemia) History of angina DJD (degenerative joint disease) Migraine Surgical History Surgical History H/O Spinal surgery T12 cartilage removed H/O right knee surgery H/O: hysterectomy History of cholecystectomy History of tonsillectomy Family History Family History Sibling Depression Hypertension Family history of elevated blood lipids Father Family history of arthritis Other Family history of anemia Family history of mental disorder Family history of thyroid disease Social History Social History (Updated 12/18/24 @ 12:52 by Lyssa Oliver [facility]) Years smoked: 30 Tobacco type: cigarettes Alcohol intake: never Drinks per week: 1 Substance use: current Substance use type: prescription drug Gender identity (if verbalized by the patient): Female Exam 2 Narrative: APPEARANCE: Well appearing, no pain, no distress, well-nourished. HEAD: normocephalic, atraumatic. EYES: PERRLA/EOMI, conjunctivae clear. NOSE: Normal no drainage EARS:TMS clear with good light reflex. THROAT: Pharynx clear, no exudate. NECK: Supple. No adenopathy, no masses. RESPIRATORY: Expiratory wheeze CARDIOVASCULAR: Regular rate and rhythm without murmurs rubs or gallops. ABDOMINAL: Soft, nontender, nondistended, normal bowel sounds MUSCULOSKELETAL: Moves all extremities. Strength/ROM intact, No edema, No calf tenderness. NEURO: Alert. Cranial nerves II through XII intact. Good gait. Good coordination SKIN: Warm, dry. Normal Color Course Vital Signs Vital signs: Vital Signs Temperature 97.5 F L 02/24/25 11:51 Pulse Rate 71 02/24/25 11:51 Respiratory Rate 20 02/24/25 11:51 Blood Pressure 93/60 L 02/24/25 11:51 Pulse Oximetry 99 02/24/25 11:51 Oxygen Delivery Room Air 02/24/25 11:51 Temperature 97.5 F L 02/24/25 11:51 Pulse Rate 88 02/24/25 18:17 Respiratory Rate 15 02/24/25 18:17 Blood Pressure 95/60 L 02/24/25 18:17 Pulse Oximetry 99 02/24/25 18:17 Oxygen Delivery Room Air 02/24/25 16:26 Medical Decision Making [facility] Narrative Medical decision making narrative: 54-year-old female presents emergency department for evaluation for worsening shortness of breath. Patient is a current smoker does have history of COPD. Patient is currently afebrile with no leukocytosis hemoglobin 12.2. Patient has an INR 1.3. No significant acute abnormalities on the patient's CMP patient had negative serial troponins. Patient was negative for influenza RSV and for COVID. Chest x-ray shows no acute cardiopulmonary abnormality. Patient was treated with 10 mg of nebulized albuterol and 125 mg of Solu-Medrol. Patient will be discharged home with antibiotics, and steroid. Due to her underlying risk code for the pain pneumonia secondary to her COPD. Differential Diagnosis Differential Diagnosis: Pneumonia, COPD, COVID, RSV, and influenza a, pneumothorax Vital Signs Vital Signs: Vital Signs Temperature 97.5 F L 02/24/25 11:51 Pulse Rate 71 02/24/25 11:51 Respiratory Rate 20 02/24/25 11:51 Blood Pressure 93/60 L 02/24/25 11:51 Pulse Oximetry 99 02/24/25 11:51 Oxygen Delivery Room Air 02/24/25 11:51 Temperature 97.5 F L 02/24/25 11:51 Pulse Rate 88 02/24/25 18:17 Respiratory Rate 15 02/24/25 18:17 Blood Pressure 95/60 L 02/24/25 18:17 Pulse Oximetry 99 02/24/25 18:17 Oxygen Delivery Room Air 02/24/25 16:26 Lab Data Lab results reviewed: Yes I reviewed the patient's lab results. 02/24/25 12:03 02/24/25 12:03 Labs: Lab Results 02/24/25 02/24/25 02/24/25 Range/Units 12:03 12:35 15:02 WBC 8.1 (4.5-10.0) K/mm3 RBC 3.85 L (4.2-5.4) M/mm3 Hgb 12.2 (12.0-15.0) g/dL Hct 36.0 L (37.0-47.0) % MCV 93.5 (80-100) fl MCH 31.7 (26-34) pg MCHC 33.9 (32-36) g/dl RDW 12.0 (11.5-14.5) % Plt Count 222 (150-375) k/mm3 MPV 8.8 (7.4-10.4) fl Immature Gran % (Auto) 0.4 (0-0.5) % Neut % (Auto) 69.9 (45.5-73.1) % Lymph % (Auto) 23.1 (18.3-44.2) % Blount % (Auto) 6.4 (2.6-8.5) % Eos % (Auto) 0.1 (0-4.4) % Baso % (Auto) 0.1 L (0.2-1.2) % Lymph # (Auto) 1.87 (0.9-3.2) K/mm3 Blount # (Auto) 0.5 (0.1-0.6) K/mm3 Eos # (Auto) 0.0 (0-0.3) K/mm3 Baso # (Auto) 0.0 (0.0-0.1) K/mm3 Abs Immat Gran (auto) 0.03 (0.00-0.031) K/mm3 Absolute Neuts (auto) 5.7 (1.3-6.7) K/mm3 Absolute Nucleated RBC 0.000 (0.0-0.012) K/mm3 Nucleated RBC % 0.0 (0.0-0.2) % PT 15.6 H (11.1-14.7) Seconds INR 1.3 APTT 28.6 (22.3-36.8) Seconds Sodium 135 L (137-145) mmol/L Potassium 3.8 (3.4-5.0) mmol/L Chloride 100 (98-107) mmol/L Carbon Dioxide 27 (22-30) mmol/L Anion Gap 8 (4-12) mmol/L BUN 4 L D (7-17) mg/dL Creatinine 0.61 L (0.7-1.0) mg/dL Estim Creat Clear Calc 76 ml/min Estimated GFR > 60 (59 - ) Glucose 111 H (65-110) mg/dL Calcium 8.9 (8.4-10.2) mg/dL Total Bilirubin 0.5 (0.2-1.3) mg/dL AST 28 (14-36) U/L ALT 16 (6-35) U/L Alkaline Phosphatase 79 (38-126) U/L Troponin I < 0.012 < 0.012 (0.000-0.034) ng/mL Total Protein 7.0 (6.3-8.2) g/dL Albumin 4.1 (3.5-5.1) g/dL Lipase 22 L (23-300) U/L Influenza A (RT-PCR) Negative (Negative) Influenza B (RT-PCR) Negative (Negative) RSV (RT-PCR) Negative (Negative) SARS-CoV-2 RNA (RT-PCR) Negative (Negative) Imaging Data Attestation: I personally reviewed and interpreted this imaging study as follows: My impression: Chest x-ray: No acute cardiopulmonary abnormality Discharge Plan Discharge Clinical Impression: COPD (chronic obstructive pulmonary disease) Patient Disposition: Home Condition: Stable Instructions: Antibiotic Form, COPD (Chronic Obstructive Pulmonary Disease) (DC) Additional Instructions: Home albuterol as directed. Antibiotic as directed until completed. Prednisone as directed until completed. Have close follow-up with your primary care physician. If you have any worsening symptoms and please call or return to the emergency department. Patient Language: Sami Prescriptions: New azithromycin 250 mg tablet See Rx Instructions .ROUTE .COMPLEX Qty: 6 0RF Rx Instructions: For 250 mg dose pack: take 500 mg today (day 1), then 250 mg for 4 days (days 2-5) prednisone 50 mg tablet 50 mg PO DAILY 5 Days Qty: 5 0RF amoxicillin-pot clavulanate 875-125 mg tablet 1 tablet PO Q12H 7 Days Qty: 14 0RF No Action Vraylar 4.5 mg capsule 4.5 mg PO DAILY albuterol-budesonide 90-80 mcg/actuation HFA aerosol inhaler 2 inh inhalation DAILY PRN (Reason: shortness of breath) sumatriptan succinate 25 mg tablet See Rx Instructions PO .COMPLEX Qty: 20 0RF Rx Instructions: take 1 tab at onset of headache; if no relief may repeat 1 tab after at least 2 hrs; max = 4 tabs/24 hr PO hydroxyzine HCl 50 mg tablet 50 mg PO QHS PRN (Reason: insomnia) Qty: 90 0RF trazodone 100 mg tablet 100 mg PO QHS PRN (Reason: insomnia) Qty: 90 0RF omeprazole 40 mg capsule,delayed release(DR/EC) 40 mg PO DAILY ondansetron 4 mg tablet,disintegrating 4 mg PO Q8H PRN (Reason: nausea and vomiting) Qty: 14 0RF buprenorphine-naloxone [Suboxone] 4-1 mg film 1 film sublingual BID Follow-up/Referrals: Alexis Jules DO [Primary Care Provider, Family Practice]
--- NOTE | 2025-02-24 15:06 | ECG_ITS ---
Test Date: 2025-02-24 15:10:08 Measurements Intervals [place] Rate: 62 P: 75 WY: 153 QRS: 75 QRSD: 91 T: 70 QT: 434 QTc: 442 Interpretive Statements SINUS RHYTHM POSSIBLE LEFT ATRIAL ENLARGEMENT [-0.1mV P-WAVE IN V1/V2] Compared to ECG 02/24/2025 11:57:50 T-wave abnormality no longer present Electronically Signed On 02-25-2025 18:03:46 FINISHER SCREWDOWN by Josef Reynoso M.D.
[2025-02-24] MEDS: ALBUTEROL SULFATE NEB 2.5 MG/3 ML INH 10 MG INHALATION (15:14)
[2025-02-24 15:38] LABS: Troponin I < 0.012 ng/mL (0.000-0.034)
[2025-02-24 16:25] VITALS: BP 90/64; PULSE 64; RESP 12; O2SAT 97
[2025-02-24] MEDS: AZITHROMYCIN 250 MG TABLET 500 MG PO (18:09)
[2025-02-24 18:17] VITALS: BP 95/60; PULSE 88; RESP 15; O2SAT 99
== END 2025-02-24 18:20 | disposition home or self-care (01) ==
PROVIDERS: Student in an Organized Health Care Education/Training Program; Emergency Provider Emergency Medicine; PCP Family Medicine
DX: J44.9 Chronic obstructive pulmonary disease, unspecified (principal); Z20.822 Contact with and (suspected) exposure to COVID-19; D64.9 Anemia, unspecified; F41.9 Anxiety disorder, unspecified; F32.A Depression, unspecified; M19.90 Unspecified osteoarthritis, unspecified site; K21.9 Gastro-esophageal reflux disease without esophagitis; E78.5 Hyperlipidemia, unspecified; F17.210 Nicotine dependence, cigarettes, uncomplicated
CPT/HCPCS: 36415; 71046; 80053; 83690; 84484; 85025; 85610; 85730; 87637; 93005; 96374; 99284; A9270; J2919

== ENCOUNTER 2025-04-05 15:50 | Emergency (ER) | payer MEDICARE, SELFPAY ==
--- NOTE | ~2025-04-05 | XR_ITS ---
EXAMINATION: XR knee RT min 4V DATE: 04/05/2025 17:55 INDICATION: Right knee pain. No mention of trauma. TECHNIQUE: 4 views of right knee were obtained. COMPARISON: None. FINDINGS: No acute bony lesion at the right knee. Ossified lesions of the metaphyseal region of the distal femur and proximal tibia suggestive of bone infarcts. Chondrocalcinosis of the menisci and articular cartilage of the knee. Grade 2 degenerative changes of the medial compartment. Presence of large effusion in the knee joint on the lateral view within the suprapatellar bursa. IMPRESSION: 1. 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 2. Chondrocalcinosis of menisci and articular cartilage. Large effusion in the knee joint. Symptoms are persistent and not responding to conservative treatment, MRI is indicated. Reviewed, dictated and finalized at location [facility] IMPRESSION: 1. 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 2. Chondrocalcinosis of menisci and articular cartilage. Large effusion in the knee joint. Symptoms are persistent and not responding to conservative treatmen t, MRI is indicated.
[2025-04-05 15:52] VITALS: BP 102/70; PULSE 97; RESP 16; TEMP 36.5; O2SAT 99
--- OUTSIDE RECORDS SUMMARY | 2025-04-05 18:00 | XMS_ITS | Encounter Summary ---
Author Organization [facility] Healthcare Address [address] [place] [address] Care Team Providers Care Medical Lab Tech Instructor Name Role Phone Colton Dugan MD Primary Care Provider [phone] Reason for Visit * Reason Onset Date Comments Appointment 08/09/2018 Encounter Details Date Type Department Care Team (Late st Contact Info) Description 08/09/2018 Telephone [facility] [place] [facility] [address] [facility] [address] [place] [address] Marilyn Schwartz MD [address] [facility] [address] [place] [address] Appointment Social History Tobacco Use Types Packs/Day Years Used Date Smoking Tobacco: Former Smokeless Tobacco: Never Alcohol Use Standard Drinks/Week Comments Yes 0 (1 standard drink = 0.6 oz pur e alcohol) Comments No Sex and Gender Information Value Date Recorded Sex Assigned at Not on file Legal Sex Female 5:21 PM TECHNICAL AGRONOMIST Gender Identity Female 05/03/2021 9:56 AM TECHNICAL AGRONOMIST Sexual Orientation Not on file Occupation Industry [...] on stairs Contact your local community or [facility] for information on exercise, fall prevention programs, or options for improving home safety. documented as of this encounter Visit Diagnoses Not on filedocumented in this encounter Additional Health Concerns Infection Onset Date Last Indicated Resolved Time C. difficile 08/14/2018 08/13/2018 documented as of this encounter Care Teams Medical Lab Tech Instructor Relationship Specialty Start Date End Date Colton Dugan MD PCP - General Family Medicine 04/02/18 documented as of this encounter
--- OUTSIDE RECORDS SUMMARY | 2025-04-05 18:00 | XMS_ITS ---
Author Organization [facility] Address [address] [place] [address] Care Team Providers Care Bin Worker Name Role Phone Colton Dugan MD Primary Care Provider [phone] Active Problems Problem Noted Date Diagnosed Date Current tear of medial cartilage or meniscus of knee 06/19/2019 Enthesopathy of hip region 06/19/2019 Injury of lower extremity 06/19/2019 Knee pain 06/19/2019 Osteoarthritis of knee 06/19/2019 Pain in limb 06/19/2019 Labral tear of hip, degenerative 09/06/2018 Overview (09/06/2018): Added automatically from request for surgery [id number] Anxiety 04/19/2018 Chest pain at rest 04/19/2018 [...]
--- OUTSIDE RECORDS SUMMARY | 2025-04-05 18:00 | XMS_ITS | Encounter Summary ---
Author Organization [facility] Address [address] [place] [address] Care Team Providers Care Assembly Machine Offbearer Name Role Phone Colton Dugan MD Primary Care Provider [phone] Santo Constantino MD Primary Care Provider [phone] Encounter Details Date Type Department Care Team (Late st Contact Info) Description 10/31/2017 Abstract [facility] CONVERSION [address] [place] [address] , Generic Conversion, Social History Tobacco Use Types Packs/Day Years Used Date Smoking Tobacco: Never Assessed Comments Unknown Sex and Gender Information Value Date Recorded Sex Assigned at Female 05/22/2024 11:06 AM INVESTMENT TRADER Legal Sex Female 7:23 PM CDT Gender [...] Rule Out 04/02/2020 04/02/2020 04/03/2020 5:27 PM INVESTMENT TRADER COVID-19 Rule Out 06/27/2020 06/27/2020 06/28/2020 10:26 AM CDT COVID-19 Rule Out 05/23/2024 05/23/2024 05/23/2024 3:35 PM INVESTMENT TRADER documented as of this encounter Care Teams Assembly Machine Offbearer Relationship Specialty Start Date End Date Colton Dugan MD [address] [place] [address] PCP - General FAMILY PRACTICE 12/08/19 12/10/19 [place] [address] [place] [address] PCP - General FAMILY PRACTICE 12/11/19 documented as of this encounter
--- OUTSIDE RECORDS SUMMARY | 2025-04-05 18:00 | XMS_ITS | Patient Health Record ---
Author Organization [facility] Address [address] [place], [place] [id number] Care Team Providers Care Education Nurse Name Role Phone JESUS STRINGER Unavailable [phone] Santo Constantino Unavailable Unavailable Reason For Referral No Information Plan Of Treatment No Information Insurance Providers Payer Name Payer Address Payer Phone Subscriber Number Group Number Insured Name Patient Relationship to Insured Coverage Start Date Coverage End Date Medicare Part B [place] [address] [place] [address] [id number] [place] Self - patient is the insured [facility] [address] [place], [place] [id number] [place] Self - patient is the insured
--- OUTSIDE RECORDS SUMMARY | 2025-04-05 18:00 | XMS_ITS | Encounter Summary ---
Author Organization [facility] Healthcare Address [address] [place] [address] Care Team Providers Care Key Account Executive Name Role Phone Colton Dugan MD Primary Care Provider [phone] Reason for Visit * Reason Onset Date Comments Updated pharmacy 06/28/2019 Encounter Details Date Type Department Care Team (Late st Contact Info) Description 06/28/2019 Telephone [facility] at [facility] [address] [facility] [address] [place] [address] Marilyn Schwartz MD [address] [facility] [address] [place] [address] Updated pharmacy Social History Tobacco [...] on file Legal Sex Female 5:21 PM METAL DRILL OPERATOR Gender Identity Female 05/03/2021 9:56 AM METAL DRILL OPERATOR Sexual Orientation Not on file Occupation Industry [...] on stairs Contact your local community or [facility] for information on exercise, fall prevention programs, or options for improving home safety. documented as of this encounter Visit Diagnoses Not on filedocumented in this encounter Additional Health Concerns Infection Onset Date Last Indicated Resolved Time C. difficile 08/14/2018 08/13/2018 documented as of this encounter Care Teams Key Account Executive Relationship Specialty Start Date End Date Colton Dugan MD PCP - General Family Medicine 04/02/18 documented as of this encounter
--- OUTSIDE RECORDS SUMMARY | 2025-04-05 18:00 | XMS_ITS | Clinical Summary ---
Author Organization [facility] Address [address] [place] [address] Care Team Providers Care Volcanology Professor Name Role Phone Kodak Dillard MD Unavailable Maxwell Barrera DO Primary Care Provider Source Comments [facility],non-owned Affiliates and Associated Physician Practices is amultiple site organization consisting of ambulatory clinics and hospital sitesin [place], [place], [place] and [place]. This disclosure is being madepursuant to the Care Everywhere program and may not contain all information available regarding this patient. Last updated 18.[facility] Allergies Active Allergy Reactions Criticality Noted [...] on file Legal Sex Female 9:19 AM RADIOLOGIC TECHNOLOGIST Gender Identity Not on file Sexual Orientation Not on file Last Filed Vital Signs Vital Sign Reading Time Taken Comments Blood Pressure 115/75 03/10/2017 3:51 PM RADIOLOGIC TECHNOLOGIST Pulse 66 03/10/2017 3:51 PM RADIOLOGIC TECHNOLOGIST Temperature 36.9 C (98.5 F) 03/10/2017 1:51 PM RADIOLOGIC TECHNOLOGIST Respiratory Rate 16 03/10/2017 3:51 PM RADIOLOGIC TECHNOLOGIST Oxygen Saturation 100% 03/10/2017 3:51 PM RADIOLOGIC TECHNOLOGIST Inhaled Oxygen Concentration 21% 02/12/2016 5 :07 AM CDT Weight 59 kg (130 lb) 03/10/2017 1:51 PM RADIOLOGIC TECHNOLOGIST Height 171.5 cm (5' 7.5) 03/10/2017 1:51 PM RADIOLOGIC TECHNOLOGIST Body Mass Index 20.06 03/10/2017 1:51 PM RADIOLOGIC TECHNOLOGIST Plan of Treatment Health Maintenance Due Date [...] of 2) 06/15/2021 COVID-19 VACCINE (1 - 2024-2 6 season) 2024 INFLUENZA VACCINE (#1) 2024 6, [...] Immunoassay Negative Negative 02/10/2016 7:22 PM CDT [facility] Stool STOOL SPECIMEN / Unknown 02/10/2016 6:53 PM CDT 02/10/2016 7:06 PM CDT Sarah Isbell GYM INSTRUCTOR-GAUGE AND WEIGH MACHINE OPERATOR LAB - MICROBIOLOGY ORD ERABLES Final Result Performing Organization Address City/State/[facility] Co de Phone Number [facility] [address] from Last 3 Months or Most [...] 11:24 PM 04/28/2015 5:23 PM Care Teams Volcanology Professor Relationship Specialty Start Date End Date Maxwell Barrera DO [address] [place] [address] PCP - General 10/16/18 Kodak Dillard MD [address] [place] [address] Pain Management Physical Medicine and Rehabilitation 07/03/15
--- OUTSIDE RECORDS SUMMARY | 2025-04-05 18:00 | XMS_ITS | Encounter Summary ---
Author Organization [facility] Address [address] [place] [address] Phone Care Team Providers Care Attendant Lodging Facilities Name Role Phone Unknown, Notinfile Primary Care Provider Unavail able Colton Dugan MD Primary Care Provider [phone] Encounter Details Date Type Department Care Team (Late st Contact Info) Description 02/20/2018 Orders Only [facility] Orthopaedic Surgery [address] [facility] 2[address] [place] [id number] Ian Seals, DAVE [address] [place], [place] [id number] Social History Tobacco Use Types Packs/Day Years Used Date Smoking Tobacco: Every Day Comments No Sex and Gender Information Value Date Recorded Sex Assigned at Not on file Legal Sex Female 5:21 PM NAPKIN MACHINE OPERATOR Gender Identity Female 05/03/2021 9:56 AM NAPKIN MACHINE OPERATOR Sexual Orientation Not on file documented as of this encounter Plan of Treatment Not on file documented as of this encounter Visit Diagnoses Not on filedocumented in this encounter Additional Health Concerns Infection Onset Date Last Indicated Resolved Time C. difficile 08/14/2018 08/13/2018 documented as of this encounter Care Teams Attendant Lodging Facilities Relationship Specialty Start Date End Date Unknown, Yojana PCP - General 12/19/17 04/01/18 Colton Dugan MD PCP - General Family Medicine 04/02/18 documented as of this encounter
--- OUTSIDE RECORDS SUMMARY | 2025-04-05 18:00 | XMS_ITS | Encounter Summary ---
Author Organization [facility] Address [address] [place] [address] Care Team Providers Care Security Systems Engineer Name Role Phone Santo Constantino MD Primary Care Provider [phone] Encounter Details Date Type Department Care Team (Late st Contact Info) Description 09/26/2022 O[employer]rive Message Enc [facility] Medical [facility] Multispecialty Care - [facility] [address] [facility], [address] [place] [address] [facility] Provider Time Social History Tobacco Use Types [...] Sex Assigned at Female 05/22/2024 11:06 AM ANIMAL HOSPITAL CLERK Legal Sex Female 7:23 PM CDT Gender Identity Not on file Sexual Orientation Not on file documented as of this encounter Plan of Treatment Not on file documented as of this encounter Goals Goal Patient Goal Type Associated Problems Recent Progress Patient-Stated? Author HOME TO [facility]DEP[facility]IV[facility] General No Nel Herrera RN documented as of this encounter Visit Diagnoses Not on filedocumented in this encounter Additional Health Concerns Infection Onset Date Last Indicated Resolved Time COVID-19 Rule Out 05/23/2024 05/23/2024 05/23/2024 3:35 PM ANIMAL HOSPITAL CLERK Assessment Noted Time PHQ-9 Depression Total Score: 2 12/25/19 22 2:12 PM CDT documented as of this encounter Care Teams Security Systems Engineer Relationship Specialty [place] [address] [place] [address] PCP - General FAMILY PRACTICE 12/11/19 documented as of this encounter
--- OUTSIDE RECORDS SUMMARY | 2025-04-05 18:00 | XMS_ITS | Clinical Summary ---
Author Organization [facility] Address [address] [place] [address] Care Team Providers Care Translation Director Name Role Phone Santo Constantino MD Primary [...] daily. 12 g 5 07/27/19 24 Active ezetimibe (ZETIA) 10 MG tabletIndications: [...] symptoms persist. 2 tablet 06/20/19 25 Active hydrOXYzine (ATARAX) 50 MG tabletIndications: Anxiety Take 1 tablet (50 mg total) by mouth every 6 (six) hours as needed for Itching. 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 06/01/2020 Overview (06/01/2020): Added automatically from request for surgery [id number] Crohn's disease with complic ation, unspecified gastrointestinal tract location 06/01/2020 Overview (06/01/2020): Added automatically from request for surgery [id number] Weight loss 06/01/2020 Overview (06/01/2020): Added automatically from request for surgery [id number] Diarrhea 06/01/2020 Overview (06/01/2020): Added automatically from request for surgery [id number] Enteritis 12/08/2019 Current tear of medial cartilage or meniscus of knee 06/19/2019 Enthesopathy of hip region 06/19/2019 Injury of lower limb 06/19/2019 Labral tear of hip, degenerative 09/06/2018 Overview (10/14/2020): Added automatically from request for surgery [id number] Added automatically from request for surgery [id number] Anxiety 04/19/2018 Smoker 02/26/2018 Overview (10/14/2020): Overview: Current Current Overview: Current Current Bipolar 1 disorder, manic, moderate 05/27/2015 DDD (degenerative disc disease), lumbar 05/08/19 16 Crohn's disease of large intestine with complica tion 05/08/2015 Anemia 04/07/2015 Functional abdominal pain syndrome 03/10/2015 Functional diarrhea 03/09/2015 Chronic pain 02/09/2015 Difficulty in swallowing 01/20/2015 GERD (gastroesophageal reflux disease) 5 Chest pain at rest 11/13/2014 Sensation of feeling hot 07/29/2014 Chronic lower back pain 07/17/2014 Crohn's disease 05/09/2014 Bipolar 1 disorder 05/09/2014 Other depressive disorder 04/16/2013 Bronchial asthma 03/06/2013 Hypercholesterolemia 03/06/2013 Migraine 03/06/2013 Schizoaffective disorder, bipolar type 3 Other hyperlipidemia 06/25/2012 Resolved Problems Problem Noted Date Diagnosed Date Resolved Date Chronic obstructive pulmonary disease 01/01/2015 10/14/2020 Knee pain 07/17/2014 10/14/2020 Immunizations Immunization Administration Dates Next Due Fluzone [...] Sex Assigned at Female 05/22/2024 11:06 AM MANAGER MATH Legal Sex Female 7:23 PM CDT Gender Identity Not on file Sexual Orientation Not on file Last Filed Vital Signs Vital Sign Reading Time Taken Comments Blood Pressure 123/82 05/23/2024 2:54 PM MANAGER MATH Pulse 62 05/23/2024 2:54 PM MANAGER MATH Temperature 36.6 C (97.9 F) 05/23/2024 2:54 PM MANAGER MATH Respiratory Rate 16 05/23/2024 2:54 PM MANAGER MATH Oxygen Saturation 95% 05/23/2024 2:54 PM MANAGER MATH Inhaled Oxygen Concentration - - Weight 65.3 kg (144 lb) 05/23/2024 2:54 PM MANAGER MATH Height 170.2 cm (5' 7) 05/23/2024 2:54 PM MANAGER MATH Body Mass Index 22.55 05/23/2024 2:54 PM MANAGER MATH Plan of Treatment Health Maintenance Due Date Last Done Comments Annual Physical 06/15/1974 Hepatitis C 06/15/1989 Hepatitis B Vaccines (1 of 3 - 19+ 3-dose series) 06/15/1990 Pneumococcal Vaccine: 50+ Years (2 of 2 - PCV) 02/24/2016 02/23/2015, 12/16/2010 Lung Cancer Screening 06/15/2021 Zoster Vaccines (2 of 2) 05/25/2022 03/30/2022 Mammogram Screening 11/05/2022 11/05/2020 EGD-Higgins's Surveillance 07/01/2023 06/30/2020 PHQ-2 (Physician Sandy) 04/17/2024 02/01/2024 COVID-19 Vaccine (5 - season) 2024 03/30/2022, 03/09/2021, 07/07/2020, Additional history exists Influenza Adult (#1) 2025 03/02/2022, 01/26/2021, 12/14/2019, Additional history exists DTaP, Tdap and Td Vaccines (1 - Tdap) 12/17/2028 Postponed from 06/15/1990 (Per Provider Recommendation) Colorectal Cancer Screening Colonoscopy (10 Years) 06/30/2030 06/30/2020 Colorectal Cancer Screening FIT/FOBT (1 Year) Discontinued 03/31/2020, 02/10/2016 Hepatitis A Vaccines Aged Out No long er eligible based on patient's age to complete this topic Meningococcal B Vaccine Aged Out No l [...] Recent Progress Patient-Stated? Author HOME TO [facility] Nel Galvez online community manager Procedure Name Priority Date/Time Associated Diagnosis Comments MG SCREENING W GENE JANE DIGI Routine 11/05/2020 2:40 PM CDT Encounter for screening mammogram for malignant neoplasm of breast COLONOSCOPY/EGD GENERIC (SCAN ORDER) 06/30/2020 OCCULT BLOOD, FECES STAT 03/31/2020 3 :30 PM MANAGER MATH from Last 3 Months or Most Recently Relevant to Health Maintenance Results * MG SCREENING W GENE JANE DIGI [...] Boateng, 11/05/2020 3:38 PM us Wellington Goodwin GRUBBER-BC MAMMO Final Re sult * COLONOSCOPY/EGD GENERIC (06/30/2020) 06/30/2020 Narrative 06/30/2020 Ordered by an unspecified provider. us Documents Scanned SCANNING Final Result * OCCULT BLOOD, FECES (03/31/2020 3:30 PM MANAGER MATH) OCCULT BLOOD FECAL NEGATIVE NEGATIVE 03/31/2020 3:50 PM MANAGER MATH [facility] STOOL SPECIMEN / Unknown 03/31/2020 3:30 PM MANAGER MATH us Jaun Arzola MD BODY FLUIDS AND STOOLS ORDERABLE S Final Result [facility] [address] [place] [address], [place] [phone] from Last 3 Months or Most Recently Relevant to Health Maintenance Insurance MEDICARE Advance Directives Documents on File Type Date Recorded Patient Switchbox Assembler Expl anation Advance Directives and Living Will 06/30/2020 12:00 AM ADVANCED DIRECTIVES Advance Directives and Living Will 12/09/2019 9:05 AM 04/06/15 HEALTH CARE POA Advance Directives and Living Will 12/19/2017 12:00 AM POWER OF RESIDENT PROGRAMS ASSISTANT FO R HEALTH CARE Advance Directives and Living Will 12/19/2017 12:00 AM POWER OF RESIDENT PROGRAMS ASSISTANT FO R HEALTH CARE Advance Directives and Living Will 11/01/2017 12:00 AM POWER OF RESIDENT PROGRAMS ASSISTANT FO R HEALTH CARE Advance Directives and Living Will 11/01/2017 12:00 AM POWER OF RESIDENT PROGRAMS ASSISTANT FO R HEALTH CARE Advance Directives and Living Will 10/31/2017 12:00 AM POWER OF RESIDENT PROGRAMS ASSISTANT FO R HEALTH CARE Advance Directives and Living Will 10/31/2017 12:00 AM POWER OF RESIDENT PROGRAMS ASSISTANT FO R HEALTH CARE Advance Directives and Living Will 10/08/2017 12:00 AM POWER OF RESIDENT PROGRAMS ASSISTANT FO R HEALTH CARE Advance Directives and Living Will 10/08/2017 12:00 AM POWER OF RESIDENT PROGRAMS ASSISTANT FO R HEALTH CARE Advance Directives and Living Will 09/07/2017 12:00 AM POWER OF RESIDENT PROGRAMS ASSISTANT FO R HEALTH CARE Advance Directives and Living Will 09/07/2017 12:00 AM POWER OF RESIDENT PROGRAMS ASSISTANT FO R HEALTH CARE Advance Directives and Living Will 11/27/2016 12:00 AM POWER OF RESIDENT PROGRAMS ASSISTANT FO R HEALTH CARE Advance Directives and Living Will 11/27/2016 12:00 AM POWER OF RESIDENT PROGRAMS ASSISTANT FO R HEALTH CARE Advance Directives and Living Will 10/20/2016 12:00 AM POWER OF RESIDENT PROGRAMS ASSISTANT FO R HEALTH CARE Advance Directives and Living Will 10/20/2016 12:00 AM POWER OF RESIDENT PROGRAMS ASSISTANT FO R HEALTH CARE Advance Directives and Living Will 10/13/2016 12:00 AM POWER OF RESIDENT PROGRAMS ASSISTANT FO R HEALTH CARE Advance Directives and Living Will 10/13/2016 12:00 AM POWER OF RESIDENT PROGRAMS ASSISTANT FO R HEALTH CARE Advance Directives and Living Will 10/02/2016 12:00 AM POWER OF RESIDENT PROGRAMS ASSISTANT FO R HEALTH CARE Advance Directives and Living Will 10/02/2016 12:00 AM POWER OF RESIDENT PROGRAMS ASSISTANT FO R HEALTH CARE Advance Directives and Living Will 10/02/2016 12:00 AM POWER OF RESIDENT PROGRAMS ASSISTANT FO R HEALTH CARE Advance Directives and Living Will 10/02/2016 12:00 AM POWER OF RESIDENT PROGRAMS ASSISTANT FO R HEALTH CARE Advance Directives and Living Will 09/14/2016 12:00 AM POWER OF RESIDENT PROGRAMS ASSISTANT FO R HEALTH CARE Advance Directives and Living Will 09/14/2016 12:00 AM POWER OF RESIDENT PROGRAMS ASSISTANT FO R HEALTH CARE Advance Directives and Living Will 09/06/2016 12:00 AM POWER OF RESIDENT PROGRAMS ASSISTANT FO R HEALTH CARE Advance Directives and Living Will 09/06/2016 12:00 AM POWER OF RESIDENT PROGRAMS ASSISTANT FO R HEALTH CARE Advance Directives and Living Will 09/06/2016 12:00 AM POWER OF RESIDENT PROGRAMS ASSISTANT FO R HEALTH CARE Advance Directives and Living Will 09/06/2016 12:00 AM POWER OF RESIDENT PROGRAMS ASSISTANT FO R HEALTH CARE Advance Directives and Living Will 05/17/2016 12:00 AM POWER OF RESIDENT PROGRAMS ASSISTANT FO R HEALTH CARE Advance Directives and Living Will 05/17/2016 12:00 AM POWER OF RESIDENT PROGRAMS ASSISTANT FO R HEALTH CARE Advance Directives and Living Will 03/02/2016 12:00 AM POWER OF RESIDENT PROGRAMS ASSISTANT FO R HEALTH CARE Advance Directives and Living Will 03/02/2016 12:00 AM POWER OF RESIDENT PROGRAMS ASSISTANT FO R HEALTH CARE Advance Directives and Living Will 01/18/2016 12:00 AM POWER OF RESIDENT PROGRAMS ASSISTANT FO R HEALTH CARE Advance Directives and Living Will 01/18/2016 12:00 AM POWER OF RESIDENT PROGRAMS ASSISTANT FO R HEALTH CARE Advance Directives and Living Will 11/25/2015 12:00 AM POWER OF RESIDENT PROGRAMS ASSISTANT FO R HEALTH CARE Advance Directives and Living Will 11/25/2015 12:00 AM POWER OF RESIDENT PROGRAMS ASSISTANT FO R HEALTH CARE * Full Code (Latest Code Status on File) Date Activated Date Inactivated Comments 12/08/2019 5:13 PM 12/10/2019 4:21 PM * Full Code Date Activated Date Inactivated Comments 12/08/2019 4:26 PM 12/08/2019 5:13 PM Care Teams Translation Director Relationship Specialty [place] [address] [place] [address] PCP - General FAMILY PRACTICE 12/11/19
--- OUTSIDE RECORDS SUMMARY | 2025-04-05 18:00 | XMS_ITS | Encounter Summary ---
Author Organization [facility] Address [facility] [place] [address] Care Team Providers Care Claims Service Representative Name Role Phone Md Generic Conversion Primary [...] Barreraony L DO Primary Care Provider + [phone] BarreraAshley alony L DO Primary Care Provider + [phone] Barrera Maxwell L DO Primary Care Provider + [phone] Barrera Maxwell L DO Primary Care Provider + [phone] Barrera Maxwell L DO Primary Care Provider + [phone] Barrera, Maxwell L DO Primary Care Provider + [phone] Md Generic Conversion Primary Care Provider Unavailable Md Generic Conversion Primary Care Provider Unavailable Md Generic Conversion Primary Care Provider Unavailable Md Generic Conversion Primary Care Provider Unavailable Veronique Murillo MD Primary Care Provider + [phone] Veronique Murillo MD Primary Care Provider [phone] Md Generic Conversion Primary Care Provider Unavailable Md Generic Conversion Primary Care Provider Unavailable Huy Cyr MD Primary Care Provider [phone] Gordo Atkinson DO Primary Care Provider [phone] Colton Dugan MD Primary Care Provider + [phone] Santo Constantino MD Primary Care Provider Encounter Details Date Type Department Care Team (Late st Contact Info) Description 03/12/2012 Abstract [facility] Conversion Md Generic ConversionMD Social History Tobacco Use Types Packs/Day Years Used Date Smoking Tobacco: Never Assessed Comments Unknown Sex and Gender Information Value Date Recorded Sex Assigned at Female 05/22/2024 11:[address] MAINTENANCE SUPERVIS[address] Legal Sex Female 7:23 PM CDT [...] Rule Out 04/02/2020 04/02/2020 04/03/2020 5:[address] MAINTENANCE SUPERVIS[address] COVID-19 Rule Out 06/27/2020 06/27/2020 06/28/2020 10:26 AM CDT COVID-19 Rule Out 05/23/2024 05/23/2024 05/23/2024 3:[address] MAINTENANCE SUPERVISOR documented as of this encounter Care Teams Claims Service Representative Relationship Specialty Start Date End Date Md Generic Conversion, PCP - General 02/22/15 Md Generic Conversion, PCP - General 02/11/15 Md Generic Conversion, PCP - General 02/09/1502/10 Md Generic Conversion, PCP - General 02/08/1502/08 Md Generic Conversion, PCP - General 02/07/1502/07 Md Generic Conversion, PCP - General 02/06/1502/06 Md, Generic Conversion, [...] Generic Conversion, MD PCP - General 12/03/14 Md, Generic Conversion, MD PCP - General 11/25/14 Md, Generic Conversion, MD PCP - General 11/04/14 Maxwell Barrera DO PCP - General 09/11/14 11/03/14 Maxwell Barrera DO PCP - General 09/05/14 09/10/14 Maxwell Barrera DO PCP - General 08/13/14 09/04/14 Maxwell Barrera DO PCP - General 07/31/14 08/12/14 Maxwell Barrera DO PCP - General 07/29/14 07/30/14 Maxwell Barrera DO PCP - General 07/17/14 07/28/14 Md, Generic Conversion, PCP - General 07/13/14 5 , Generic Conversion, PCP - General 06/18/14 Md, Generic Conversion, PCP - General 05/02/14 5 , Generic Conversion, MD PCP - General 04/13/14 Veronique Murillo MD PCP - General 03/12/14 04/12/14 Veronique Murillo MD PCP - General 01/30/14 03/11/14 , Generic Conversion, PCP - General 12/15/1301/29 , Generic Conversion, PCP - General 11/20/12 Huy Cyr MD PCP - General 11/07/12 11/19/12 Gordo Atkinson DO PCP - General 09/29/11 11/06/12 Colton Dugan MD [address] [place] [address] PCP - General FAMILY PRACTICE 12/08/19 12/10/19 [place] [address] [place] [address] PCP - General FAMILY PRACTICE 12/11/19 documented as of this encounter
--- OUTSIDE RECORDS SUMMARY | 2025-04-05 18:00 | XMS_ITS | Clinical Summary ---
Author Organization [facility] Address [address] [place] [address] Care Team Providers Care Rougher Operator Name Role Phone Colton Dugan MD Primary Care Provider [phone] Allergies Active Allergy Reactions Criticality Noted Date [...] (09/06/2018): Added automatically from request for surgery [id number] Anxiety 04/19/2018 Chest pain at rest 04/19/2018 [...] later told pleurasy. Never followed up with [employer]. Pain MD feels it may be due [...] history of malignant neoplasm - (Added by [employer] Conv) Arthritis Father Cancer Father Family history of malignant neoplasm - (Added by TW Conv) Clotting disorder Father Hypertension Father Stroke Father Arthritis Mother Clotting disorder Mother Lung disease Mother Mental illness Mother Heart disease Other 1 Heart Disease - (Added by TW Conv) Hypertension Other 2 Hypertension - (Added by TW Conv) Cancer Other 3 Cancer - (Added by [employer] Conv) Cancer Other 4 Family history of [...] on file Legal Sex Female 5:21 PM TEST PREPARER Gender Identity Female 05/03/2021 9:56 AM TEST PREPARER Sexual Orientation Not on file Occupation Industry [...] home safety. Medical Devices Implanted Type Area Medical Transcription Supervisor Device Identifier Shelf Expiration Date Model / Serial / Lot [employer] [id number] [facility] Knotless Operator Maintainer Lock [place] Suture Labrum - [id number] Implanted:Qty: 1 on 11/28/2018 by Manuela Graham MD at [facility] [place] Right: Hip [employer] [id number] 01/11/2020 [id number] / / [id number] [employer] [id number] [employer] Knotless Operator Maintainer Lock [place] Suture Labrum - [id number] Implanted:Qty: 1 on 11/28/2018 by Manuela Graham MD at [facility] [place] Right: Hip [employer] [id number] 01/11/2020 [id number] / / [id number] [employer] [id number] [employer] Knotless Operator Maintainer Lock [place] Suture Labrum - [id number] Implanted:Qty: 1 on 11/28/2018 by Manuela Graham MD at [facility] [place] Right: Hip [employer] [id number] 09/20/2019 [id number] / / [id number] Additional Health Concerns Infection Onset Date Last Indicated C. difficile 08/14/2018 08/13/2018 Insurance MEDICARE IDPA [facility] MEDICARE MEDICARE MEDICARE IDPA Care Teams Rougher Operator Relationship Specialty Start Date End Date Colton Dugan MD PCP - General Family Medicine 04/02/18
--- OUTSIDE RECORDS SUMMARY | 2025-04-05 18:00 | XMS_ITS | Encounter Summary ---
Author Organization [facility] Address [address] [place] [address] Care Team Providers Care Insulation And Flooring Assembler Name Role Phone Santo Constantino MD Primary Care Provider [phone] Encounter Details Date Type Department Care Team (Late st Contact Info) Description 10/12/2022 MyChart Message Enc [facility] [address] [place] [address] [email or web address], [facility] Provider Air Quality Message Social History Tobacco [...] Sex Assigned at Female 05/22/2024 11:06 AM STRATEGIC ANALYST Legal Sex Female 7:23 PM CDT Gender Identity Not on file Sexual Orientation Not on file documented as of this encounter Plan of Treatment Not on file documented as of this encounter Goals Goal Patient Goal Type Associated Problems Recent Progress Patient-Stated? Author HOME TO [facility] No Nel Herrera RN documented as of this encounter Visit Diagnoses Not on filedocumented in this encounter Additional Health Concerns Infection Onset Date Last Indicated Resolved Time COVID-19 Rule Out 05/23/2024 05/23/2024 05/23/2024 3:35 PM STRATEGIC ANALYST Assessment Noted Time PHQ-9 Depression Total Score: 2 12/25/19 22 2:12 PM CDT documented as of this encounter Care Teams Insulation And Flooring Assembler Relationship Specialty [place] [address] [place] [address] PCP - General FAMILY PRACTICE 12/11/19 documented as of this encounter
--- OUTSIDE RECORDS SUMMARY | 2025-04-05 18:00 | XMS_ITS | Clinical Summary ---
Author Organization [facility] Address [address], [facility] [address] [place] [address] Phone Care Team Providers Care Supervisor Acoustical Tile Carpenters Name Role Phone Colton Dugan MD Primary Care Provider [phone] Allergies Active Allergy Reactions Criticality Noted Date [...] 72.6 kg (160 lb) 06/10/2019 7:00 AM DIETITIAN HELPER Height 167.6 cm (5' 6) 06/10/2019 7:00 AM DIETITIAN HELPER Body Mass Index 25.82 06/10/2019 7:00 AM DIETITIAN HELPER Plan of Treatment Health Maintenance Due Date [...] Discontinued 02/23/2015, 12/16/2010 Human Papillomavirus (HPV) Immunization (No Doses Required) Completed Meningococcal Immunization (ACWY) Aged Out No longer [...] Maintenance Insurance MEDICARE [place]ICAID [place] Care Teams Supervisor Acoustical Tile Carpenters Relationship Specialty Start Date End Date Colton Dugan MD [address] [place] [id number] PCP - General Family Medicine 01/02/18
--- OUTSIDE RECORDS SUMMARY | 2025-04-05 18:00 | XMS_ITS | Data Portability ---
Author Organization [place] [facility], Main Office Address [address] [place] [address] Care Team Providers Care Skidder Name Role Phone TERRIEWAMARIKA - DO NOT USE, YASMIN Primary Care Provid er Assessment Encounter Date Assessment Date Assessment LastModified by Organization Details LastModified Time 03/26/2025 03/26/2025 54-year-old femharry horton presents for evaluation of her right knee. She reports pain has been ongoing for years, getting significantly worse. Is diffuse throughout the knee. She has had 7 surgeries in the past on that knee. She reports significant sensitivity as well. She has been doing physical therapy and also had a cortisone injection several years ago without significant improvement. Review of systems per patient questionnaire. She has a history of Crohn's, COPD, currently smokes less than 1 pack a day. She has significant hypersensitivity and exam was limited by that. It is with light touch throughout all parts of the knee. She has antalgic gait, difficult range of motion 10-120. 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 It is possible she has other structural issues with the knee but exam was extremely limited by her hypersensitivity. I would recommend referral to pain management and they can figure out ways to reduce her sensitivity. After they have evaluated and treated her if there is still something structural going on with the knee we can see her back [email or web address] Not available 03/31/2025 17:07:39 Plan of Treatment Reminders Order Date Submit Date Provider Last Modified By Organization Details Last Modified Time Details Appointments None recorded . Lab None recorded . Referral pain manageme nt referral - Please contact pt to schedule apt for R knee. Thanks 2024 025 [facility], [address], [place], [address], 5 08:50:30 Procedures None recorded . Surgeries None recorded . Imaging XR, knee, 4 or more view 2024 025 [email or web address] [facility] [place], [address], [place], [address], 5 14:32:28 Medication Orders None recorded . Patient TargetsNo targets recorded. Patient InstructionsNo instructions recorded. Reason for Referral Pain Management Referral for Pain of right knee region R knee Please contact pt to schedule apt for R knee. Thanks Referring Physician: Juan Alberto Gupta, Orthopedic Surgery, Encounter Date: 03/26/2025 Results Created Date Observation Date Name Description Value Unit Range Abnormal Flag Note LastModifiedBy Organization Detail LastModifiedTime 03/26/20 25 XR, knee, 4 or more view No observ ation record ed. [email or web address] [facility] [place] [address], [place], [address], 03/26/2025 16:12:10 Result Notes None recorded. Problems Name Problem SNOMED Code Status Onset Date Resolution Date Notes Provider Name and Address Organization Details Recorded Time Injury of lower limb 718570812 Active Not Available [facility] 3 14:10:30 Osteoarthr itis of knee 139992239 Active Not Available [facility] 3 14:10:30 Current tear of medial cartilage AND/OR meniscus of knee Active Not Available [facility] 3 14:10:30 Enthesopat hy of hip region 43489724 Active Not Available [facility] 3 14:10:30 Knee pain Active Not Available [facility] 3 14:10:30 Pain in limb 77169287 Active Not Available [facility] 3 14:10:30 Pain of right knee region 2083171438344 05 Active 2024 KELVIN Spencer null, [facility] 5 16:12:06 Problem Notes None recorded. Procedures Surgical History Date Name Laterality Status Provider Name and Address Organization Details Recorded Time Knee completed KELVIN Spencer [facility] 03/26/2025 16:10:19 procedure on appendix completed Cristin Padilla [facility] 03/26/2025 16:10:30 hysterectomy completed Cristin Padilla [facility] 03/26/2025 16:10:45 Hip surgery completed Cristin Padilla [facility] 03/26/2025 16:10:54 Gallbladder Surgery completed Cristin Padilla [facility] 03/26/2025 16:11:05 Imaging Results None recorded. Procedure Notes None recorded. Medical Equipment None Reported. Allergies Allergen ID Allergen Name Allergen Category Reaction Reaction Severity Criticality Documentation Date Start Date Code Code System Note Provider Name and Address Organization Details Recorded Time 70579 Substance with sulfonami de structure and antibacte rial mechanism of action (substanc e) medicatio n Not available Not available Not available 06/15/2022 85890 8003 SNOMED Not Available [facility] 3 14:12:22 57034 Non-stero idal anti-infl ammatory agent (substanc e) medicatio n Not available Not available Not available 06/15/2022 24072 5008 SNOMED Not Available [facility] 3 14:12:22 95300 ciproflox acin medicatio n swelling Not available Not available 03/26/20252018 2551 RxNorm IV only, swell ing, redne ss and itchi ng at IV site Not Available [facility]ul - External Data Service - prod 5 15:48:35 47398 ketorolac medicatio n Not available Not available [facility] 03/26/20252014 96557 RxNorm Can sai ate Injec tion, but not oral unrec ogniz ed react ion (text : Urtic aria, code: 06186 001) (from exter nal sourc e) Not Available [facility] - External Data Service - prod 5 15:48:37 52566 sulfasala zine medicatio n anaphylax is swelling Not available Not available [facility] 03/26/20252012 9524 RxNorm Not Available [facility] External Data Service - [facility] 15:48:37 85162 tolmetin medicatio n other Not available [facility] 03/26/20252012 26211 RxNorm esoph agiti s Not Available [facility] External Data Service - [facility] 15:48:37 Medications Name Sig Start Date Stop Date Status Note LastModified by Organization Details LastModified Time cyclobenzap rine 10 mg tablet 03/11 completed Not Available Not Available Not Available atorvastati n 40 mg tablet 05/15 completed Not Available Not Available Not Available methocarbam ol 500 mg tablet 03/11 completed Not Available Not Available Not Available venlafaxine ER 37.5 mg capsule,ext ended release 24 hr 03/11 completed Not Available Not Available Not Available potassium chloride ER 10 mEq capsule,ext ended release 03/11 completed Not Available Not Available Not Available clonidine HCl 0.1 mg tablet 03/11 completed Not Available Not Available Not Available prednisone 10 mg tablet 03/11 completed Not Available Not Available Not Available venlafaxine ER 75 mg capsule,ext ended release 24 hr 03/11 completed Not Available Not Available Not Available gabapentin 600 mg tablet 03/11 completed Not Available Not Available Not Available trazodone 50 mg tablet Take 1 tablet every day by oral route in the morning. 03/26 completed Not Available Not Available Not Available azithromyci n 250 mg tablet TAKE 2 TABLETS BY MOUTH ON DAY 1, AND THEN TAKE 1 TABLET BY MOUTH ONCE A DAY ON DAY 2 THROUGH DAY 5 03/26 completed Not Available Not Available Not Available pravastatin 40 mg tablet 03/11 completed Not Available Not Available Not Available tizanidine 4 mg tablet 03/11 completed Not Available Not Available Not Available fluconazole 150 mg tablet TAKE 1 TABLET BY MOUTH TODAY, MAY REPEAT DOSE IN THREE DAYS IF SYMPTOMS PERSIST 03/26 completed Not Available Not Available Not Available risperidone 4 mg tablet 03/11 completed Not Available Not Available Not Available sumatriptan 100 mg tablet TAKE 1/2 TABLET BY MOUTH AT ONSET OF MIGRAINE 03/26 completed Not Available Not Available Not Available hydrocodone 5 mg-acetamin ophen 325 mg tablet TAKE 1 TABLET BY MOUTH EVERY 8 HOURS NEEDED FOR PAIN 03/26 completed Not Available Not Available Not Available prazosin 1 mg capsule 03/11 completed Not Available Not Available Not Available ondansetron HCl 8 mg tablet 03/11 completed Not Available Not Available Not Available sucralfate 1 gram tablet 03/11 completed Not Available Not Available Not Available sumatriptan 25 mg tablet TAKE ONE TABLET BY MOUTH AT ONSET OF HEADACHE, IF NO RELIEG MAY REPEAT 1 TABLET AFTER AT LEAST 2 HOURS. MAX OF 4 TABLETS IN A 24 HOUR PERIOD active Not Available Not Available No t Available ondansetron HCl 4 mg tablet 03/11 completed Not Available Not Available Not Available prednisone 20 mg tablet TAKE 2 TABLETS BY MOUTH ONCE DAILY FOR 5 DAYS 03/26 completed Not Available Not Available Not Available clonazepam 0.5 mg tablet 03/11 completed Not Available Not Available Not Available gabapentin 400 mg capsule 03/11 completed Not Available Not Available Not Available sumatriptan 50 mg tablet 03/11 completed Not Available Not Available Not Available cyanocobala min (vit B-12) 1,000 mcg tablet TAKE 1 TABLET BY MOUTH EVERY DAY 03/11 completed Not Available Not Available Not Available metronidazo le 500 mg tablet 03/26 completed Not Available Not Available Not Available hydroxyzine HCl 50 mg tablet TAKE 1 TABLET BY MOUTH EVERY DAY AT BEDTIME NEEDED FOR INSOMNIA active Not Available Not Available No t Available acetaminoph en 300 mg-codeine 30 mg tablet TK 1 T PO Q 4 TO 6 H PRN P 03/11 completed Not Available Not Available Not Available prochlorper azine maleate 10 mg tablet 03/11 completed Not Available Not Available Not Available ciprofloxac in 500 mg tablet 03/11 completed Not Available Not Available Not Available morphine ER 30 mg tablet,exte nded release 03/11 completed Not Available Not Available Not Available hydrocodone 10 mg-acetamin ophen 325 mg tablet TAKE 1 TABLET BY MOUTH EVERY 6 HOURS NEEDED FOR PAIN 03/26 completed Not Available Not Available Not Available omeprazole 40 mg capsule,del ayed release active Not Available Not Available Not Available tramadol 50 mg tablet 03/11 completed Not Available Not Available Not Available amitriptyli ne 50 mg tablet 03/11 completed Not Available Not Available Not Available ondansetron 8 mg disintegrat ing tablet 03/11 completed Not Available Not Available Not Available lidocaine-p rilocaine 2.5 %-2.5 % topical cream 03/11 completed Not Available Not Available Not Available risperidone 2 mg tablet 03/11 completed Not Available Not Available Not Available oxycodone-a cetaminophe n 5 mg-325 mg tablet 03/11 completed Not Available Not Available Not Available alprazolam 0.5 mg tablet 03/11 completed Not Available Not Available Not Available ofloxacin 0.3 % ear drops 03/11 completed Not Available Not Available Not Available hydromorpho ne 2 mg tablet 03/11 completed Not Available Not Available Not Available alprazolam 0.25 mg tablet 03/11 completed Not Available Not Available Not Available famotidine 20 mg tablet 03/26 completed Not Available Not Available Not Available lorazepam 0.5 mg tablet 03/11 completed Not Available Not Available Not Available Nitrostat 0.4 mg sublingual tablet 03/11 completed Not Available Not Available Not Available oxycodone-a cetaminophe n 10 mg-325 mg tablet 03/11 completed Not Available Not Available Not Available trazodone 100 mg tablet TAKE 1 TABLET BY MOUTH EVERY DAY AT BEDTIME NEEDED FOR INSOMNIA active Not Available Not Available No t Available dicyclomine 20 mg tablet 03/26 completed Not Available Not Available Not Available Kenalog 10 mg/mL suspension for injection In office injection administe red by the provider 03/26 completed [facility]: 0003- 0494- 20 Not Available Not Available Not Available diazepam 2 mg tablet 03/11 completed Not Available Not Available Not Available morphine 30 mg immediate release tablet 03/11 completed Not Available Not Available Not Available rizatriptan 10 mg disintegrat ing tablet 03/11 completed Not Available Not Available Not Available hydrocodone 7.5 mg-acetamin ophen 325 mg tablet 03/11 completed Not Available Not Available Not Available cephalexin 500 mg capsule TAKE 1 CAPSULE BY MOUTH EVERY 12 HOURS 03/26 completed Not Available Not Available Not Available hyoscyamine sulfate 0.125 mg tablet TAKE 1 TABLET BY MOUTH 4 TIMES A DAY NEEDED FOR DYSPEPSIA active Not Available Not Available No t Available ranitidine 150 mg tablet 03/11 completed Not Available Not Available Not Available prednisone 50 mg tablet TAKE 1 TABLET BY MOUTH ONCE DAILY FOR 5 DAYS active Not Available Not Available No t Available fluorometho lone 0.1 % eye drops,suspe nsion 03/11 completed Not Available Not Available Not Available promethazin e 25 mg tablet 03/26 completed Not Available Not Available Not Available divalproex 125 mg tablet,patti yed release 04/02 completed Not Available Not Available Not Available bupropion HCl 75 mg tablet 03/26 completed Not Available Not Available Not Available orphenadrin e citrate ER 100 mg tablet,exte nded release 03/11 completed Not Available Not Available Not Available gabapentin 300 mg capsule 03/11 completed Not Available Not Available Not Available omeprazole 20 mg capsule,del ayed release 03/11 completed Not Available Not Available Not Available folic acid 1 mg tablet TAKE 1 TABLET BY MOUTH EVERY DAY 03/11 completed Not Available Not Available Not Available hydroxyzine HCl 25 mg tablet 03/26 completed Not Available Not Available Not Available morphine ER 15 mg tablet,exte nded release 03/11 completed Not Available Not Available Not Available ranitidine 150 mg capsule 03/11 completed Not Available Not Available Not Available ziprasidone 40 mg capsule 04/02 completed Not Available Not Available Not Available mirtazapine 15 mg tablet 03/26 completed Not Available Not Available Not Available ergocalcife rol (vitamin D2) 1,250 mcg (50,000 unit) capsule TAKE ONE CAPSULE BY MOUTH ONCE WEEKLY 03/11 completed Not Available Not Available Not Available Promethegan 25 mg rectal suppository 03/11 completed Not Available Not Available Not Available lorazepam 1 mg tablet 03/11 completed Not Available Not Available Not Available polyethylen e glycol 3350 17 gram/dose oral powder 03/11 completed Not Available Not Available Not Available levofloxaci n 500 mg tablet 03/11 completed Not Available Not Available Not Available oxycodone-a cetaminophe n 7.5 mg-325 mg tablet 03/11 completed Not Available Not Available Not Available methylpredn isolone 4 mg tablets in a dose pack 03/11 completed Not Available Not Available Not Available rizatriptan 5 mg disintegrat ing tablet 03/11 completed Not Available Not Available Not Available propranolol 20 mg tablet 03/11 completed Not Available Not Available Not Available ziprasidone 60 mg capsule 05/13 completed Not Available Not Available Not Available ondansetron 4 mg disintegrat ing tablet DISSOLVE 1 TABLET IN MOUTH EVERY 8 HOURS NEEDED FOR NAUSEA AND VOMITING active Not Available Not Available No t Available fluoxetine 20 mg capsule 03/11 completed Not Available Not Available Not Available amitriptyli ne 100 mg tablet 03/11 completed Not Available Not Available Not Available dicyclomine 10 mg capsule 03/26 completed Not Available Not Available Not Available olanzapine 20 mg tablet 03/11 completed Not Available Not Available Not Available lamotrigine 100 mg tablet TAKE 1 TABLET BY MOUTH ONCE DAILY FOR 30 DAYS active Not Available Not Available No t Available risperidone 0.5 mg tablet 03/11 completed Not Available Not Available Not Available ipratropium bromide 0.02 % solution for inhalation TAKE 2.5MLS BY NEBULIZAT ION 4 TIMES DAILY 03/26 completed Not Available Not Available Not Available diazepam 5 mg tablet 05/13 completed Not Available Not Available Not Available metoclopram virgil 10 mg tablet 03/11 completed Not Available Not Available Not Available amoxicillin 875 mg-potassiu m clavulanate 125 mg tablet TAKE 1 TABLET BY MOUTH EVERY 12 HOURS FOR 7 DAYS active Not Available Not Available No t Available Ventolin HFA 90 mcg/actuati on aerosol inhaler 03/11 completed Not Available Not Available Not Available buspirone 15 mg tablet 04/02 completed Not Available Not Available Not Available oxycodone 5 mg tablet 03/11 completed Not Available Not Available Not Available cyclobenzap rine 5 mg tablet 03/26 completed Not Available Not Available Not Available Crestor 20 mg tablet 03/11 completed Not Available Not Available Not Available Crestor 40 mg tablet 03/11 completed Not Available Not Available Not Available bupropion HCl XL 150 mg 24 hr tablet, extended release TAKE 1 TABLET BY MOUTH ONCE DAILY 03/26 completed Not Available Not Available Not Available epinastine 0.05 % eye drops 03/11 completed Not Available Not Available Not Available Spiriva with HandiHaler 18 mcg and inhalation capsules 03/11 completed Not Available Not Available Not Available mirtazapine 7.5 mg tablet TAKE 1 TABLET BY MOUTH ONCE DAILY AT BEDTIME active Not Available Not Available No t Available nitrofurant oin monohydrate /macrocryst als 100 mg capsule 03/11 completed Not Available Not Available Not Available fenofibrate 160 mg tablet 03/11 completed Not Available Not Available Not Available Lyrica 100 mg capsule 05/15 completed Not Available Not Available Not Available omeprazole 03/26 completed Not Available Not Available Not Available Amitiza 24 mcg capsule 03/11 completed Not Available Not Available Not Available lidocaine (PF) 10 mg/mL (1 %) injection solution In office injection administe red by the provider active [facility]: 0409- 4276- 17 Not Available Not Available Not Available Pataday 0.2 % eye drops PLACE 1 DROP INTO BOTH EYES ONCE A DAY 03/11 completed Not Available Not Available Not Available peg 3350 240 gram-electr olytes 22.72 gram-6.72 g-5.84 g powdr for soln 03/11 completed Not Available Not Available Not Available oxycodone 10 mg tablet 03/11 completed Not Available Not Available Not Available Voltaren 1 % topical gel 03/11 completed Not Available Not Available Not Available Latuda 40 mg tablet 03/11 completed Not Available Not Available Not Available Asmanex HFA 200 mcg/actuati on aerosol inhaler 03/11 completed Not Available Not Available Not Available Vraylar 4.5 mg capsule TAKE 1 CAPSULE BY MOUTH ONCE DAILY active Not Available Not Available No t Available Vitals None Recorded Social History Question Answer Notes LastModified by Organizat ion Details LastModified Time Tobacco Smoking Status Current Every Day Smoker KELVIN Spencer null, [place] [facility] [place] [employer] 03/26/2025 16:09:57 What Was The Date Of Your Most Recent Tobacco Screening? 03/26/2025 [email or web address] Information not available 03/26/2025 Sex: Unknown Functional Status Question Answer Note LastModified by Organization D etails LastModified Time What is your level of alcohol consumption? None [email or web address] Information not available 03/26/2025 Mental Status None recorded. Family History Nothing Reported. Medical History Condition Response COPD Y ARTHRITIS Y CANCER: SPECIFY Y Gynecological HistoryNo gynecological history recorded. Obstetrics History GPAL:G 0 P 0 0 0 0 Past Encounters Encounter ID Performer Location Encounter Start Date Encounter Closed Date Diagnosis/Indication Diagnosis SNOMED-CT Code Diagnosis ICD10 Code Diagnosis IMO Codes Diagnosis Note [id number] Juan Alberto Gupta MD [facility] [place] [address] [place] [address] 03/26/2025 15:47:22 03/26/2025 16:46:30 Pain of right knee region 7626077343 12375 M25.561 80318771 Health Concerns Section Related Observation LastModified by Organization Detai ls LastModified Time None Recorded Concern Status LastModified by Organization Details LastModified Time None Recorded Advance Directives Directive None Recorded Payers Insurance Date Sequence Insurance Name Policy Number Policy Mccoy Covered Member ID Mccoy Member ID Guarantor Name 04/02/2025 1 [place] Elaine Pizarro [id number] Elaine Pizarro 03/26/2025 2 [place]CON[place] WHEN MEDICARE OR MEDICARE REPLACEMENT PRIMARY) Elaine Pizarro [id number] Elaine Pizarro 03/26/2025 [place]ICAID [place] DURABLE MEDICAL EQUIPMENT Elaine Pizarro [id number] Elaine Pizarro 03/26/2025 [employer] - DMEPOS ASSIGNED (MEDICARE DME REGION B) Elaine Pizarro [id number] Elaine Pizarro OBGyn Episode No OBEpisode recorded.
--- OUTSIDE RECORDS SUMMARY | 2025-04-05 18:00 | XMS_ITS | Encounter Summary ---
Author Organization [facility] Address [address] [place] [address] Care Team Providers Care Parasitology Teacher Name Role Phone Colton Dugan MD Primary Care Provider [phone] Santo Constantino MD Primary Care Provider [phone] Encounter Details Date Type Department Care Team (Late st Contact Info) Description 09/22/2018 Abstract [facility] CONVERSION [id number] [place] [address] , Generic Conversion, Social History Tobacco Use [...] Sex Assigned at Female 05/22/2024 11:06 AM [employer]ET [employer] Legal Sex Female 7:23 PM CDT Gender [...] Rule Out 04/02/2020 04/02/2020 04/03/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
--- NOTE | 2025-04-05 19:03 | ED.LOWEXIN ---
HPI - Extremity Injury (Lower) General Chief Complaint: Extremity Injury, Lower Stated Complaint: R knee pain Time Seen by Provider: 04/05/25 17:32 Source: patient Mode of arrival: ambulatory Limitations: no limitations History of Present Illness HPI Narrative: This is a 54 year old female that presents to the ER for right knee pain. Ongoing over the last couple of days. Reports swelling to the area. Denies fevers, redness. Related Data Home Medications ?Medication ?Instructions ?Recorded ?Confirmed ?Last Taken ?Type omeprazole 40 mg capsule,delayed 40 mg PO DAILY 12/29/20 02/24/25 02/24/25 History release cariprazine 4.5 mg capsule 4.5 mg PO DAILY 05/01/21 02/24/25 02/24/25 History (Vraylar) albuterol 90 mcg-budesonide 80 2 inh inhalation DAILY PRN 10/10/24 02/24/25 02/23/25 History mcg/actuation HFA aerosol inhaler shortness of breath buprenorphine 4 mg-naloxone 1 mg 1 film sublingual BID 02/24/25 02/24/25 02/24/25 History sublingual film (Suboxone) Allergies Allergy/AdvReac Type Severity Reaction Status Date / Time ciprofloxacin Allergy Unknown Rash Verified 04/05/25 15:56 Sulfa (Sulfonamide Allergy Unknown Anaphylaxis Verified 04/05/25 15:56 Antibiotics) ketorolac AdvReac Intermediate Nausea Verified 04/05/25 15:56 NSAIDS (Non-Steroidal AdvReac Intermediate Nausea Verified 04/05/25 15:56 Anti-Inflamma Review of Systems Review of Systems: All systems reviewed & are unremarkable except as noted in HPI and below PMFSH Past Medical History Medical History (Updated 04/05/25 @ 19:07 by Aga Elmore PA-C) Insomnia Tobacco use disorder C. difficile diarrhea Anemia Schizoaffective disorder Previous known suicide attempt x2 Anxiety Depression History of bipolar disorder History of osteoporosis Arthritis Fibroids HPV (human papilloma virus) anogenital infection Ovarian cancer GERD (gastroesophageal reflux disease) IBS (irritable bowel syndrome) Pancreatitis Crohn's disease Asthma COPD (chronic obstructive pulmonary disease) HLD (hyperlipidemia) History of angina DJD (degenerative joint disease) Migraine Surgical History Surgical History H/O Spinal surgery T12 cartilage removed H/O right knee surgery H/O: hysterectomy History of cholecystectomy History of tonsillectomy Family History Family History Sibling Depression Hypertension Family history of elevated blood lipids Father Family history of arthritis Other Family history of anemia Family history of mental disorder Family history of thyroid disease Social History Social History (Updated 12/18/24 @ 12:52 by Lyssa Oliver [facility]) Years smoked: 30 Smoking status: Current every day smoker Tobacco type: cigarettes Alcohol intake: never Drinks per week: 1 Substance use: current Substance use type: prescription drug Gender identity (if verbalized by the patient): Female Exam Narrative: GENERAL: Well-appearing, well-nourished, and in no acute distress. HEAD: Normocephalic, atraumatic. EYES: EOMI. EXTREMITIES: Normal range of motion. Mild edema about the right knee anteriorly without overlying erythema. Normal DP pulse. Normal sensation SKIN: Warm, dry, no rash. NEURO: No focal deficits. Alert and oriented x3. PSYCH: Normal mood and affect Course Vital Signs Vital signs: Vital Signs Temperature 97.7 F 04/05/25 15:52 Pulse Rate 97 04/05/25 15:52 Respiratory Rate 16 04/05/25 15:52 Blood Pressure 102/70 04/05/25 15:52 Pulse Oximetry 99 04/05/25 15:52 Temperature 98.0 F 04/05/25 19:31 Pulse Rate 79 04/05/25 19:31 Respiratory Rate 16 04/05/25 19:31 Blood Pressure 147/82 H 04/05/25 19:31 Pulse Oximetry 98 04/05/25 19:31 [facility] MDM Narrative Medical decision making narrative: Patient presents to the emergency department for right knee pain. Ongoing over the last couple of days. No recent injuries or trauma. Patient is afebrile and nontoxic appearing. No erythema of the knee. Right knee x-ray shows bone infarcts of the distal femur and proximal tibia. Patient does report significant history of trauma to this knee and several previous surgeries. Also showing chondrocalcinosis. Effusion of the suprapatellar bursa. Patient updated workup. Will trial steroid taper. Pain medication as needed. She does report she has follow-up with orthopedics doctor. Given warnings to return to the ER Differential Diagnosis Differential Diagnosis: bursitis, arthritis, CPPD, gout Imaging Data Radiologist's impression: ITS Impressions Knee X-Ray 04/05/25 17:56 IMPRESSION: 1. 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 2. Chondrocalcinosis of menisci and articular cartilage. Large effusion in the knee joint. Symptoms are persistent and not responding to conservative treatment, MRI is indicated. Critical Care Time Critical Care Time Critical Care Time: No Discharge Plan Discharge Clinical Impression: Bursitis Qualifiers: Bursitis location: knee Knee bursitis location: suprapatellar bursitis Laterality: right Qualified Code(s): M70.51 - Other bursitis of knee, right knee Patient Disposition: Home Condition: Stable Instructions: Knee Bursitis (ED) Additional Instructions: Return to the ER if you experience fever, redness of your knee, numbness or any other symptoms that are concerning to you Wear ADRIANA wrap and use crutches. Ice and elevate extremity. Tylenol as needed for pain. Prescribed pain medication as needed. Take steroid taper as prescribed Follow up with your orthopedics doctor for further care. Patient Language: Turkmen Prescriptions: New hydrocodone-acetaminophen 5-325 mg tablet 1 tablet PO Q8H PRN (Reason: pain) Qty: 10 0RF methylprednisolone 4 mg tablets,dose pack See Rx Instructions .ROUTE .COMPLEX Qty: 21 0RF Rx Instructions: orally per package directions No Action Vraylar 4.5 mg capsule 4.5 mg PO DAILY albuterol-budesonide 90-80 mcg/actuation HFA aerosol inhaler 2 inh inhalation DAILY PRN (Reason: shortness of breath) sumatriptan succinate 25 mg tablet See Rx Instructions PO .COMPLEX Qty: 20 0RF Rx Instructions: take 1 tab at onset of headache; if no relief may repeat 1 tab after at least 2 hrs; max = 4 tabs/24 hr PO hydroxyzine HCl 50 mg tablet 50 mg PO QHS PRN (Reason: insomnia) Qty: 90 0RF trazodone 100 mg tablet 100 mg PO QHS PRN (Reason: insomnia) Qty: 90 0RF omeprazole 40 mg capsule,delayed release(DR/EC) 40 mg PO DAILY ondansetron 4 mg tablet,disintegrating 4 mg PO Q8H PRN (Reason: nausea and vomiting) Qty: 14 0RF buprenorphine-naloxone [Suboxone] 4-1 mg film 1 film sublingual BID azithromycin 250 mg tablet See Rx Instructions .ROUTE .COMPLEX Qty: 6 0RF Rx Instructions: For 250 mg dose pack: take 500 mg today (day 1), then 250 mg for 4 days (days 2-5) prednisone 50 mg tablet 50 mg PO DAILY 5 Days Qty: 5 0RF amoxicillin-pot clavulanate 875-125 mg tablet 1 tablet PO Q12H 7 Days Qty: 14 0RF Follow-up/Referrals: Alexis Jules DO [Primary Care Provider, Family Practice]
[2025-04-05] MEDS: ACETAMINOPHEN 325 MG TABLET 650 MG PO (19:24)
[2025-04-05] MEDS: HYDROcodone/acetaminophen (*CRX) 5-325 MG TABLET 1 TAB PO (19:25)
[2025-04-05 19:31] VITALS: BP 147/82; PULSE 79; RESP 16; TEMP 36.7; O2SAT 98
== END 2025-04-05 19:33 | disposition home or self-care (01) ==
PROVIDERS: Emergency Provider Physician Assistant; PCP Family Medicine
DX: M70.51 Other bursitis of knee, right knee (principal); J44.9 Chronic obstructive pulmonary disease, unspecified; E78.5 Hyperlipidemia, unspecified; K50.90 Crohn's disease, unspecified, without complications; K21.9 Gastro-esophageal reflux disease without esophagitis; M81.0 Age-related osteoporosis without current pathological fracture; M19.90 Unspecified osteoarthritis, unspecified site; F25.9 Schizoaffective disorder, unspecified; F41.9 Anxiety disorder, unspecified; F31.9 Bipolar disorder, unspecified; F17.210 Nicotine dependence, cigarettes, uncomplicated; Z85.43 Personal history of malignant neoplasm of ovary; Z90.710 Acquired absence of both cervix and uterus; Z90.49 Acquired absence of other specified parts of digestive tract; M11.261 Other chondrocalcinosis, right knee; Z79.899 Other long term (current) drug therapy
CPT/HCPCS: 73564; 99283; A9270